=== PATIENT | male | born 1990 | race American Indian/Alaskan Native ===

== ENCOUNTER 2019-01-18 20:23 | Emergency (ER) | payer BC ==
[2019-01-18 20:30] VITALS: BP 118/79
[2019-01-18] MEDS ORDERED: DUONEB *Not for PRN Use IH ONE (20:31)
[2019-01-18] MEDS ORDERED: DECADRON IM ONE (20:31)
--- NOTE | 2019-01-18 20:31 | Emergency Department Report ---
Blank Doc - Documentation Documentation: 28-year-old male that presents with cough with SOB. This initial assessment/diagnostic orders/clinical plan/treatment(s) is/are subject to change based on patient's health status, clinical progression and re- assessment by fellow clinical providers in the ED. Further treatment and workup at subsequent clinical providers discretion. Patient/guardians urged not to elope from the ED as their condition may be serious if not clinically assessed and managed. Initial orders include: 1- Patient sent to [facility] for further evaluation and treatment 2- breathing treatment/steroids 3- CXR
--- NOTE | 2019-01-18 21:44 | XRay Report ---
CHEST 2 VIEWS INDICATION / CLINICAL INFORMATION: cough. COMPARISON: None available. FINDINGS: SUPPORT DEVICES: None. HEART / MEDIASTINUM: No significant abnormality. LUNGS / PLEURA: No significant pulmonary or pleural abnormality. No pneumothorax. ADDITIONAL FINDINGS: No significant additional findings. IMPRESSION: 1. No acute findings. Signer Name: Howie Spence MD Signed: 01/18/2019 9:39 PM Workstation Name: [id number]
--- NOTE | 2019-01-18 22:18 | Emergency Department Report ---
ED Shortness of Breath [facility] - General Chief Complaint: Dyspnea/Respdistress Stated Complaint: SOB Time Seen by Provider: 01/18/19 20:30 Source: patient Mode of arrival: Ambulatory Limitations: No Limitations - History of Present Illness Initial Comments: 28-year-old -[place] male presents to the emergency room for cough and shortness of breath. Patient reports he was seen by PMD earlier today and was told he had pneumonia. Patient came in for chest x-ray per his primary care provider. Patient reports he was placed on antibiotics but does not know the name. MD Complaint: shortness of breath, cough - Related Data Allergies Allergy/AdvReac Type Severity Reaction Status Date / Time No Known Allergies Allergy Verified 01/18/19 20:30 ED Review of Systems ROS: Stated complaint: SOB Other details as noted in HPI ED Past Medical Hx - Past Medical History Previous Medical History?: No - Surgical History Past Surgical History?: No - Social History Smoking Status: Current Every Day Smoker Substance Use Type: Alcohol ED Physical Exam - General Limitations: No Limitations General appearance: alert, in no apparent distress - Head Head exam: Present: atraumatic, normocephalic - Eye Eye exam: Present: normal appearance - ENT ENT exam: Present: mucous membranes moist - Respiratory Respiratory exam: Present: normal lung sounds bilaterally. Absent: respiratory distress - Cardiovascular Cardiovascular Exam: Present: regular rate, normal rhythm. Absent: systolic murmur, diastolic murmur, rubs, gallop - Back Exam Back exam: Present: normal inspection, full ROM - Neurological Exam Neurological exam: Present: alert, oriented X3 - Psychiatric Psychiatric exam: Present: normal affect, normal mood - Skin Skin exam: Present: warm, dry, intact, normal color. Absent: rash ED Course Vital Signs 01/18/19 01/18/19 20:24 21:11 Temperature 98.2 F Pulse Rate 73 Pulse Rate [ 97 H Anterior] Respiratory 18 Rate Respiratory 20 Rate [Anterior] Blood Pressure 118/79 O2 Sat by Pulse 97 Oximetry ED Medical Decision Making - Radiology Data Radiology results: report reviewed Patient: LETICIA DILLARD MR#: [id number] : 1990 Acct:[id number] Age/Sex: 28 / M ADM Date: 01/18/19 Loc: ED Attending Dr: Ordering Physician: DARRUIS GALLARDO NP Date of Service: 01/18/19 Procedure(s): XR chest routine 2V Accession Number(s): [id number] cc: DARRIUS GALLARDO NP Fluoro Time In Minutes: CHEST 2 VIEWS INDICATION / CLINICAL INFORMATION: cough. COMPARISON: None available. FINDINGS: SUPPORT DEVICES: None. HEART / MEDIASTINUM: No significant abnormality. LUNGS / PLEURA: No significant pulmonary or pleural abnormality. No pneumothorax. ADDITIONAL FINDINGS: No significant additional findings. IMPRESSION: 1. No acute findings. Signer Name: Howie Spence MD Signed: 01/18/2019 9:39 PM Workstation Name: [id number] Transcribed By: TAVIA Dictated By: Howie Spence MD Electronically Authenticated By: Howie Spence MD Signed Date/Time: 01/18/192138 DD/ 37 TD/TT: - Medical Decision Making 28-year-old -[place] male presents to the emergency room for cough and shortness of breath. Patient reports he was seen by PMD earlier today and was told he had pneumonia. Patient came in for chest x-ray per his primary care provider. Patient reports he was placed on antibiotics but does not know the name. CXR completed. Normal examination. Patient is to continue with antibiotics as prescribed by his Provider. Critical care attestation.: If time is entered above; I have spent that time in minutes in the direct care of this critically ill patient, excluding procedure time. ED Disposition Clinical Impression: Cough Disposition: DC-01 TO HOME OR SELFCARE Is pt being admited?: No Does the pt Need Aspirin: No Condition: Stable Instructions: Acute Cough (ED) Additional Instructions: Please continue with antibiotics and cough medication tablets per prescribed by your primary care provider. Please increase her fluid intake eventually as tolerated. Follow back up with her primary care provider next 5-7 days if symptoms aren't improved Referrals: Your,PCP [Other] - 3-5 Days Forms: Work/School Release Form(ED)
== END 2019-01-18 22:22 | disposition home or self-care (01) ==
LOC: ED 20:23
DX: J18.9 Pneumonia, unspecified organism (principal); F17.200 Nicotine dependence, unspecified, uncomplicated
CPT/HCPCS: 71046; 94640; 96372; 99284; J1100; 94644

== ENCOUNTER 2019-04-11 23:08 | Emergency (ER) | payer SELFPAY ==
[2019-04-11 23:14] VITALS: BP 132/72
[2019-04-11] MEDS ORDERED: KETOROLAC 60 MG/2 ML INJ IM STA (23:44)
[2019-04-11] MEDS ORDERED: HYDROcodone/ACETAMINOPHEN 10-325MG TAB PO STA (23:50)
[2019-04-11] MEDS ORDERED: METAXALONE 800 MG TAB PO STA (23:52)
--- NOTE | 2019-04-11 23:58 | Emergency Department Report ---
ED Back Pain/Injury HPI - General Chief Complaint: Back Pain/Injury Stated Complaint: BACK PAIN Time Seen by Provider: 04/11/19 23:44 Source: patient Limitations: No Limitations - History of Present Illness MD Complaint: back pain, back injury -: days(s) Similar Symptoms Previously: Yes Radiation: none Severity: moderate Quality: dull, aching Consistency: constant Improves With: none Worsens With: none Associated Symptoms: denies: chest pain, numbness, difficulty walking, cough, incontinence, fever/chills, constipation, headaches, loss of appetite, rash, seizure, shortness of breath - Related Data Previous Rx's Medication Instructions Recorded Last Taken Type Ketorolac [Toradol] 10 mg PO Q6H PRN #15 tablet 04/12/19 Unknown Rx methOCARBAMOL [Robaxin] 750 mg PO Q8H PRN #21 tablet 04/12/19 Unknown Rx Allergies Allergy/AdvReac Type Severity Reaction Status Date / Time No Known Allergies Allergy Verified 01/18/19 20:30 ED Review of Systems ROS: Stated complaint: BACK PAIN Other details as noted in HPI Comment: All other systems reviewed and negative ED Past Medical Hx - Past Medical History Previous Medical History?: No - Surgical History Hx Cholecystectomy: Yes - Social History Smoking Status: Current Every Day Smoker Substance Use Type: Alcohol - Medications Home Medications: Home Medications Medication Instructions Recorded Confirmed Last Taken Type Ketorolac [Toradol] 10 mg PO Q6H PRN #15 tablet 04/12/19 Unknown Rx methOCARBAMOL [Robaxin] 750 mg PO Q8H PRN #21 tablet 04/12/19 Unknown Rx ED Physical Exam - General Limitations: No Limitations General appearance: alert, in no apparent distress - Head Head exam: Present: atraumatic, normocephalic - Eye Eye exam: Present: normal appearance, PERRL, EOMI Pupils: Present: normal accommodation - ENT ENT exam: Present: normal exam, normal orophraynx, mucous membranes moist, TM's normal bilaterally - Neck Neck exam: Present: normal inspection, tenderness. Absent: meningismus, lymphadenopathy, thyromegaly - Respiratory Respiratory exam: Present: normal lung sounds bilaterally. Absent: respiratory distress, wheezes, rales, rhonchi, chest wall tenderness, accessory muscle use, decreased breath sounds - Cardiovascular Cardiovascular Exam: Present: regular rate, normal rhythm. Absent: tachycardia, systolic murmur, diastolic murmur, rubs, gallop - GI/Abdominal GI/Abdominal exam: Present: soft, normal bowel sounds. Absent: tenderness, guarding, hyperactive bowel sounds, hypoactive bowel sounds, organomegaly, mass, bruit, pulsatile mass - Rectal Rectal exam: Present: deferred - Extremities Exam Extremities exam: Present: normal inspection, normal capillary refill - Back Exam Back exam: Present: normal inspection, other. Absent: CVA tenderness (R), CVA tenderness (L), muscle spasm, paraspinal tenderness, vertebral tenderness - Neurological Exam Neurological exam: Present: alert, oriented X3, CN II-XII intact, normal gait. Absent: motor sensory deficit, reflexes normal - Psychiatric Psychiatric exam: Present: normal affect, normal mood. Absent: anxious, flat affect, homicidal ideation - Skin Skin exam: Present: warm, dry, intact, normal color. Absent: rash, cyanosis, diaphoretic, urticaria ED Course Vital Signs 04/11/19 04/11/19 04/12/19 23:11 23:56 00:10 Temperature 98.7 F Pulse Rate 81 Respiratory 18 20 20 Rate Blood Pressure 132/72 O2 Sat by Pulse 94 Oximetry ED Medical Decision Making - Medical Decision Making Mr. Graham presents emergency department complaining of acute onset of back pain that started earlier today when he had awakened. He denies any recent traumatic injury. Physical examination and history showed no neurological urgencies or emergencies. Clinically this patient can be ruled out for serious pathology given there is a completely normal neurological exam, no history of IV drug use, and no history of bowel or bladder incontinence, no perianal numbness/tingling, no constipation or urinary retention. Once the patient?s pain was adequately controlled, the patient was able to ambulate and be discharged in stable condition with anticipatory guidance provided. Given History and Exam I estimate there is LOW risk for ABDOMINAL AORTIC ANEURYSM, CAUDA EQUINA SYNDROME, EPIDURAL MASS LESION, SPINAL STENOSIS, OR HERNIATED DISK CAUSING SEVERE STENOSIS, Spinal Cord Compression Syndrome, Vertebral Malignancy/Mets, acute Spinal Fracture, Vertebral Osteomyelitis, Epidural Abscess, Infected or Obstructing Kidney Stone, thus I consider the discharge disposition reasonable. We have discussed the diagnosis and risks, and we agree with discharging home to follow-up with their primary doctor. We also discussed returning to the Emergency Department immediately if new or worsening symptoms occur. We have discussed the symptoms which are most concerning (e.g., saddle anesthesia, urinary or bowel incontinence or retention, changing or worsening pain) that necessitate immediate return Their presentation appears most likely to be secondary to non-emergent musculoskeletal etiology vs non-emergent disc herniation. Critical care attestation.: If time is entered above; I have spent that time in minutes in the direct care of this critically ill patient, excluding procedure time. ED Disposition Clinical Impression: Lumbago Disposition: TO HOME OR SELFCARE Is pt being admited?: No Does the pt Need Aspirin: No Condition: Stable Instructions: Low Back Strain (ED), Back Pain (ED) Prescriptions: methOCARBAMOL [Robaxin] 750 mg PO Q8H PRN #21 tablet PRN Reason: Spasms Ketorolac [Toradol] 10 mg PO Q6H PRN #15 tablet PRN Reason: Pain Referrals: [facility] [Provider Group] - 2-3 Days
== END 2019-04-12 00:27 | disposition home or self-care (01) ==
LOC: ED 23:08
DX: M54.5 Low back pain (principal); F17.200 Nicotine dependence, unspecified, uncomplicated; F10.10 Alcohol abuse, uncomplicated; Z90.49 Acquired absence of other specified parts of digestive tract; Z79.899 Other long term (current) drug therapy
CPT/HCPCS: 96372; 99282; J1885

== ENCOUNTER 2019-05-07 00:38 | Emergency (ER) | payer BC ==
[2019-05-07 00:54] VITALS: BP 118/72
--- NOTE | 2019-05-07 01:09 | Emergency Department Report ---
HPI - General Chief Complaint: Upper Respiratory Infection Time Seen by Provider: 05/07/19 00:58 - HPI HPI: Room 34 The patient is 28-year-old male presenting with chief complaint of cough and body aches. The patient states he's had a cough that been productive of yellow sputum for approximately 1 week. Patient admits to a subjective fever, dizziness and fatigue. The patient states he's been taking DayQuil and TheraFlu but has not helped. This evening patient began to feel hot and had "aching" in his bones. Patient denies rhinorrhea or sick contacts. The patient states he was taking Keflex for the past 2 days from previous prescription he never completed. ED Past Medical Hx - Past Medical History Previous Medical History?: No Additional medical history: Infectious disease process (CD4 WNL Winter 2018) - Surgical History Past Surgical History?: Yes Hx Cholecystectomy: Yes - Family History Family history: no significant - Social History Smoking Status: Current Every Day Smoker (1/2 pack per day) Substance Use Type: Alcohol (occasional) - Medications Home Medications: Home Medications Medication Instructions Recorded Confirmed Last Taken Type Ketorolac [Toradol] 10 mg PO Q6H PRN #15 tablet 04/12/19 Unknown Rx methOCARBAMOL [Robaxin] 750 mg PO Q8H PRN #21 tablet 04/12/19 Unknown Rx ALBUTEROL Inhaler (OR & NICU) 2 puff IH QID PRN #8.5 gram 05/07/19 Unknown Rx [ProAir HFA Inhaler] Benzonatate [Tessalon Perles] 100 mg PO Q8HR #30 capsule 05/07/19 Unknown Rx HYDROcodone/APAP 5-325 [[place] 1 - 2 each PO Q6HR PRN #14 tablet 05/07/19 Unknown Rx 5/325] Ibuprofen [Motrin 800 MG tab] 800 mg PO Q8HR PRN #20 tablet 05/07/19 Unknown Rx ED Review of Systems ROS: Stated complaint: CHEST PAIN/FATIGUE/FEVER/COUGH/WEAKNESS Other details as noted in HPI Constitutional: fever (subjective) Eyes: denies: eye pain ENT: throat pain Respiratory: cough Endocrine: no symptoms reported Musculoskeletal: myalgia Physical Exam - Physical Exam Vital Signs: Vital Signs 05/07/19 00:54 Temperature 98.6 F Pulse Rate 84 Respiratory 18 Rate Blood Pressure 118/72 O2 Sat by Pulse 96 Oximetry Physical Exam: GENERAL: The patient is well-developed well-nourished male sitting in chair not appearing to be in acute distress. [] HEENT: Normocephalic. Atraumatic. Extraocular motions are intact. Patient has moist mucous membranes. Oropharynx clear NECK: Supple. No meningitic signs are noted. There is no stridor CHEST/LUNGS: Clear to auscultation. There is no respiratory distress noted. HEART/CARDIOVASCULAR: Regular. There is no tachycardia. There is no gallop rub or murmur. ABDOMEN: Patient has normal bowel sounds. SKIN: There is no rash. There is no edema. There is no diaphoresis. NEURO: The patient is awake, alert, and oriented. The patient is cooperative. The patient has normal speech MUSCULOSKELETAL: There is no evidence of acute injury. ED Course Vital Signs 05/07/19 00:54 Temperature 98.6 F Pulse Rate 84 Respiratory 18 Rate Blood Pressure 118/72 O2 Sat by Pulse 96 Oximetry ED Medical Decision Making - Lab Data Spoke with lab who states patient's influenza swab is positive for influenza B - Radiology Data Radiology results: report reviewed (CXR), image reviewed (CXR) interpreted by me: CXR- no focal infiltrate no ptx CXR (read by radiologist)- no acute disease - Differential Diagnosis influenza, pneumonia, bronchitis Critical care attestation.: If time is entered above; I have spent that time in minutes in the direct care of this critically ill patient, excluding procedure time. ED Disposition Clinical Impression: Influenza Disposition: DC-01 TO HOME OR SELFCARE Is pt being admited?: No Does the pt Need Aspirin: No Condition: Stable Instructions: Influenza (ED) Prescriptions: Ibuprofen [Motrin 800 MG tab] 800 mg PO Q8HR PRN #20 tablet PRN Reason: Pain, Moderate (4-6) HYDROcodone/APAP 5-325 [[place] 5/325] 1 - 2 each PO Q6HR PRN #14 tablet PRN Reason: Pain ALBUTEROL Inhaler (OR & NICU) [ProAir HFA Inhaler] 2 puff IH QID PRN #8.5 gram PRN Reason: Shortness Of Breath Benzonatate [Tessalon Perles] 100 mg PO Q8HR #30 capsule Referrals: PRIMARY CARE, [Primary Care Provider] - 3-5 Days Time of Disposition: 03:40
--- NOTE | 2019-05-07 01:29 | XRay Report ---
CHEST 2 VIEWS INDICATION / CLINICAL INFORMATION: cough, body aches. COMPARISON: 2 views of the chest from 01/18/2019. FINDINGS: SUPPORT DEVICES: None. HEART / MEDIASTINUM: No significant abnormality. LUNGS / PLEURA: No significant pulmonary or pleural abnormality. No pneumothorax. ADDITIONAL FINDINGS: No significant additional findings. IMPRESSION: 1. No acute abnormality of the chest. Signer Name: Yaron Galindo MD Signed: 05/07/2019 1:25 AM Workstation Name: [id number]
[2019-05-07] MEDS ORDERED: IPRATROPIUM/ALBUTEROL SULFATE 3 ML AMPUL.NEB IH ONE (01:57)
== END 2019-05-07 03:50 | disposition home or self-care (01) ==
LOC: ED 00:38
DX: J11.1 Influenza due to unidentified influenza virus with other respiratory manifestations (principal); F17.210 Nicotine dependence, cigarettes, uncomplicated; Z90.49 Acquired absence of other specified parts of digestive tract; Z79.899 Other long term (current) drug therapy
CPT/HCPCS: 71046; 87400; 94640; 94644

== ENCOUNTER 2019-05-27 03:35 | Emergency (ER) | payer BC ==
[2019-05-27 03:54] VITALS: BP 141/77
--- NOTE | 2019-05-27 05:20 | Emergency Department Report ---
Abscess Boil HPI - HPI Chief Complaint: Skin/Abscess/Foreign Body Stated Complaint: POSS ABCESS RT UNDERARM Time Seen by Provider: 05/27/19 04:40 Duration: 3 Days Location: Upper Extremity Severity: Mild History: Yes Pain, No Fever, No Purulent Drainage, No Numbness, No Foreign Body, No Previous History, No Insect Bite HPI: This is a 28-year-old male nontoxic, well nourished in appearance, no acute signs of distress presents to the ED with c/o of left axillar abscess x3 days. Patient denies any pus or drainage. Patient denies any fever, chills, nausea, vomiting, chest pain, shortness of breath, headache or stiff neck. Patient denies any allergies or significant past medical history. Home Medications: Previous Rx's Medication Instructions Recorded Last Taken Type Ketorolac [Toradol] 10 mg PO Q6H PRN #15 tablet 04/12/19 Unknown Rx methOCARBAMOL [Robaxin] 750 mg PO Q8H PRN #21 tablet 04/12/19 Unknown Rx ALBUTEROL Inhaler (OR & NICU) 2 puff IH QID PRN #8.5 gram 05/07/19 Unknown Rx [ProAir HFA Inhaler] Benzonatate [Tessalon Perles] 100 mg PO Q8HR #30 capsule 05/07/19 Unknown Rx HYDROcodone/APAP 5-325 [[place] 1 - 2 each PO Q6HR PRN #14 tablet 05/07/19 Unknown Rx 5/325] Ibuprofen [Motrin 800 MG tab] 800 mg PO Q8HR PRN #20 tablet 05/07/19 Unknown Rx Acetaminophen/Codeine [Tylenol 1 tab PO Q6H PRN #12 tab 05/27/19 Unknown Rx /Codeine # 3 tab] Sulfamethoxazole/Trimethoprim 1 each PO BID #14 tablet 05/27/19 Unknown Rx [Bactrim DS TAB] Allergies/Adverse Reactions: Allergies Allergy/AdvReac Type Severity Reaction Status Date / Time No Known Allergies Allergy Verified 01/18/19 20:30 ED Review of Systems ROS: Stated complaint: POSS ABCESS RT UNDERARM Other details as noted in HPI Constitutional: denies: chills, fever Eyes: denies: eye pain, eye discharge, vision change ENT: denies: ear pain, throat pain Respiratory: denies: cough, shortness of breath, wheezing Cardiovascular: denies: chest pain, palpitations Endocrine: no symptoms reported Gastrointestinal: denies: abdominal pain, nausea, diarrhea Genitourinary: denies: urgency, dysuria Musculoskeletal: denies: back pain, joint swelling, arthralgia Skin: denies: rash, lesions Neurological: denies: headache, weakness, paresthesias Psychiatric: denies: anxiety, depression Hematological/Lymphatic: denies: easy bleeding, easy bruising ED Past Medical Hx - Past Medical History Previous Medical History?: No Additional medical history: Infectious disease process (CD4 WNL Winter 2018) - Surgical History Past Surgical History?: Yes Hx Cholecystectomy: Yes - Social History Smoking Status: Current Every Day Smoker Substance Use Type: Alcohol - Medications Home Medications: Home Medications Medication Instructions Recorded Confirmed Last Taken Type Ketorolac [Toradol] 10 mg PO Q6H PRN #15 tablet 04/12/19 Unknown Rx methOCARBAMOL [Robaxin] 750 mg PO Q8H PRN #21 tablet 04/12/19 Unknown Rx ALBUTEROL Inhaler (OR & NICU) 2 puff IH QID PRN #8.5 gram 05/07/19 Unknown Rx [ProAir HFA Inhaler] Benzonatate [Tessalon Perles] 100 mg PO Q8HR #30 capsule 05/07/19 Unknown Rx HYDROcodone/APAP 5-325 [[place] 1 - 2 each PO Q6HR PRN #14 tablet 05/07/19 Unknown Rx 5/325] Ibuprofen [Motrin 800 MG tab] 800 mg PO Q8HR PRN #20 tablet 05/07/19 Unknown Rx Acetaminophen/Codeine [Tylenol 1 tab PO Q6H PRN #12 tab 05/27/19 Unknown Rx /Codeine # 3 tab] Sulfamethoxazole/Trimethoprim 1 each PO BID #14 tablet 05/27/19 Unknown Rx [Bactrim DS TAB] ED Abscess Boil Physical Exam - Exam General: Vital signs noted. No distress. Alert and acting appropriately. Size: 2 cm Exam: Yes Tenderness, Yes Fluctuance, Yes Normal Neurologic Exam, Yes Normal Circulation, No Surrounding Cellulites/Erythema, No Lymphangitis, No Crepitation, No Heart Murmur I & D Note - I & D Note I & D Note: Under sterile field, I used Betadine to cleanse the area. I then used 2% lidocaine plain with 25-gauge 5/8 needle to inject area for anesthetic purposes. Total volume injected 3 mL. I then used an 11 blade to make a 1 cm incision. About 2 mL's of purulent drainage has been noted. I then used a hemostat to break the abscess formation. I then used sterile 0.9% normal saline flush to flush the wound with total volume of 40 mL used. I then put a 1/4 iodoform packing to the incision. A sterile 4 x 4 with tape has been applied as dressing. Bleeding is under control. Patient tolerated the procedure well with no signs of distress noted. ED Course Vital Signs 05/27/19 03:44 Temperature 98.4 F Pulse Rate 93 H Respiratory 18 Rate Blood Pressure 141/77 O2 Sat by Pulse 96 Oximetry - Reevaluation(s) Reevaluation #1: 05/27/19 05:18 Patient is speaking in full sentences with no signs of distress noted. Critical care attestation.: If time is entered above; I have spent that time in minutes in the direct care of this critically ill patient, excluding procedure time. ED Medical Decision Making - Medical Decision Making This is a 28-year-old male that presents with left axillary abscess. Patient is stable and was examined by me. This is incision and drainage and has been performed and patient tolerated well. A sterile dressing has been applied. Patient was educated on proper wound care. Patient is discharged with Bactrim and Tylenol with codeine and was instructed not to operate any machinery while taking Tylenol with codeine due to drowsiness. Patient was instructed to return in 2 days for packing removal. Patient was instructed to refer to Follow-up with a primary care doctor in 3-5 days or if symptoms worsen and continue return to emergency room as soon as possible. At time of discharge, the patient does not seem toxic or ill in appearance. No acute signs of distress noted. Patient agrees to discharge treatment plan of care. No further questions noted by the patient. ED Disposition Clinical Impression: Abscess, Encounter for incision and drainage procedure Disposition: TO HOME OR SELFCARE Is pt being admited?: No Does the pt Need Aspirin: No Condition: Stable Instructions: Incision and Drainage (ED), Abscess (ED) Additional Instructions: Follow-up with a primary care doctor in 3-5 days or if symptoms worsen and continue return to emergency room as soon as possible. Do not operate any machinery while taking Tylenol with codeine as this may cause drowsiness. Return in 2 days for packing removal. Prescriptions: Sulfamethoxazole/Trimethoprim [Bactrim DS TAB] 1 each PO BID #14 tablet Acetaminophen/Codeine [Tylenol /Codeine # 3 tab] 1 tab PO Q6H PRN #12 tab PRN Reason: Pain , Severe (7-10) Referrals: PRIMARY MD APARNA [Primary Care Provider] - 3-5 Days MING GREENFIELD MD [Staff Physician] - 3-5 Days [facility] [Outside] - 3-5 Days Forms: Work/School Release Form(ED)
== END 2019-05-27 05:30 | disposition home or self-care (01) ==
LOC: ED 03:35
DX: L02.412 Cutaneous abscess of left axilla (principal); F17.200 Nicotine dependence, unspecified, uncomplicated; Z79.899 Other long term (current) drug therapy
CPT/HCPCS: 99282

== ENCOUNTER → 2019-05-28 16:55 | Emergency (ER) | payer BC | END | disposition left against medical advice (07) | LOC: ED 16:55 | DX: M79.601 Pain in right arm (principal); Z53.21 Procedure and treatment not carried out due to patient leaving prior to being seen by health care provider ==

== ENCOUNTER 2019-07-29 01:47 | Emergency (ER) | payer BC ==
[2019-07-29 02:04] VITALS: BP 113/79
--- NOTE | 2019-07-29 02:25 | XRay Report ---
CHEST PA AND LATERAL VIEWS INDICATION: cough. COMPARISON: 05/07/2019 FINDINGS: Support devices: None. Heart: Within normal limits. Lungs/Pleura: No acute pulmonary or pleural findings. IMPRESSION: 1. No acute findings. Signer Name: Abiodun Saenz MD Signed: 07/29/2019 2:20 AM Workstation Name: [id number]
[2019-07-29] MEDS ORDERED: IPRATROPIUM/ALBUTEROL SULFATE 3 ML AMPUL.NEB IH ONE ×2 (02:28→03:17)
[2019-07-29] MEDS ORDERED: predniSONE 20 MG TAB PO ONE (02:28)
--- NOTE | 2019-07-29 02:29 | Emergency Department Report ---
Minor Respiratory - HPI Chief Complaint: Upper Respiratory Infection Stated Complaint: COUGH Time Seen by Provider: 07/29/19 02:20 Duration: 2 weeks Severity: moderate Minor Respiratory: Yes Able to Tolerate Fluids, Yes Cough, No Rhinorrhea, No Sore Throat, No Ear Pain, No Sick Contacts, No Hemoptysis, No Chest Pain, No Shortness of Breath, No Fever Other History: This is a 29-year-old -[place] male who presents to the emergency room with cough, wheezing, and congestion for 2 weeks. Denies past medical history of COPD and asthma. Patient states he is a current cigarette smoker. Patient states he he returned from [place] on Thursday night with worsening symptoms. Patient states cough when supine. Currently taking [id number] cold and flu medications. Patient states he also to 3 leftover antibiotics with no change in symptoms. Denies recent travel outside of the country. Denies chest pain, shortness of breath, myalgias, weakness, fever, and chills. ED Review of Systems ROS: Stated complaint: COUGH Other details as noted in HPI Constitutional: denies: chills, fever ENT: congestion. denies: ear pain, throat pain Respiratory: cough, wheezing. denies: shortness of breath Cardiovascular: denies: chest pain, palpitations Gastrointestinal: denies: abdominal pain, nausea, diarrhea Musculoskeletal: denies: back pain, joint swelling, arthralgia Skin: denies: rash, lesions Neurological: denies: headache, weakness, paresthesias Psychiatric: denies: anxiety, depression ED Past Medical Hx - Past Medical History Previous Medical History?: Yes Hx HIV: Yes Additional medical history: Infectious disease process (CD4 WNL Winter 2018) - Surgical History Past Surgical History?: Yes Hx Cholecystectomy: Yes - Social History Smoking Status: Current Every Day Smoker Substance Use Type: None - Medications Home Medications: Home Medications Medication Instructions Recorded Confirmed Last Taken Type Ketorolac [Toradol] 10 mg PO Q6H PRN #15 tablet 04/12/19 Unknown Rx methOCARBAMOL [Robaxin] 750 mg PO Q8H PRN #21 tablet 04/12/19 Unknown Rx Benzonatate [Tessalon Perles] 100 mg PO Q8HR #30 capsule 05/07/19 Unknown Rx HYDROcodone/APAP 5-325 [[place] 1 - 2 each PO Q6HR PRN #14 tablet 05/07/19 Unknown Rx 5/325] Ibuprofen [Motrin 800 MG tab] 800 mg PO Q8HR PRN #20 tablet 05/07/19 Unknown Rx Acetaminophen/Codeine [Tylenol 1 tab PO Q6H PRN #12 tab 05/27/19 Unknown Rx /Codeine # 3 tab] Sulfamethoxazole/Trimethoprim 1 each PO BID #14 tablet 05/27/19 Unknown Rx [Bactrim DS TAB] Albuterol INH(or & Nicu Only) 2 puff IH QID PRN #8.5 gram 07/29/19 Unknown Rx [ProAir HFA Inhaler] Benzonatate [Tessalon Perles] 100 mg PO Q8HR PRN #30 capsule 07/29/19 Unknown Rx methylPREDNISolone [Medrol 4MG 4 mg PO DAILY #1 tab.ds.pk 07/29/19 Unknown Rx DOSEPAK (21 tabs)] Minor Respiratory Exam - Exam General: Vital signs noted. No distress. Alert and acting appropriately. HEENT: Yes Moist Mucous Membranes, Yes Rhinorrhea (Turbinates congested with clear discharge), No Pharyngeal Erythema, No Pharyngeal Exudates, No Conjuctival Injection, No Frontal Tenderness, No Maxillary Tenderness Ear: Neither TM Bulge, Neither TM Erythema, Neither EAC Pain, Neither EAC Discharge Neck: Yes Supple, No Adenopathy Lungs: Yes Wheezes, No Good Air Exchange, No Ronchi, No Stridor, No Cough, No Labored Respirations, No Retractions, No Use of Accessory Muscles, No Other Abnormal Lung Sounds Heart: Yes Regular, No Murmur Abdomen: Yes Normal Bowel Sounds, No Tenderness, No Peritoneal Signs Skin: No Rash, No Edema Neurologic: Alert and oriented, no deficits. Musculoskeletal: Unremarkable. ED Course Vital Signs 07/29/19 02:00 Temperature 97.7 F Pulse Rate 79 Respiratory 20 Rate Blood Pressure 113/79 O2 Sat by Pulse 91 Oximetry ED Medical Decision Making - Radiology Data Radiology results: report reviewed CHEST PA AND LATERAL VIEWS INDICATION: cough. COMPARISON: 05/07/2019 FINDINGS: Support devices: None. Heart: Within normal limits. Lungs/Pleura: No acute pulmonary or pleural findings. IMPRESSION: 1. No acute findings. - Medical Decision Making 23 y.o. male that presents with URI symptoms. Patient examined by me and stable. No distress noted. Patient afebrile. No hypoxia. Wheezing on exam. Chest xray has been obtained and did not find any acute abnormalities or infiltrates. Given DuoNeb treatments x2 and prednisone. Monitored and reevaluated with improvement of lung sounds. History, physical exam, and radiographic findings were discussed with the patient. Patient symptoms are most likely viral bronchitis. Informed antibiotics are unlikely to improve symptoms. Symptoms are less likely pneumothorax, pneumonia, GERD, and PE. Supportive treatment d iscussed with patient. Start albuterol inhaler, short course of steroids, and cough suppressant. Instructed to follow-up with a primary care doctor in 2 to 3 days if symptoms are worsening. The patient expressed understanding and agreement with this plan. Patient discharged home stable. Critical care attestation.: If time is entered above; I have spent that time in minutes in the direct care of this critically ill patient, excluding procedure time. ED Disposition Clinical Impression: Cough Acute bronchitis Qualifiers: Bronchitis organism: unspecified organism Qualified Code(s): J20.9 - Acute bronchitis, unspecified Nicotine dependence Qualifiers: Nicotine product type: cigarettes Substance use status: uncomplicated Qualified Code(s): F17.210 - Nicotine dependence, cigarettes, uncomplicated Disposition: DC-01 TO HOME OR SELFCARE Is pt being admited?: No Condition: Stable Instructions: Acute Bronchitis (ED) Additional Instructions: Take medication as prescribed. Follow-up with your primary care doctor in the next 2 to 3 days if symptoms are worse. Return to the emergency room if you experience shortness of breath, chest pain, palpitations, or worsening wheezing. Prescriptions: methylPREDNISolone [Medrol 4MG DOSEPAK (21 tabs)] 4 mg PO DAILY #1 tab.ds.pk Albuterol INH(or & Nicu Only) [ProAir HFA Inhaler] 2 puff IH QID PRN #8.5 gram PRN Reason: Shortness Of Breath Benzonatate [Tessalon Perles] 100 mg PO Q8HR PRN #30 capsule PRN Reason: Cough Referrals: JAMES JAUREGUI DO [Staff Physician] - 3-5 Days [facility] [Provider Group] - 3-5 Days [facility] [Provider Group] - 3-5 Days
== END 2019-07-29 04:01 | disposition home or self-care (01) ==
LOC: ED 01:47
DX: J20.9 Acute bronchitis, unspecified (principal); F17.210 Nicotine dependence, cigarettes, uncomplicated; Z90.49 Acquired absence of other specified parts of digestive tract; Z79.1 Long term (current) use of non-steroidal anti-inflammatories (NSAID); Z79.899 Other long term (current) drug therapy
CPT/HCPCS: 71046; 94640; 99283; J7512

== ENCOUNTER 2019-10-03 13:42 | Emergency (ER) | payer BC ==
[2019-10-03] MEDS ORDERED: PANTOPRAZOLE 40 MG INJ IV ONE (14:13)
[2019-10-03] MEDS ORDERED: SODIUM CHLORIDE 0.9% 1000 ML 1,000 ML IV ONE (14:13)
[2019-10-03] MEDS ORDERED: MORPHINE 4 MG/1 ML INJ IV ONE (14:13)
[2019-10-03] MEDS ORDERED: ONDANSETRON 4 MG/2 ML INJ IV ONE (14:13)
[2019-10-03 14:17] LABS: Basophils % (Auto) 0.1 % (0.0-1.8); Hematocrit 45.9 % (35.5-45.6); Hemoglobin 15.9 gm/dl (11.8-15.2); Lymphocytes # (Auto) 1.6 K/mm3 (1.2-5.4); Lymphocytes % (Auto) 15.5 % (13.4-35.0); Mean Corpuscular HGB Conc 35 % (32-34); Mean Corpuscular Volume 95 fl (84-94); Monocytes # (Auto) 0.6 K/mm3 (0.0-0.8); Monocytes % (Auto) 5.9 % (0.0-7.3); Platelet Count 324 K/mm3 (140-440); Red Blood Count 4.84 M/mm3 (3.65-5.03); Red Cell Distribution Width 13.2 % (13.2-15.2)
[2019-10-03 14:33] LABS: Alanine Aminotransferase 20 units/L (7-56); Albumin 4.5 g/dL (3.9-5); BUN/Creatinine Ratio 11; Blood Urea Nitrogen 11 mg/dL (9-20); Calcium 9.9 mg/dL (8.4-10.2); Hemolysis Index 8
--- NOTE | 2019-10-03 15:06 | Emergency Department Report ---
ED Abdominal Pain HPI - General Chief Complaint: Abdominal Pain Stated Complaint: VOMIT/ABD PAIN Time Seen by Provider: 10/03/19 14:02 Source: patient Mode of arrival: Ambulatory Limitations: No Limitations - History of Present Illness Initial Comments: Patient is a 29-year-old male who presents emergency room with complaints of upper abdominal pain that began around 3 AM this morning. He has associated nausea and vomiting. He states that his abdomen feels distended. He states he had a normal bowel movement yesterday. He denies any diarrhea, fever, recent travel, hematemesis, hematochezia, melena. Patient states that he was drinking alcohol approximately 3 days ago. He has a past medical history of HIV and is on his antivirals, he states his CD4 count is normal. He denies any allergies to medications. He has a history of a cholecystectomy. Severity scale (0 -10): 10 - Related Data Previous Rx's Medication Instructions Recorded Last Taken Type Ketorolac [Toradol] 10 mg PO Q6H PRN #15 tablet 04/12/19 Unknown Rx methOCARBAMOL [Robaxin] 750 mg PO Q8H PRN #21 tablet 04/12/19 Unknown Rx Benzonatate [Tessalon Perles] 100 mg PO Q8HR #30 capsule 05/07/19 Unknown Rx HYDROcodone/APAP 5-325 [[place] 1 - 2 each PO Q6HR PRN #14 tablet 05/07/19 Unknown Rx 5/325] Ibuprofen [Motrin 800 MG tab] 800 mg PO Q8HR PRN #20 tablet 05/07/19 Unknown Rx Acetaminophen/Codeine [Tylenol 1 tab PO Q6H PRN #12 tab 05/27/19 Unknown Rx /Codeine # 3 tab] Sulfamethoxazole/Trimethoprim 1 each PO BID #14 tablet 05/27/19 Unknown Rx [Bactrim DS TAB] Albuterol INH(or & Nicu Only) 2 puff IH QID PRN #8.5 gram 07/29/19 Unknown Rx [ProAir HFA Inhaler] Benzonatate [Tessalon Perles] 100 mg PO Q8HR PRN #30 capsule 07/29/19 Unknown Rx methylPREDNISolone [Medrol 4MG 4 mg PO DAILY #1 tab.ds.pk 07/29/19 Unknown Rx DOSEPAK (21 tabs)] Famotidine [Pepcid] 40 mg PO QHS #14 tablet 10/03/19 Unknown Rx Ondansetron [Zofran Odt] 4 mg PO Q8HR PRN #12 tab.rapdis 10/03/19 Unknown Rx traMADoL [Ultram 50 MG tab] 50 mg PO Q6HR PRN #7 tablet 10/03/19 Unknown Rx Allergies Allergy/AdvReac Type Severity Reaction Status Date / Time No Known Allergies Allergy Verified 05/29/19 12:32 ED Review of Systems ROS: Stated complaint: VOMIT/ABD PAIN Other details as noted in HPI Comment: All other systems reviewed and negative ED Past Medical Hx - Past Medical History Previous Medical History?: Yes Hx HIV: Yes Additional medical history: Infectious disease process (CD4 WNL Winter 2018) - Surgical History Past Surgical History?: Yes Hx Cholecystectomy: Yes - Social History Smoking Status: Never Smoker Substance Use Type: None - Medications Home Medications: Home Medications Medication Instructions Recorded Confirmed Last Taken Type Ketorolac [Toradol] 10 mg PO Q6H PRN #15 tablet 04/12/19 Unknown Rx methOCARBAMOL [Robaxin] 750 mg PO Q8H PRN #21 tablet 04/12/19 Unknown Rx Benzonatate [Tessalon Perles] 100 mg PO Q8HR #30 capsule 05/07/19 Unknown Rx HYDROcodone/APAP 5-325 [[place] 1 - 2 each PO Q6HR PRN #14 tablet 05/07/19 Unknown Rx 5/325] Ibuprofen [Motrin 800 MG tab] 800 mg PO Q8HR PRN #20 tablet 05/07/19 Unknown Rx Acetaminophen/Codeine [Tylenol 1 tab PO Q6H PRN #12 tab 05/27/19 Unknown Rx /Codeine # 3 tab] Sulfamethoxazole/Trimethoprim 1 each PO BID #14 tablet 05/27/19 Unknown Rx [Bactrim DS TAB] Albuterol INH(or & Nicu Only) 2 puff IH QID PRN #8.5 gram 07/29/19 Unknown Rx [ProAir HFA Inhaler] Benzonatate [Tessalon Perles] 100 mg PO Q8HR PRN #30 capsule 07/29/19 Unknown Rx methylPREDNISolone [Medrol 4MG 4 mg PO DAILY #1 tab.ds.pk 07/29/19 Unknown Rx DOSEPAK (21 tabs)] Famotidine [Pepcid] 40 mg PO QHS #14 tablet 10/03/19 Unknown Rx Ondansetron [Zofran Odt] 4 mg PO Q8HR PRN #12 tab.rapdis 10/03/19 Unknown Rx traMADoL [Ultram 50 MG tab] 50 mg PO Q6HR PRN #7 tablet 10/03/19 Unknown Rx ED Physical Exam - General Limitations: No Limitations General appearance: alert, in no apparent distress - Head Head exam: Present: atraumatic, normocephalic - Eye Eye exam: Present: normal appearance - ENT ENT exam: Present: mucous membranes moist - Respiratory Respiratory exam: Present: normal lung sounds bilaterally. Absent: respiratory distress, wheezes, rales, rhonchi, stridor, chest wall tenderness, accessory muscle use, decreased breath sounds, prolonged expiratory - Cardiovascular Cardiovascular Exam: Present: regular rate, normal rhythm, normal heart sounds. Absent: systolic murmur, diastolic murmur, rubs, gallop - GI/Abdominal GI/Abdominal exam: Present: soft, distended, tenderness (mild upper), normal bowel sounds. Absent: guarding, rebound, rigid - Neurological Exam Neurological exam: Present: alert, oriented X3 - Psychiatric Psychiatric exam: Present: normal affect, normal mood - Skin Skin exam: Present: warm, dry, intact ED Course Vital Signs 10/03/19 10/03/19 13:45 17:14 Temperature 97.7 F Pulse Rate 67 74 Respiratory 18 18 Rate Blood Pressure 143/100 Blood Pressure 112/71 [Right] O2 Sat by Pulse 97 98 Oximetry ED Medical Decision Making - Lab Data Result diagrams: 10/03/19 14:01 10/03/19 14:01 Lab Results 10/03/19 10/03/19 10/03/19 Range/Units 14:01 14:01 14:04 WBC 10.1 (4.5-11.0) K/mm3 RBC 4.84 (3.65-5.03) M/mm3 Hgb 15.9 H (11.8-15.2) gm/dl Hct 45.9 H (35.5-45.6) % MCV 95 H (84-94) fl MCH 33 H (28-32) pg MCHC 35 H (32-34) % RDW 13.2 (13.2-15.2) % Plt Count 324 (140-440) K/mm3 Lymph % (Auto) 15.5 (13.4-35.0) % [place] % (Auto) 5.9 (0.0-7.3) % Eos % (Auto) 0.0 (0.0-4.3) % Baso % (Auto) 0.1 (0.0-1.8) % Lymph # 1.6 (1.2-5.4) K/mm3 [place] # 0.6 (0.0-0.8) K/mm3 Eos # 0.0 (0.0-0.4) K/mm3 Baso # 0.0 (0.0-0.1) K/mm3 Seg Neutrophils % 78.5 H (40.0-70.0) % Seg Neutrophils # 7.9 H (1.8-7.7) K/mm3 Sodium 142 (137-145) mmol/L Potassium 4.4 (3.6-5.0) mmol/L Chloride 102.2 (98-107) mmol/L Carbon Dioxide 27 (22-30) mmol/L Anion Gap 17 mmol/L BUN 11 (9-20) mg/dL Creatinine 1.0 (0.8-1.5) mg/dL Estimated GFR > 60 ml/min BUN/Creatinine Ratio 11 % Glucose 126 H (75-100) mg/dL Calcium 9.9 (8.4-10.2) mg/dL Total Bilirubin 0.90 (0.1-1.2) mg/dL AST 21 (5-40) units/L ALT 20 (7-56) units/L Alkaline Phosphatase 101 (35-129) units/L Total Protein 8.7 H (6.3-8.2) g/dL Albumin 4.5 (3.9-5) g/dL Albumin/Globulin Ratio 1.1 % Lipase 34 (13-60) units/L Urine Color (Yellow) Urine Turbidity (Clear) Urine pH (5.0-7.0) Ur Specific [place] (1.003-1.030) Urine Protein (Negative) mg/dL Urine Glucose (UA) (Negative) mg/dL Urine Ketones (Negative) mg/dL Urine Blood (Negative) Urine Nitrite (Negative) Urine Bilirubin (Negative) Urine Urobilinogen (<2.0) mg/dL Ur Leukocyte Esterase (Negative) Urine WBC (Auto) (0.0-6.0) /HPF Urine RBC (Auto) (0.0-6.0) /HPF Urine Mucus /HPF 10/03/19 Range/Units 16:34 WBC (4.5-11.0) K/mm3 RBC (3.65-5.03) M/mm3 Hgb (11.8-15.2) gm/dl Hct (35.5-45.6) % MCV (84-94) fl MCH (28-32) pg MCHC (32-34) % RDW (13.2-15.2) % Plt Count (140-440) K/mm3 Lymph % (Auto) (13.4-35.0) % [place] % (Auto) (0.0-7.3) % Eos % (Auto) (0.0-4.3) % Baso % (Auto) (0.0-1.8) % Lymph # (1.2-5.4) K/mm3 [place] # (0.0-0.8) K/mm3 Eos # (0.0-0.4) K/mm3 Baso # (0.0-0.1) K/mm3 Seg Neutrophils % (40.0-70.0) % Seg Neutrophils # (1.8-7.7) K/mm3 Sodium (137-145) mmol/L Potassium (3.6-5.0) mmol/L Chloride (98-107) mmol/L Carbon Dioxide (22-30) mmol/L Anion Gap mmol/L BUN (9-20) mg/dL Creatinine (0.8-1.5) mg/dL Estimated GFR ml/min BUN/Creatinine Ratio % Glucose (75-100) mg/dL Calcium (8.4-10.2) mg/dL Total Bilirubin (0.1-1.2) mg/dL AST (5-40) units/L ALT (7-56) units/L Alkaline Phosphatase (35-129) units/L Total Protein (6.3-8.2) g/dL Albumin (3.9-5) g/dL Albumin/Globulin Ratio % Lipase (13-60) units/L Urine Color Yellow (Yellow) Urine Turbidity Clear (Clear) Urine pH 6.0 (5.0-7.0) Ur Specific [place] 1.057 H (1.003-1.030) Urine Protein <15 mg/dl (Negative) mg/dL Urine Glucose (UA) Neg (Negative) mg/dL Urine Ketones Neg (Negative) mg/dL Urine Blood Neg (Negative) Urine Nitrite Neg (Negative) Urine Bilirubin Neg (Negative) Urine Urobilinogen 2.0 (<2.0) mg/dL Ur Leukocyte Esterase Neg (Negative) Urine WBC (Auto) < 1.0 (0.0-6.0) /HPF Urine RBC (Auto) 2.0 (0.0-6.0) /HPF Urine Mucus Few /HPF - Radiology Data Radiology results: report reviewed CT ABDOMEN AND PELVIS WITH CONTRAST INDICATION: Upper abdominal pain, nausea with vomiting, abdominal distention. COMPARISON: No relevant prior imaging study available. TECHNIQUE: Axial, coronal and sagittal CT imaging of the abdomen and pelvis was performed after injection of 100 cc Omnipaque [address] scans at this location are performed using CT dose reduction for ALARA by means of automated exposure control. FINDINGS: LOWER CHEST: No significant abnormality. LIVER: No significant abnormality. BILIARY: Prior cholecystectomy. No biliary ductal dilatation. PANCREAS: No significant abnormality. SPLEEN: No significant abnormality. ADRENALS: No significant abnormality. KIDNEYS AND URETERS: No significant abnormality. GI TRACT: No significant abnormality of the stomach, small bowel or colon. Unremarkable appendix. PERITONEUM: No free fluid. No free air. No fluid collection. LYMPH NODES: No significant adenopathy. VASCULATURE: No significant abnormality. URINARY BLADDER: No significant abnormality. REPRODUCTIVE ORGANS: No significant abnormality. ADDITIONAL FINDINGS: None. SKELETAL SYSTEM: No significant abnormality. IMPRESSION: No acute abnormality of the abdomen or pelvis. Signer Name: Yaron Galindo MD Signed: 10/03/2019 4:22 PM Workstation Name: [id number] Transcribed By: KNEDALL Dictated By: Yaron Galindo MD Electronically Authenticated By: Yaron Galindo MD Signed Date/Time: 10/03/191621 DD/ TD/TT: - Medical Decision Making Patient is a 29-year-old male who presents emergency room with complaints of upper abdominal pain that began around 3 AM this morning. He has associated nausea and vomiting. He states that his abdomen feels distended. He states he had a normal bowel movement yesterday. He denies any diarrhea, fever, recent travel, hematemesis, hematochezia, melena. Patient states that he was drinking alcohol approximately 3 days ago. He has a past medical history of HIV and is on his antivirals, he states his CD4 count is normal. He denies any allergies to medications. He has a history of a cholecystectomy. Initial vitals with mildly elevated blood pressure which improved to normal upon repeat. On exam patient has generalized upper abdominal tenderness to palpation, no guarding, no rebound, no rigidity, normal bowel sounds. Labs are stable. UA is normal. CT abdomen pelvis with IV contrast: No acute abnormality of the abdomen or pelvis. Patient given pain medications, IV fluids, Zofran, Protonix and symptom improved and he was feeling better. Patient given prescription for Pepcid, Zofran, tramadol. Advised patient Please take medication as prescribed. Increase your fluid intake over the next several days. Please start with a liquid diet and then slowly advance your diet as tolerated. Avoid anything sugary or greasy. Follow-up with a GI doctor. Follow-up with your primary care doctor. Return to the emergency room for any new or worsening symptoms. - Differential Diagnosis Pancreatitis, cholelithiasis, cholecystitis, GERD, PUD, gastritis Critical care attestation.: If time is entered above; I have spent that time in minutes in the direct care of this critically ill patient, excluding procedure time. ED Disposition Clinical Impression: Abdominal pain Qualifiers: Abdominal location: upper abdomen, unspecified Qualified Code(s): R10.10 - Upper abdominal pain, unspecified Nausea & vomiting Qualifiers: Vomiting type: unspecified Vomiting Intractability: non-intractable Qualified Code(s): R11.2 - Nausea with vomiting, unspecified Disposition: DC-01 TO HOME OR SELFCARE Is pt being admited?: No Does the pt Need Aspirin: No Condition: Stable Instructions: Acute Nausea and Vomiting (ED), Acute Abdominal Pain (ED) Additional Instructions: Please take medication as prescribed. Increase your fluid intake over the next several days. Please start with a liquid diet and then slowly advance your diet as tolerated. Avoid anything sugary or greasy. Follow-up with a GI doctor. Follow-up with your primary care doctor. Return to the emergency room for any new or worsening symptoms. Prescriptions: Famotidine [Pepcid] 40 mg PO QHS #14 tablet traMADoL [Ultram 50 MG tab] 50 mg PO Q6HR PRN #7 tablet PRN Reason: Pain , Severe (7-10) Ondansetron [Zofran Odt] 4 mg PO Q8HR PRN #12 tab.rapdis PRN Reason: Nausea And Vomiting Referrals: MING GREENFIELD MD [Primary Care Provider] - 3-5 Days [facility] [Provider Group] - 3-5 Days Forms: Work/School Release Form(ED) Time of Disposition: 17:44 Print Language: MALTESE
--- NOTE | 2019-10-03 16:26 | Cat Scan Report ---
CT ABDOMEN AND PELVIS WITH CONTRAST INDICATION: Upper abdominal pain, nausea with vomiting, abdominal distention. COMPARISON: No relevant prior imaging study available. TECHNIQUE: Axial, coronal and sagittal CT imaging of the abdomen and pelvis was performed after inje ction of 100 cc Omnipaque [address] scans at this location are performed using CT dose re duction for ALARA by means of automated exposure control. FINDINGS: LOWER CHEST: No significant abnormality. LIVER: No significant abnormality. BILIARY: Prior cholecystectomy. No biliary ductal dilatation. PANCREAS: No significant abnormality. SPLEEN: No significant abnormality. ADRENALS: No significant abnormality. KIDNEYS AND URETERS: No significant abnormality. GI TRACT: No significant abnormality of the stomach, small bowel or colon. Unremarkable appendix. PERITONEUM: No free fluid. No free air. No fluid collection. LYMPH NODES: No significant adenopathy. VASCULATURE: No significant abnormality. URINARY BLADDER: No significant abnormality. REPRODUCTIVE ORGANS: No significant abnormality. ADDITIONAL FINDINGS: None. SKELETAL SYSTEM: No significant abnormality. IMPRESSION: No acute abnormality of the abdomen or pelvis. Signer Name: Yaron Galindo MD Signed: 10/03/2019 4:22 PM Workstation Name: [id number]
[2019-10-03] MEDS ORDERED: HYDROmorphone 1 MG/1 ML INJ IV ONE (16:43)
[2019-10-03 17:00] LABS: Bilirubin,Urine NEG (Negative); Blood,Urine NEG (Negative); Color,Urine Yellow (Yellow); Mucus,Urine FEW /HPF; Protein,Urine <15 mg/dL mg/dL (Negative); WBC,Urine < 1.0 /HPF (0.0-6.0)
[2019-10-03 17:15] VITALS: BP 112/71
== END 2019-10-03 18:25 | disposition home or self-care (01) ==
LOC: ED 13:42
DX: R10.10 Upper abdominal pain, unspecified (principal); R11.2 Nausea with vomiting, unspecified
CPT/HCPCS: 36415; 74177; 80053; 81001; 83690; 85025; 96361; 96374; 96375; 99284; C9113; J1170; J2270; J2405; J7030; Q9967

== ENCOUNTER 2020-04-17 03:12 | Inpatient (IN) | payer BC ==
[2020-04-17 04:13] LABS: Basophils % (Auto) 0.2 % (0.0-1.8); Eosinophils # (Auto) 0.1 K/mm3 (0.0-0.4); Eosinophils % (Auto) 0.7 % (0.0-4.3); Hematocrit 43.1 % (35.5-45.6); Hemoglobin 15.1 gm/dl (11.8-15.2); Lymphocytes # (Auto) 1.6 K/mm3 (1.2-5.4); Lymphocytes % (Auto) 16.2 % (13.4-35.0); Mean Corpuscular HGB Conc 35 % (32-34); Mean Corpuscular Volume 94 fl (84-94); Monocytes # (Auto) 1.1 K/mm3 (0.0-0.8); Monocytes % (Auto) 11.6 % (0.0-7.3); Platelet Count 311 K/mm3 (140-440); Red Cell Distribution Width 13.4 % (13.2-15.2)
[2020-04-17 04:18] LABS: Bacteria,Urine 1+ /HPF (Negative); Bilirubin,Urine NEG (Negative); Blood,Urine NEG (Negative); Color,Urine Yellow (Yellow); Mucus,Urine FEW /HPF; Protein,Urine <15 mg/dL mg/dL (Negative)
[2020-04-17 04:19] LABS: Alanine Aminotransferase 21 units/L (7-56); Albumin 4.6 g/dL (3.9-5); BUN/Creatinine Ratio 8; Blood Urea Nitrogen 7 mg/dL (9-20); Calcium 9.7 mg/dL (8.4-10.2); Hemolysis Index 8
[2020-04-17] MEDS ORDERED: MORPHINE 4 MG/1 ML INJ IV ONE (04:57)
[2020-04-17] MEDS ORDERED: ONDANSETRON 4 MG/2 ML INJ IV ONE ×2 (04:57→06:34)
[2020-04-17] MEDS ORDERED: SODIUM CHLORIDE 0.9% 1000 ML 1,000 ML IV ONE ×2 (04:57→06:36)
[2020-04-17] MEDS ORDERED: FAMOTIDINE 20 MG/2 ML INJ IV ONE (04:57)
--- NOTE | 2020-04-17 04:59 | Event Note ---
Date: 04/17/20 The patient was evaluated in the emergency department for symptoms described in the history of present illness. He/she was evaluated in the context of the global COVID-19 pandemic, which necessitated consideration that the patient might be at risk for infection with the virus that causes COVID-19. Institutional protocols and algorithms that pertain to the evaluation of patients at risk for COVID-19 are in a state of rapid change based on information released by regulatory bodies including the CDC and federal and state organizations. These policies and algorithms were followed during the patient's care in the emergency department. Please note that these policies, procedures and recommendations changed on a rapid basis. Medical screening examination: 29-year-old gentleman presenting with epigastric pain, right upper quadrant pain, right lower quadrant pain. He reports that he was seen at the beginning of the month at [facility] for similar symptoms, had a CT scan of the abdomen pelvis, which may have suggested a hiatal hernia. Denies fever, has epigastric tenderness, minimal right lower quadrant tenderness to deep palpation. He denies testicular pain. Check basic laboratory studies, EKG, urinalysis, treat symptoms, reassess. Had a CT scan of the abdomen pelvis September 2019 at this facility, which was essentially negative for acute findings. He also reports having had a CAT scan of the beginning of the month, which he believes is indicated for acute findings, with the exception of hiatal hernia. He does not consume marijuana. Denies fever, loss of taste, loss of smell, and exposure to Covid individuals. Vital Signs 04/17/20 03:15 Temperature 98.5 F Pulse Rate 90 Respiratory 16 Rate Blood Pressure 129/84 O2 Sat by Pulse 94 Oximetry Lab Results 04/17/20 04/17/20 04/17/20 Range/Units 03:25 03:25 03:31 WBC 9.7 (4.5-11.0) K/mm3 RBC 4.60 (3.65-5.03) M/mm3 Hgb 15.1 (11.8-15.2) gm/dl Hct 43.1 (35.5-45.6) % MCV 94 (84-94) fl MCH 33 H (28-32) pg MCHC 35 H (32-34) % RDW 13.4 (13.2-15.2) % Plt Count 311 (140-440) K/mm3 Lymph % (Auto) 16.2 (13.4-35.0) % [place] % (Auto) 11.6 H (0.0-7.3) % Eos % (Auto) 0.7 (0.0-4.3) % Baso % (Auto) 0.2 (0.0-1.8) % Lymph # (Auto) 1.6 (1.2-5.4) K/mm3 [place] # (Auto) 1.1 H (0.0-0.8) K/mm3 Eos # (Auto) 0.1 (0.0-0.4) K/mm3 Baso # (Auto) 0.0 (0.0-0.1) K/mm3 Seg Neutrophils % 71.3 H (40.0-70.0) % Seg Neutrophils # 6.9 (1.8-7.7) K/mm3 Sodium 141 (137-145) mmol/L Potassium 4.2 (3.6-5.0) mmol/L Chloride 100.2 (98-107) mmol/L Carbon Dioxide 28 (22-30) mmol/L Anion Gap 17 mmol/L BUN 7 L (9-20) mg/dL Creatinine 0.9 (0.8-1.3) mg/dL Estimated GFR > 60 ml/min BUN/Creatinine Ratio 8 % Glucose 105 H (75-100) mg/dL Calcium 9.7 (8.4-10.2) mg/dL Total Bilirubin 0.80 (0.1-1.2) mg/dL AST 23 (5-40) units/L ALT 21 (7-56) units/L Alkaline Phosphatase 125 (35-129) units/L Total Protein 8.0 (6.3-8.2) g/dL Albumin 4.6 (3.9-5) g/dL Albumin/Globulin Ratio 1.4 % Urine Color Yellow (Yellow) Urine Turbidity Clear (Clear) Urine pH 6.0 (5.0-7.0) Ur Specific [place] 1.020 (1.003-1.030) Urine Protein <15 mg/dl (Negative) mg/dL Urine Glucose (UA) Neg (Negative) mg/dL Urine Ketones Neg (Negative) mg/dL Urine Blood Neg (Negative) Urine Nitrite Neg (Negative) Urine Bilirubin Neg (Negative) Urine Urobilinogen 4.0 (<2.0) mg/dL Ur Leukocyte Esterase Neg (Negative) Urine WBC (Auto) 1.0 (0.0-6.0) /HPF Urine RBC (Auto) 1.0 (0.0-6.0) /HPF Urine Bacteria (Auto) 1+ (Negative) /HPF Urine Mucus Few /HPF
--- NOTE | 2020-04-17 07:03 | Emergency Department Report ---
ED Abdominal Pain HPI - General Chief Complaint: Abdominal Pain Stated Complaint: STOMACH PAIN Time Seen by Provider: 04/17/20 06:16 Source: patient Mode of arrival: Ambulatory Limitations: No Limitations - History of Present Illness Initial Comments: This is a 29-year old male with a history of HIV. He states he is compliant with his medication and therefore does not have to follow-up. He has no current infectious disease clinic. He admits that he has had abdominal pain for "a long time". The record indicates that he was here in September 2019 for abdominal pain and had a negative CT of the abdomen and pelvis. He went to [place] about a week ago and had a CT scan that showed a "hernia". The previous physician indicated to me that it was a "hiatal hernia". However I do not have the report and have not entirely sure of what the hernia was. The patient tells me that he was given oxycodone and told to take Pepcid [id number]. I did a [employer] report on this patient; he does not seem to have a pattern of opioid overuse. The patient's pain is described as upper quadrants of the abdomen and in the right lower quadrant. It is dull and intermittent. He states he vomited once last night and wants upon arrival here. He states the fluid was yellow. He has had no real change in his bowel movement which he describes as loose and twice a day. He has had no signs of GI bleeding. He thinks he has had chills and perhaps fever but did not mention his temperature. The patient does describe his abdomen has been distended. Patient has never had a colonoscopy nor endoscopy nor has he been seen by a tar distillation supervisor. The patient states after his lap Ghislaine, they "left a piece of the gallbladder in". MD Complaint: abdominal pain -: month(s) Location: LUQ, RUQ, RLQ Radiation: none Migration to: no migration Severity: moderate Quality: aching Consistency: intermittent (Without pain complaint during my encounter) Improves With: nothing Worsens With: nothing Context: other (HIV positive) Associated Symptoms: nausea, vomiting - Related Data Previous Rx's Medication Instructions Recorded Last Taken Type Ketorolac [Toradol] 10 mg PO Q6H PRN #15 tablet 04/12/19 Unknown Rx methOCARBAMOL [Robaxin] 750 mg PO Q8H PRN #21 tablet 04/12/19 Unknown Rx Benzonatate [Tessalon Perles] 100 mg PO Q8HR #30 capsule 05/07/19 Unknown Rx HYDROcodone/APAP 5-325 [[place] 1 - 2 each PO Q6HR PRN #14 tablet 05/07/19 Unknown Rx 5/325] Ibuprofen [Motrin 800 MG tab] 800 mg PO Q8HR PRN #20 tablet 05/07/19 Unknown Rx Acetaminophen/Codeine [Tylenol 1 tab PO Q6H PRN #12 tab 05/27/19 Unknown Rx /Codeine # 3 tab] Sulfamethoxazole/Trimethoprim 1 each PO BID #14 tablet 05/27/19 Unknown Rx [Bactrim DS TAB] Albuterol Mdi (or & Nicu Only) 2 puff IH QID PRN #8.5 gram 07/29/19 Unknown Rx [ProAir HFA Inhaler] Benzonatate [Tessalon Perles] 100 mg PO Q8HR PRN #30 capsule 07/29/19 Unknown Rx methylPREDNISolone [Medrol 4MG 4 mg PO DAILY #1 tab.ds.pk 07/29/19 Unknown Rx DOSEPAK (21 tabs)] Famotidine [Pepcid] 40 mg PO QHS #14 tablet 10/03/19 Unknown Rx Ondansetron [Zofran Odt] 4 mg PO Q8HR PRN #12 tab.rapdis 10/03/19 Unknown Rx traMADoL [Ultram 50 MG tab] 50 mg PO Q6HR PRN #7 tablet 10/03/19 Unknown Rx Allergies Allergy/AdvReac Type Severity Reaction Status Date / Time No Known Allergies Allergy Verified 05/29/19 12:32 ED Review of Systems ROS: Stated complaint: STOMACH PAIN Other details as noted in HPI Constitutional: chills, fever (Subjective) Eyes: denies: eye pain, eye discharge, vision change ENT: denies: ear pain, throat pain Respiratory: denies: cough, shortness of breath Cardiovascular: denies: chest pain, palpitations Endocrine: no symptoms reported Gastrointestinal: abdominal pain, nausea, vomiting. denies: diarrhea (Chronic loose stool) Genitourinary: denies: urgency, dysuria Musculoskeletal: denies: back pain, joint swelling, arthralgia Skin: denies: rash, lesions Neurological: denies: headache, weakness, paresthesias Psychiatric: denies: anxiety, depression Hematological/Lymphatic: denies: easy bleeding, easy bruising ED Past Medical Hx - Past Medical History Previous Medical History?: Yes Hx HIV: Yes Additional medical history: Infectious disease process (CD4 WNL Winter 2018) - Surgical History Past Surgical History?: Yes Hx Cholecystectomy: Yes - Social History Smoking Status: Current Every Day Smoker Substance Use Type: None - Medications Home Medications: Home Medications Medication Instructions Recorded Confirmed Last Taken Type Ketorolac [Toradol] 10 mg PO Q6H PRN #15 tablet 04/12/19 Unknown Rx methOCARBAMOL [Robaxin] 750 mg PO Q8H PRN #21 tablet 04/12/19 Unknown Rx Benzonatate [Tessalon Perles] 100 mg PO Q8HR #30 capsule 05/07/19 Unknown Rx HYDROcodone/APAP 5-325 [[place] 1 - 2 each PO Q6HR PRN #14 tablet 05/07/19 Unknown Rx 5/325] Ibuprofen [Motrin 800 MG tab] 800 mg PO Q8HR PRN #20 tablet 05/07/19 Unknown Rx Acetaminophen/Codeine [Tylenol 1 tab PO Q6H PRN #12 tab 05/27/19 Unknown Rx /Codeine # 3 tab] Sulfamethoxazole/Trimethoprim 1 each PO BID #14 tablet 05/27/19 Unknown Rx [Bactrim DS TAB] Albuterol Mdi (or & Nicu Only) 2 puff IH QID PRN #8.5 gram 07/29/19 Unknown Rx [ProAir HFA Inhaler] Benzonatate [Tessalon Perles] 100 mg PO Q8HR PRN #30 capsule 07/29/19 Unknown Rx methylPREDNISolone [Medrol 4MG 4 mg PO DAILY #1 tab.ds.pk 07/29/19 Unknown Rx DOSEPAK (21 tabs)] Famotidine [Pepcid] 40 mg PO QHS #14 tablet 10/03/19 Unknown Rx Ondansetron [Zofran Odt] 4 mg PO Q8HR PRN #12 tab.rapdis 10/03/19 Unknown Rx traMADoL [Ultram 50 MG tab] 50 mg PO Q6HR PRN #7 tablet 10/03/19 Unknown Rx ED Physical Exam - General Limitations: No Limitations General appearance: alert, in no apparent distress - Head Head exam: Present: atraumatic, normocephalic - Eye Eye exam: Present: normal appearance. Absent: scleral icterus - ENT ENT exam: Present: mucous membranes moist - Neck Neck exam: Present: normal inspection - Respiratory Respiratory exam: Present: normal lung sounds bilaterally. Absent: respiratory distress - Cardiovascular Cardiovascular Exam: Present: regular rate, normal rhythm. Absent: systolic murmur, diastolic murmur, rubs, gallop - GI/Abdominal GI/Abdominal exam: Present: soft, distended. Absent: tenderness, guarding, rebound, rigid, normal bowel sounds (I thought the bowel sounds were increased), organomegaly, mass, bruit, pulsatile mass - Rectal Rectal exam: Present: deferred - Extremities Exam Extremities exam: Present: normal inspection - Back Exam Back exam: Present: normal inspection - Neurological Exam Neurological exam: Present: alert, oriented X3, CN II-XII intact. Absent: motor sensory deficit - Psychiatric Psychiatric exam: Present: normal affect, normal mood - Skin Skin exam: Present: warm, dry, intact, normal color. Absent: rash ED Course Vital Signs 04/17/20 04/17/20 04/17/20 03:15 06:28 07:53 Temperature 98.5 F Pulse Rate 90 64 Respiratory 16 18 Rate Blood Pressure 129/84 Blood Pressure 127/85 [Left] O2 Sat by Pulse 94 Oximetry - Reevaluation(s) Reevaluation #1: Patient's labs are reassuring. However he does seem to have increased bowel sounds and abdominal distention. As such I have ordered a CT scan. The patient has been educated that required CTs are to be avoided. However with these positive findings and comorbidity like HIV with previous cholecystectomy, I did recommend we proceed with a double contrast scan. 04/17/20 07:10 04/17/20 12:47 Patient states that he still has pain that he is unable to eat. He will be admitted for further care and evaluation by the hospitalist service. ED Medical Decision Making - Lab Data Result diagrams: 04/17/20 03:25 04/17/20 03:25 Laboratory Results - last 24 hr 04/17/20 04/17/20 04/17/20 03:25 03:25 03:31 WBC 9.7 RBC 4.60 Hgb 15.1 Hct 43.1 MCV 94 MCH 33 H MCHC 35 H RDW 13.4 Plt Count 311 Lymph % (Auto) 16.2 [place] % (Auto) 11.6 H Eos % (Auto) 0.7 Baso % (Auto) 0.2 Lymph # (Auto) 1.6 [place] # (Auto) 1.1 H Eos # (Auto) 0.1 Baso # (Auto) 0.0 Seg Neutrophils % 71.3 H Seg Neutrophils # 6.9 Sodium 141 Potassium 4.2 Chloride 100.2 Carbon Dioxide 28 Anion Gap 17 BUN 7 L Creatinine 0.9 Estimated GFR > 60 BUN/Creatinine Ratio 8 Glucose 105 H Calcium 9.7 Total Bilirubin 0.80 AST 23 ALT 21 Alkaline Phosphatase 125 Total Protein 8.0 Albumin 4.6 Albumin/Globulin Ratio 1.4 Lipase Urine Color Yellow Urine Turbidity Clear Urine pH 6.0 Ur Specific [place] 1.020 Urine Protein <15 mg/dl Urine Glucose (UA) Neg Urine Ketones Neg Urine Blood Neg Urine Nitrite Neg Urine Bilirubin Neg Urine Urobilinogen 4.0 Ur Leukocyte Esterase Neg Urine WBC (Auto) 1.0 Urine RBC (Auto) 1.0 Urine Bacteria (Auto) 1+ Urine Mucus Few 04/17/20 05:21 WBC RBC Hgb Hct MCV MCH MCHC RDW Plt Count Lymph % (Auto) [place] % (Auto) Eos % (Auto) Baso % (Auto) Lymph # (Auto) [place] # (Auto) Eos # (Auto) Baso # (Auto) Seg Neutrophils % Seg Neutrophils # Sodium Potassium Chloride Carbon Dioxide Anion Gap BUN Creatinine Estimated GFR BUN/Creatinine Ratio Glucose Calcium Total Bilirubin AST ALT Alkaline Phosphatase Total Protein Albumin Albumin/Globulin Ratio Lipase 33 Urine Color Urine Turbidity Urine pH Ur Specific [place] Urine Protein Urine Glucose (UA) Urine Ketones Urine Blood Urine Nitrite Urine Bilirubin Urine Urobilinogen Ur Leukocyte Esterase Urine WBC (Auto) Urine RBC (Auto) Urine Bacteria (Auto) Urine Mucus - EKG Data -: EKG Interpreted by Me EKG shows normal: sinus rhythm, axis, intervals, QRS complexes, ST-T waves Rate: normal - EKG Data Interpretation: no acute changes, nonspecific ST-T wave [place] - Radiology Data Radiology results: report reviewed CT shows cystic area in the area of the gallbladder with a surgical clip there. There are 2 stones seen in the neck. Ultrasound essentially revealed the same findings. Critical care attestation.: If time is entered above; I have spent that time in minutes in the direct care of this critically ill patient, excluding procedure time. ED Disposition Clinical Impression: Biliary colic, Intractable pain, Unable to eat Cholelithiasis Qualifiers: Cholelithiasis location: gallbladder Cholecystitis presence: with cholecystitis Cholecystitis acuity: acute and chronic Biliary obstruction: without biliary obstruction Qualified Code(s): K80.12 - Calculus of gallbladder with acute and chronic cholecystitis without obstruction Disposition: OP ADMIT IP TO THIS HOSP Is pt being admited?: Yes Does the pt Need Aspirin: No Condition: Stable Referrals: PRIMARY CARE, [Primary Care Provider] - 3-5 Days Time of Disposition: 12:49
[2020-04-17] MEDS ORDERED: MORPHINE 2 MG/1 ML INJ IV ONE ×2 (07:40→11:29)
[2020-04-17] MEDS ORDERED: MORPHINE 2 MG/1 ML INJ ONE (11:29)
--- NOTE | 2020-04-17 12:24 | Cat Scan Report ---
CT ABDOMEN AND PELVIS WITH CONTRAST INDICATION / CLINICAL INFORMATION: Epigastric and right lower quadrant pain. TECHNIQUE: Axial CT images were obtained through the abdomen and pelvis after IV contrast. All CT sc ans at this location are performed using CT dose reduction for ALARA by means of automated exposure c ontrol. COMPARISON: 10/03/2019. FINDINGS: LOWER CHEST: Unremarkable LIVER: Unremarkable GALLBLADDER/BILIARY TREE: Multiple surgical clips are present in the gallbladder fossa. Tubular fluid density structure within the gallbladder fossa presumably reflects a partially decompressed gallblad kathleen. There is no significant wall thickening. There are 2 calcified gallstones in the region of the g allbladder neck. No common bile duct dilatation. This area appears stable with prior study. PANCREAS: Unremarkable SPLEEN: Unremarkable ADRENALS: Unremarkable KIDNEYS / URETER: Unremarkable URINARY BLADDER: Bladder is partially decompressed, though grossly unremarkable. REPRODUCTIVE ORGANS: Unremarkable STOMACH / SMALL BOWEL: Stomach and small bowel are normal in caliber. No evidence of bowel inflammati on. COLON: Colon is unremarkable. The appendix is normal in caliber. LYMPH NODES: No significant adenopathy. VASCULATURE: No significant abnormality. OTHER: No free air, free fluid, or focal fluid collection is identified. SKELETAL SYSTEM: No acute osseous findings. IMPRESSION: No acute abnormality in the abdomen or pelvis. Other stable chronic and incidental findings, as above . Signer Name: Zaid Monroy MD Signed: 04/17/2020 9:20 AM Workstation Name: [id number]
--- NOTE | 2020-04-17 12:31 | Ultrasound Report ---
LIMITED RUQ ABDOMINAL ULTRASOUND INDICATION / CLINICAL INFORMATION: upper abd pain CT gallstone but "cholecystectomy". COMPARISON: CT from earlier today and from 10/03/2019. FINDINGS: PANCREAS: The pancreas is partially obscured by shadowing from overlying bowel gas, grossly unremarka ble. ABDOMINAL AORTA: No significant abnormality. IVC: No significant abnormality. LIVER: The liver measures 16.6 cm in length. The liver demonstrates increased echogenicity, compatib le with fatty infiltration. No focal hepatic lesion. Normal hepatopedal blood flow in the main portal vein. GALLBLADDER: The patient is reportedly status post cholecystectomy. There is a tubular cystic structu re within the gallbladder fossa, which may represent a patulous cystic duct. No significant wall thic kening. Calcifications at the base of the cystic duct seen on same-day CT are not visualized by ultra sound. BILE DUCTS: The common bile duct is normal as visualized. RIGHT KIDNEY: No significant abnormality visualized. FREE FLUID: None. ADDITIONAL FINDINGS: None. IMPRESSION: 1. Patient is status post cholecystectomy with residual tubular cystic structure, most likely represe nting a patulous cystic duct. Small calcifications at the base of the cystic duct are not well-visual ized by ultrasound, though most likely represent retained ductal stones. No common bile duct dilatati on. 2. Fatty infiltration of the liver. Signer Name: Zaid Monroy MD Signed: 04/17/2020 12:26 PM Workstation Name: [id number]
--- NOTE | 2020-04-17 16:37 | History and Physical Report ---
History of Present Illness Date of examination: 04/17/20 Date of admission: 04/17/20 12:50 Chief complaint: RUQ pain 1 day History of present illness: 29-year-old male with history of HIV, cholecystectomy in 2013 who presented to the emergency room with right upper quadrant abdominal pain. The patient states he has been having this pain for the last 2 weeks and originally presented to [place] [facility]. He underwent work-up and was told that he still had a portion of his gallbladder with stones. He was told that he may need a specialist to address this. Patient states the pain is in the right upper quadrant, intermittent and sharp. Nonradiating. It is not associated with any specific foods. He is having nausea and vomiting. No fevers or chills. He states he has been having intermittent pain once a year since his gallbladder was removed. Cholecystectomy was performed at [facility]. He is unsure of the details but feels that his current pain is similar to before his gallbladder was removed. - Past Medical History Previous Medical History?: Yes Hx HIV: Yes Additional medical history: Infectious disease process (CD4 WNL Winter 2018) - Surgical History Past Surgical History?: Yes Hx Cholecystectomy: Yes - Social History Smoking Status: Current Every Day Smoker Substance Use Type: None - Medications Home Medications: Home Medications Medication Instructions Recorded Confirmed Last Taken Type Ketorolac [Toradol] 10 mg PO Q6H PRN #15 tablet 04/12/19 Unknown Rx methOCARBAMOL [Robaxin] 750 mg PO Q8H PRN #21 tablet 04/12/19 Unknown Rx Benzonatate [Tessalon Perles] 100 mg PO Q8HR #30 capsule 05/07/19 Unknown Rx HYDROcodone/APAP 5-325 [[facility] 1 - 2 each PO Q6HR PRN #14 tablet 05/07/19 Unknown Rx 5/325] Ibuprofen [Motrin 800 MG tab] 800 mg PO Q8HR PRN #20 tablet 05/07/19 Unknown Rx Acetaminophen/Codeine [Tylenol 1 tab PO Q6H PRN #12 tab 05/27/19 Unknown Rx /Codeine # 3 tab] Sulfamethoxazole/Trimethoprim 1 each PO BID #14 tablet 05/27/19 Unknown Rx [Bactrim DS TAB] Albuterol Mdi (or & Nicu Only) 2 puff IH QID PRN #8.5 gram 07/29/19 Unknown Rx [ProAir HFA Inhaler] Benzonatate [Tessalon Perles] 100 mg PO Q8HR PRN #30 capsule 07/29/19 Unknown Rx methylPREDNISolone [Medrol 4MG 4 mg PO DAILY #1 tab.ds.pk 07/29/19 Unknown Rx DOSEPAK (21 tabs)] Famotidine [Pepcid] 40 mg PO QHS #14 tablet 10/03/19 Unknown Rx Ondansetron [Zofran Odt] 4 mg PO Q8HR PRN #12 tab.rapdis 10/03/19 Unknown Rx traMADoL [Ultram 50 MG tab] 50 mg PO Q6HR PRN #7 tablet 10/03/19 Unknown Rx Review of Systems ROS: Stated complaint: STOMACH PAIN Other details as noted in HPI Constitutional: chills, fever (Subjective) Eyes: denies: eye pain, eye discharge, vision change ENT: denies: ear pain, throat pain Respiratory: denies: cough, shortness of breath Cardiovascular: denies: chest pain, palpitations Endocrine: no symptoms reported Gastrointestinal: abdominal pain, nausea, vomiting. denies: diarrhea (Chronic loose stool) Genitourinary: denies: urgency, dysuria Musculoskeletal: denies: back pain, joint swelling, arthralgia Skin: denies: rash, lesions Neurological: denies: headache, weakness, paresthesias Psychiatric: denies: anxiety, depression Hematological/Lymphatic: denies: easy bleeding, easy bruising Medications and Allergies Allergies Allergy/AdvReac Type Severity Reaction Status Date / Time No Known Allergies Allergy Verified 05/29/19 12:32 Home Medications Medication Instructions Recorded Confirmed Last Taken Type Ketorolac [Toradol] 10 mg PO Q6H PRN #15 tablet 04/12/19 Unknown Rx methOCARBAMOL [Robaxin] 750 mg PO Q8H PRN #21 tablet 04/12/19 Unknown Rx Benzonatate [Tessalon Perles] 100 mg PO Q8HR #30 capsule 05/07/19 Unknown Rx HYDROcodone/APAP 5-325 [[facility] 1 - 2 each PO Q6HR PRN #14 tablet 05/07/19 Unknown Rx 5/325] Ibuprofen [Motrin 800 MG tab] 800 mg PO Q8HR PRN #20 tablet 05/07/19 Unknown Rx Acetaminophen/Codeine [Tylenol 1 tab PO Q6H PRN #12 tab 05/27/19 Unknown Rx /Codeine # 3 tab] Sulfamethoxazole/Trimethoprim 1 each PO BID #14 tablet 05/27/19 Unknown Rx [Bactrim DS TAB] Albuterol Mdi (or & Nicu Only) 2 puff IH QID PRN #8.5 gram 07/29/19 Unknown Rx [ProAir HFA Inhaler] Benzonatate [Tessalon Perles] 100 mg PO Q8HR PRN #30 capsule 07/29/19 Unknown Rx methylPREDNISolone [Medrol 4MG 4 mg PO DAILY #1 tab.ds.pk 07/29/19 Unknown Rx DOSEPAK (21 tabs)] Famotidine [Pepcid] 40 mg PO QHS #14 tablet 10/03/19 Unknown Rx Ondansetron [Zofran Odt] 4 mg PO Q8HR PRN #12 tab.rapdis 10/03/19 Unknown Rx traMADoL [Ultram 50 MG tab] 50 mg PO Q6HR PRN #7 tablet 10/03/19 Unknown Rx Exam - Constitutional Vitals: Temp Pulse Resp BP Pulse Ox 98.5 F 64 18 127/85 94 04/17/20 03:15 04/17/20 07:53 04/17/20 06:28 04/17/20 07:53 04/17/20 03:15 General appearance: Present: no acute distress, well-nourished - EENT Eyes: Present: PERRL ENT: hearing intact, clear oral mucosa - Neck Neck: Present: supple, normal ROM - Respiratory Respiratory effort: normal Respiratory: bilateral: CTA - Cardiovascular Heart rate: 78 Rhythm: regular Heart Sounds: Present: S1 & S2. Absent: rub, click - Extremities Extremities: pulses symmetrical, No edema Peripheral Pulses: within normal limits - Abdominal General gastrointestinal: Present: soft, tender, non-distended, normal bowel sounds Localized gastrointestinal: tender: RUQ, guarding: RUQ Male genitourinary: Present: normal - Integumentary Integumentary: Present: clear, warm, dry - Musculoskeletal Musculoskeletal: gait normal, strength equal bilaterally - Psychiatric Psychiatric: appropriate mood/affect, intact judgment & insight - Neurologic Neurologic: CNII-XII intact, moves all extremities - Allied Health Allied health notes reviewed: nursing, case management Results - Labs CBC & Chem 7: 04/18/20 05:51 04/18/20 05:51 Labs: Laboratory Last Values WBC 9.7 K/mm3 (4.5-11.0) 04/17/20 03:25 RBC 4.60 M/mm3 (3.65-5.03) 04/17/20 03:25 Hgb 15.1 gm/dl (11.8-15.2) 04/17/20 03:25 Hct 43.1 % (35.5-45.6) 04/17/20 03:25 MCV 94 fl (84-94) 04/17/20 03:25 MCH 33 pg (28-32) H 04/17/20 03:25 MCHC 35 % (32-34) H 04/17/20 03:25 RDW 13.4 % (13.2-15.2) 04/17/20 03:25 Plt Count 311 K/mm3 (140-440) 04/17/20 03:25 Lymph % (Auto) 16.2 % (13.4-35.0) 04/17/20 03:25 Ralls % (Auto) 11.6 % (0.0-7.3) H 04/17/20 03:25 Eos % (Auto) 0.7 % (0.0-4.3) 04/17/20 03:25 Baso % (Auto) 0.2 % (0.0-1.8) 04/17/20 03:25 Lymph # (Auto) 1.6 K/mm3 (1.2-5.4) 04/17/20 03:25 Ralls # (Auto) 1.1 K/mm3 (0.0-0.8) H 04/17/20 03:25 Eos # (Auto) 0.1 K/mm3 (0.0-0.4) 04/17/20 03:25 Baso # (Auto) 0.0 K/mm3 (0.0-0.1) 04/17/20 03:25 Seg Neutrophils % 71.3 % (40.0-70.0) H 04/17/20 03:25 Seg Neutrophils # 6.9 K/mm3 (1.8-7.7) 04/17/20 03:25 Sodium 141 mmol/L (137-145) 04/17/20 03:25 Potassium 4.2 mmol/L (3.6-5.0) 04/17/20 03:25 Chloride 100.2 mmol/L (98-107) 04/17/20 03:25 Carbon Dioxide 28 mmol/L (22-30) 04/17/20 03:25 Anion Gap 17 mmol/L 04/17/20 03:25 BUN 7 mg/dL (9-20) L 04/17/20 03:25 Creatinine 0.9 mg/dL (0.8-1.3) 04/17/20 03:25 Estimated GFR > 60 ml/min 04/17/20 03:25 BUN/Creatinine Ratio 8 % 04/17/20 03:25 Glucose 105 mg/dL (75-100) H 04/17/20 03:25 Calcium 9.7 mg/dL (8.4-10.2) 04/17/20 03:25 Total Bilirubin 0.80 mg/dL (0.1-1.2) 04/17/20 03:25 AST 23 units/L (5-40) 04/17/20 03:25 ALT 21 units/L (7-56) 04/17/20 03:25 Alkaline Phosphatase 125 units/L (35-129) 04/17/20 03:25 Total Protein 8.0 g/dL (6.3-8.2) 04/17/20 03:25 Albumin 4.6 g/dL (3.9-5) 04/17/20 03:25 Albumin/Globulin Ratio 1.4 % 04/17/20 03:25 Lipase 33 units/L (13-60) 04/17/20 05:21 Urine Color Yellow (Yellow) 04/17/20 03:31 Urine Turbidity Clear (Clear) 04/17/20 03:31 Urine pH 6.0 (5.0-7.0) 04/17/20 03:31 Ur Specific [place] 1.020 (1.003-1.030) 04/17/20 03:31 Urine Protein <15 mg/dl mg/dL (Negative) 04/17/20 03:31 Urine Glucose (UA) Neg mg/dL (Negative) 04/17/20 03:31 Urine Ketones Neg mg/dL (Negative) 04/17/20 03:31 Urine Blood Neg (Negative) 04/17/20 03:31 Urine Nitrite Neg (Negative) 04/17/20 03:31 Urine Bilirubin Neg (Negative) 04/17/20 03:31 Urine Urobilinogen 4.0 mg/dL (<2.0) 04/17/20 03:31 Ur Leukocyte Esterase Neg (Negative) 04/17/20 03:31 Urine WBC (Auto) 1.0 /HPF (0.0-6.0) 04/17/20 03:31 Urine RBC (Auto) 1.0 /HPF (0.0-6.0) 04/17/20 03:31 Urine Bacteria (Auto) 1+ /HPF (Negative) 04/17/20 03:31 Urine Mucus Few /HPF 04/17/20 03:31 Short CBC 04/18/20 Range/Units 05:51 WBC 6.2 (4.5-11.0) K/mm3 Hgb 12.4 (11.8-15.2) gm/dl Hct 37.1 D (35.5-45.6) % Plt Count 245 (140-440) K/mm3 BMP 04/18/20 05:51 Sodium 139 Potassium 4.2 Chloride 102.7 Carbon Dioxide 29 BUN 6 L Creatinine 0.7 L Glucose 83 Calcium 8.8 Liver Function 04/18/20 Range/Units 05:51 Total Bilirubin 0.80 (0.1-1.2) mg/dL AST 16 (5-40) units/L ALT 14 (7-56) units/L Alkaline Phosphatase 91 (35-129) units/L Albumin 3.6 L (3.9-5) g/dL - Imaging and Cardiology CT scan - abdomen: report reviewed (Patulous cystic duct with gall stones) Imaging and Cardiology: Abd CT/pelvis GALLBLADDER/BILIARY TREE: Multiple surgical clips are present in the gallbladder fossa. Tubular fluid density structure within the gallbladder fossa presumably reflects a partially decompressed gallbladder. There is no significant wall thickening. There are 2 calcified gallstones in the region of the gallbladder neck. No common bile duct dilatation. This area appears stable with prior study. PANCREAS: Unremarkable SPLEEN: Unremarkable ADRENALS: Unremarkable KIDNEYS / URETER: Unremarkable URINARY BLADDER: Bladder is partially decompressed, though grossly unremarkable. REPRODUCTIVE ORGANS: Unremarkable STOMACH / SMALL BOWEL: Stomach and small bowel are normal in caliber. No evidence of bowel inflammation . COLON: Colon is unremarkable. The appendix is normal in caliber. LYMPH NODES: No significant adenopathy. VASCULATURE: No significant abnormality. OTHER: No free air, free fluid, or focal fluid collection is identified. SKELETAL SYSTEM: No acute osseous findings. IMPRESSION: No acute abnormality in the abdomen or pelvis. Other stable chronic and incidental findings, as above. Right upper quadrant ultrasound IMPRESSION: 1. Patient is status post cholecystectomy with residual tubular cystic structure, most likely representing a patulous cystic duct. Small c alcifications at the base of the cystic duct are not well-visualized by ultrasound, though most likely represent retained ductal stones. No common bile duct dilatation. 2. Fatty infiltration of the liver. Coates/IV: IV Catheter Type [Right INT / Saline Lock Antecubital] Assessment and Plan Advance Directives: Yes (FC) VTE prophylaxis?: Chemical Plan of care discussed with patient/family: Yes - Patient Problems (1) Biliary colic Current Visit: Yes Status: Acute Plan to address problem: Patulous cystic duct with gall stones pain control GI and surgery consult ERCP versus surgery (2) Cholelithiasis Current Visit: Yes Status: Acute Qualifiers: Cholelithiasis location: bile duct Cholecystitis acuity: acute and chronic Biliary obstruction: without biliary obstruction Qualified Code(s): K80.12 - Calculus of gallbladder with acute and chronic cholecystitis without obstruction Plan to address problem: Gall stones from patullous cystic duct causing biliary cokic?? pain control (3) HIV (human immunodeficiency virus infection) Current Visit: Yes Status: Chronic Qualifiers: HIV symptom status: asymptomatic Qualified Code(s): Z21 - Asymptomatic human immunodeficiency virus [HIV] infection status Plan to address problem: On aniretrovirals (4) DVT prophylaxis Current Visit: Yes Status: Acute Plan to address problem: Hepatin and GI prophylaxis
[2020-04-17] MEDS ORDERED: ACETAMINOPHEN 325 MG TAB PO PRN (17:00)
[2020-04-17] MEDS ORDERED: oxyCODONE /ACETAMINOPHEN 5-325MG TAB PO PRN (17:00)
[2020-04-17] MEDS ORDERED: METOCLOPRAMIDE 10 MG/2 ML INJ IV PRN (17:00)
[2020-04-17] MEDS ORDERED: HYDROmorphone 1 MG/1 ML INJ ONE (17:17)
[2020-04-17] MEDS: HYDROmorphone 1 MG/1 ML INJ IV PRN ×2 (17:21→20:57)
--- NOTE | 2020-04-17 18:41 | Consultation ---
History of Present Illness Consult date: 04/17/20 Reason for consult: abdominal pain Chief complaint: Abdominal pain - History of present illness History of present illness: 29-year-old male with history of HIV, cholecystectomy in 2013 who presented to [facility] emergency room with right upper quadrant abdominal pain. The patient states he has been having this pain for the last 2 weeks and originally presented to [place]. He underwent work-up and was told that he still had a portion of his gallbladder with stones. He was told that he may need a specialist to address this. Patient states the pain is in the right upper quadrant, intermittent and sharp. Nonradiating. It is not associated with any specific foods. He is having nausea and vomiting. No fevers or chills. He states he has been having intermittent pain once a year since his gallbladder was removed. Cholecystectomy was performed at [facility]. He is unsure of the details but feels that his current pain is similar to before his gallbladder was removed. His nausea is now resolved and his pain is controlled with pain medication. He is asking for food. Past History Past Medical History: other (HIV) Past Surgical History: cholecystectomy Social history: no significant social history Family history: no significant family history Medications and Allergies Allergies Allergy/AdvReac Type Severity Reaction Status Date / Time No Known Allergies Allergy Verified 05/29/19 12:32 Home Medications Medication Instructions Recorded Confirmed Last Taken Type Ketorolac [Toradol] 10 mg PO Q6H PRN #15 tablet 04/12/19 Unknown Rx methOCARBAMOL [Robaxin] 750 mg PO Q8H PRN #21 tablet 04/12/19 Unknown Rx Benzonatate [Tessalon Perles] 100 mg PO Q8HR #30 capsule 05/07/19 Unknown Rx HYDROcodone/APAP 5-325 [[facility] 1 - 2 each PO Q6HR PRN #14 tablet 05/07/19 Unknow n Rx 5/325] Ibuprofen [Motrin 800 MG tab] 800 mg PO Q8HR PRN #20 tablet 05/07/19 Unknown Rx Acetaminophen/Codeine [Tylenol 1 tab PO Q6H PRN #12 tab 05/27/19 Unknown Rx /Codeine # 3 tab] Sulfamethoxazole/Trimethoprim 1 each PO BID #14 tablet 05/27/19 Unknown Rx [Bactrim DS TAB] Albuterol Mdi (or & Nicu Only) 2 puff IH QID PRN #8.5 gram 07/29/19 Unknown Rx [ProAir HFA Inhaler] Benzonatate [Tessalon Perles] 100 mg PO Q8HR PRN #30 capsule 07/29/19 Unknown Rx methylPREDNISolone [Medrol 4MG 4 mg PO DAILY #1 tab.ds.pk 07/29/19 Unknown Rx DOSEPAK (21 tabs)] Famotidine [Pepcid] 40 mg PO QHS #14 tablet 10/03/19 Unknown Rx Ondansetron [Zofran Odt] 4 mg PO Q8HR PRN #12 tab.rapdis 10/03/19 Unknown Rx traMADoL [Ultram 50 MG tab] 50 mg PO Q6HR PRN #7 tablet 10/03/19 Unknown Rx Active Meds: Active Medications Acetaminophen (Tylenol) 650 mg PO Q4H PRN PRN Reason: Pain MILD(1-3)/Fever >100.5/STEPHEN Famotidine (Pepcid) 20 mg IV BID TONY Hydromorphone HCl (Dilaudid) 0.5 mg IV Q3H PRN PRN Reason: Pain , Severe (7-10) Last Admin: 04/17/20 17:21 Dose: 0.5 mg Documented by: Sodium Chloride (Nacl 0.9% 1000 Ml) 1,000 mls @ 100 mls/hr IV DIRECT TONY Metoclopramide HCl (Reglan) 10 mg IV Q6H PRN PRN Reason: Nausea And Vomiting Ondansetron HCl (Zofran) 4 mg IV Q8H PRN PRN Reason: Nausea And Vomiting Oxycodone/Acetaminophen (Percocet 5/325) 1 tab PO Q6H PRN PRN Reason: Pain, Moderate (4-6) Sodium Chloride (Sodium Chloride Flush Syringe 10 Ml) 10 ml IV BID TONY Sodium Chloride (Sodium Chloride Flush Syringe 10 Ml) 10 ml IV PRN PRN PRN Reason: LINE FLUSH Review of Systems All systems: negative (10 point ROS performed and negative except for that listed in HPI) Exam Vital Signs Temp Pulse Resp BP Pulse Ox 98.5 F 90 16 129/84 94 04/17/20 03:15 04/17/20 03:15 04/17/20 03:15 04/17/20 03:15 04/17/20 03:15 Narrative exam: Gen.: Awake, alert, oriented 3. No apparent distress ENT: Trachea midline. No lymphadenopathy. No scleral icterus or conjunctival pallor CV: S1, S2 present Respiratory: No audible wheezes Abdomen: Soft, nondistended, right upper quadrant tenderness to palpation. Well-healed laparoscopic surgical scars. No rebound, rigidity, guarding Extremities: No clubbing, cyanosis, edema Results - Labs 04/17/20 03:25 04/17/20 03:25 Abnormal lab results 04/17/20 04/17/20 Range/Units 03:25 03:25 MCH 33 H (28-32) pg MCHC 35 H (32-34) % Swisher % (Auto) 11.6 H (0.0-7.3) % Swisher # (Auto) 1.1 H (0.0-0.8) K/mm3 Seg Neutrophils % 71.3 H (40.0-70.0) % BUN 7 L (9-20) mg/dL Glucose 105 H (75-100) mg/dL Diabetes panel 04/17/20 Range/Units 03:25 Sodium 141 (137-145) mmol/L Potassium 4.2 (3.6-5.0) mmol/L Chloride 100.2 (98-107) mmol/L Carbon Dioxide 28 (22-30) mmol/L BUN 7 L (9-20) mg/dL Creatinine 0.9 (0.8-1.3) mg/dL Glucose 105 H (75-100) mg/dL Calcium 9.7 (8.4-10.2) mg/dL AST 23 (5-40) units/L ALT 21 (7-56) units/L Alkaline Phosphatase 125 (35-129) units/L Total Protein 8.0 (6.3-8.2) g/dL Albumin 4.6 (3.9-5) g/dL Calcium panel 04/17/20 Range/Units 03:25 Calcium 9.7 (8.4-10.2) mg/dL Albumin 4.6 (3.9-5) g/dL Pituitary panel 04/17/20 Range/Units 03:25 Sodium 141 (137-145) mmol/L Potassium 4.2 (3.6-5.0) mmol/L Chloride 100.2 (98-107) mmol/L Carbon Dioxide 28 (22-30) mmol/L BUN 7 L (9-20) mg/dL Creatinine 0.9 (0.8-1.3) mg/dL Glucose 105 H (75-100) mg/dL Calcium 9.7 (8.4-10.2) mg/dL Adrenal panel 04/17/20 Range/Units 03:25 Sodium 141 (137-145) mmol/L Potassium 4.2 (3.6-5.0) mmol/L Chloride 100.2 (98-107) mmol/L Carbon Dioxide 28 (22-30) mmol/L BUN 7 L (9-20) mg/dL Creatinine 0.9 (0.8-1.3) mg/dL Glucose 105 H (75-100) mg/dL Calcium 9.7 (8.4-10.2) mg/dL Total Bilirubin 0.80 (0.1-1.2) mg/dL AST 23 (5-40) units/L ALT 21 (7-56) units/L Alkaline Phosphatase 125 (35-129) units/L Total Protein 8.0 (6.3-8.2) g/dL Albumin 4.6 (3.9-5) g/dL - Imaging CT scan - abdomen: report reviewed, image reviewed CT scan - pelvis: report reviewed, image reviewed US - abdomen: report reviewed, image reviewed Assessment and Plan 29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 admit to hospitalist service for persistent symptoms 2. IVF 3. clear liquid diet, NPO p MN 4. Gi consult - d/w Dr. Arce who will see patient tomorrow 5. prn pain and nausea control Thank you for this consultation. Please call with any questions or concerns. Evaluation and treatment of this patient was during the time of the national and state emergency arising from COVID19 coronavirus pandemic. Treatment and procedures performed meet the current and available best practice and guidelines for patient during the COVID pandemic.
[2020-04-17] MEDS: SODIUM CHLORIDE 0.9% 1000 ML 1,000 ML IV SCH (20:10)
[2020-04-17] MEDS: ONDANSETRON 4 MG/2 ML INJ IV PRN (20:58)
[2020-04-17] MEDS: FAMOTIDINE 20 MG/2 ML INJ IV SCH (21:01)
[2020-04-18] MEDS: HYDROmorphone 1 MG/1 ML INJ IV PRN ×6 (02:35→22:17)
[2020-04-18] MEDS: guaiFENesin 100 MG/5 ML ORAL LIQD PO PRN ×2 (04:40→14:40)
[2020-04-18] MEDS: SODIUM CHLORIDE 0.9% 1000 ML 1,000 ML IV SCH ×2 (04:45→15:08)
[2020-04-18 06:05] LABS: Basophils % (Auto) 0.4 % (0.0-1.8); Eosinophils # (Auto) 0.1 K/mm3 (0.0-0.4); Eosinophils % (Auto) 0.8 % (0.0-4.3); Hematocrit 37.1 % (35.5-45.6); Hemoglobin 12.4 gm/dl (11.8-15.2); Lymphocytes # (Auto) 1.3 K/mm3 (1.2-5.4); Lymphocytes % (Auto) 21.3 % (13.4-35.0); Mean Corpuscular HGB Conc 33 % (32-34); Mean Corpuscular Volume 96 fl (84-94); Monocytes # (Auto) 0.8 K/mm3 (0.0-0.8); Monocytes % (Auto) 12.5 % (0.0-7.3); Platelet Count 245 K/mm3 (140-440); Red Blood Count 3.88 M/mm3 (3.65-5.03); Red Cell Distribution Width 13.4 % (13.2-15.2)
[2020-04-18 06:25] LABS: Alanine Aminotransferase 14 units/L (7-56); Albumin 3.6 g/dL (3.9-5); Blood Urea Nitrogen 6 mg/dL (9-20); Calcium 8.8 mg/dL (8.4-10.2); Hemolysis Index 4
[2020-04-18 06:30] LABS: BUN/Creatinine Ratio 9
[2020-04-18] MEDS ORDERED: BENZONATATE 100 MG CAP PO PRN (07:14)
[2020-04-18] MEDS ORDERED: ALBUTEROL 8.5 GM MDI INHALATION IH PRN (07:14)
[2020-04-18] MEDS ORDERED: ALBUTEROL 2.5 MG/3 ML NEBU IH PRN ×2 (07:25→08:00)
[2020-04-18] MEDS: FAMOTIDINE 20 MG/2 ML INJ IV SCH ×2 (09:42→22:22)
[2020-04-18] MEDS: HEPARIN 5,000 UNIT/1 ML VIAL SUB-Q SCH ×2 (09:42→22:26)
[2020-04-18] MEDS ORDERED: FLU VACC QUAD 2020-2021 (6 months +)/PF 60 0.5 ML SYRINGE IM ONE (12:00)
--- NOTE | 2020-04-18 13:13 | Gastroenterology Consultation ---
History of Present Illness - Reason for Consult Consult date: 04/18/20 abdominal pain Requesting physician: TANA WEST - History of Present Illness This is a 29 yo male with pmh of HIV, previous cholecystectomy in 2013 admitted for RUQ pain. Patient has had intermittent episodes of RUQ pain. Last seen in 03/2020 at [facility] ED for similar symptoms and was evaluated with surgery and had CT showing possible remnant cystic duct with gallstone in the cystic duct. Patient was discharge with recommendations to follow up with hepatobiliary surgery at a tertiary center. Patient came to the ED overnight for worsening RUQ pain and nausea/vomiting. No fever/chills. Patient had CT here showing similar findings of remnant cystic duct with gallstone. Normal LFTs. Medication list reviewed. Past History Past Medical History: other (HIV) Past Surgical History: cholecystectomy Social history: no significant social history Family history: no significant family history Medications and Allergies Allergies Allergy/AdvReac Type Severity Reaction Status Date / Time No Known Allergies Allergy Verified 05/29/19 12:32 Home Medications Medication Instructions Recorded Confirmed Last Taken Type Ketorolac [Toradol] 10 mg PO Q6H PRN #15 tablet 04/12/19 Unknown Rx methOCARBAMOL [Robaxin] 750 mg PO Q8H PRN #21 tablet 04/12/19 Unknown Rx Benzonatate [Tessalon Perles] 100 mg PO Q8HR #30 capsule 05/07/19 Unknown Rx HYDROcodone/APAP 5-325 [[place] 1 - 2 each PO Q6HR PRN #14 tablet 05/07/19 Unknown Rx 5/325] Ibuprofen [Motrin 800 MG tab] 800 mg PO Q8HR PRN #20 tablet 05/07/19 Unknown Rx Acetaminophen/Codeine [Tylenol 1 tab PO Q6H PRN #12 tab 05/27/19 Unknown Rx /Codeine # 3 tab] Sulfamethoxazole/Trimethoprim 1 each PO BID #14 tablet 05/27/19 Unknown Rx [Bactrim DS TAB] Albuterol Mdi (or & Nicu Only) 2 puff IH QID PRN #8.5 gram 07/29/19 Unknown Rx [ProAir HFA Inhaler] Benzonatate [Tessalon Perles] 100 mg PO Q8HR PRN #30 capsule 07/29/19 Unknown Rx methylPREDNISolone [Medrol 4MG 4 mg PO DAILY #1 tab.ds.pk 07/29/19 Unknown Rx DOSEPAK (21 tabs)] Famotidine [Pepcid] 40 mg PO QHS #14 tablet 10/03/19 Unknown Rx Ondansetron [Zofran Odt] 4 mg PO Q8HR PRN #12 tab.rapdis 10/03/19 Unknown Rx traMADoL [Ultram 50 MG tab] 50 mg PO Q6HR PRN #7 tablet 10/03/19 Unknown Rx Active Meds: Active Medications Acetaminophen (Tylenol) 650 mg PO Q4H PRN PRN Reason: Pain MILD(1-3)/Fever >100.5/STEPHEN Albuterol (Proventil) 2.5 mg IH QIDRT PRN PRN Reason: Shortness Of Breath Benzonatate (Tessalon Perles) 100 mg PO Q8HR PRN PRN Reason: Cough Famotidine (Pepcid) 20 mg IV BID [facility] Last Admin: 04/18/20 09:42 Dose: 20 mg Documented by: Guaifenesin (Robitussin) 200 mg PO Q4H PRN PRN Reason: Cough Last Admin: 04/18/20 04:40 Dose: 200 mg Documented by: Heparin Sodium (Porcine) (Heparin) 5,000 unit SUB-Q Q12HR [facility] Last Admin: 04/18/20 09:42 Dose: 5,000 unit Documented by: Hydromorphone HCl (Dilaudid) 0.5 mg IV Q3H PRN PRN Reason: Pain , Severe (7-10) Last Admin: 04/18/20 09:42 Dose: 0.5 mg Documented by: Sodium Chloride (Nacl 0.9% 1000 Ml) 1,000 mls @ 100 mls/hr IV DIRECT [facility] Last Admin: 04/18/20 04:45 Dose: 100 mls/hr Documented by: Metoclopramide HCl (Reglan) 10 mg IV Q6H PRN PRN Reason: Nausea And Vomiting Ondansetron HCl (Zofran) 4 mg IV Q8H PRN PRN Reason: Nausea And Vomiting Last Admin: 04/17/20 20:58 Dose: 4 mg Documented by: Oxycodone/Acetaminophen (Percocet 5/325) 1 tab PO Q6H PRN PRN Reason: Pain, Moderate (4-6) Sodium Chloride (Sodium Chloride Flush Syringe 10 Ml) 10 ml IV BID TONY Last Admin: 04/18/20 09:52 Dose: 10 ml Documented by: Sodium Chloride (Sodium Chloride Flush Syringe 10 Ml) 10 ml IV PRN PRN PRN Reason: LINE FLUSH Review of Systems - Review of Systems Constitutional: no weight loss, no weight gain Cardiovascular: no chest pain, no edema Gastrointestinal: abdominal pain, nausea, vomiting, no diarrhea, no constipation Neurological: no head injury Psychiatric: no anxiety Endocrine: no cold intolerance Hematologic/Lymphatic: no easy bruising Allergic/Immunologic: no wheezing Exam - Constitutional Vital Signs: Temp Pulse Resp BP Pulse Ox 98.5 F 67 20 107/57 93 04/18/20 04:12 04/18/20 12:51 04/18/20 12:51 04/18/20 04:12 04/18/20 04:12 General appearance: no acute distress - EENT Eyes: EOM intact ENT: hearing intact - Respiratory Respiratory effort: normal - Cardiovascular Rhythm: regular Heart Sounds: Present: S1 & S2 - Gastrointestinal General gastrointestinal: Present: non-distended - Integumentary Integumentary: Absent: jaundice - Neurologic Neurological: alert and oriented x3 - Labs CBC & Chem 7: 04/18/20 05:51 04/18/20 05:51 Lab Results: Laboratory Results - last 24 hr 04/18/20 04/18/20 04/18/20 05:51 05:51 05:51 WBC 6.2 RBC 3.88 Hgb 12.4 Hct 37.1 D MCV 96 H MCH 32 MCHC 33 RDW 13.4 Plt Count 245 Lymph % (Auto) 21.3 [place] % (Auto) 12.5 H Eos % (Auto) 0.8 Baso % (Auto) 0.4 Lymph # (Auto) 1.3 [place] # (Auto) 0.8 Eos # (Auto) 0.1 Baso # (Auto) 0.0 Seg Neutrophils % 65.0 Seg Neutrophils # 4.0 Sodium 139 Potassium 4.2 Chloride 102.7 Carbon Dioxide 29 Anion Gap 12 BUN 6 L Creatinine 0.7 L Estimated GFR > 60 BUN/Creatinine Ratio 9 Glucose 83 Hemoglobin A1c 4.9 Calcium 8.8 Total Bilirubin 0.80 AST 16 ALT 14 Alkaline Phosphatase 91 Total Protein 6.2 L D Albumin 3.6 L Albumin/Globulin Ratio 1.4 - Imaging CT Scan: report reviewed Assessment and Plan - Patient Problems (1) Biliary colic Current Visit: Yes Status: Acute Plan to address problem: - h/o cholecystectomy in 2013 at outside hospital. - Chronic intermittent RUQ pain. - CT findings of possible remnant cystic duct and retained gallstone. - reviewed records from [facility] with recent ED visit in 03/2020 and admission in 06/2018 with MRCP done during that time. - unclear if his pain is due to remnant cystic duct and gallstone causing in termittent biliary colic vs others. - GI was consulted to evaluate for need for ERCP for the cystic duct stone. It is difficult to access and remove cystic duct with ERCP but better done with spyglass for better visualization. Recommend that patient to be evaluated at a tertiary center with hepatobiliary surgery consultation which can be done as outpatient. Recommend antibiotics. discussed with patient and Dr. West with surgery.
--- NOTE | 2020-04-18 14:09 | Progress Note ---
Assessment and Plan Assessment and plan: 29-year-old male with history of HIV, cholecystectomy in 2013 who presented to the emergency room with right upper quadrant abdominal pain. The patient states he has been having this pain for the last 2 weeks and originally presented to [facility]. He underwent work-up and was told that he still had a portion of his gallbladder with stones. He was told that he may need a specialist to address this. Patient states the pain is in the right upper quadrant, intermittent and sharp. Nonradiating. It is not associated with any specific foods. He is having nausea and vomiting. No fevers or chills. He states he has been having intermittent pain once a year since his gallbladder was removed. Cholecystectomy was performed at [facility]. He is unsure of the details but feels that his current pain is similar to before his gallbladder was removed. Problem (1) Biliary colic Current Visit: Yes Status: Acute Plan to address problem: GI on board Maintain NPO for now. (2) Cholelithiasis Current Visit: Yes Status: Acute Qualifiers: Cholelithiasis location: bile duct Cholecystitis acuity: acute and chronic Biliary obstruction: without biliary obstruction Qualified Code(s): K80.12 - Calculus of gallbladder with acute and chronic cholecystitis without obstruction Plan to address problem: Gall stones from patullous cystic duct causing biliary cokic?? pain control (3) HIV (human immunodeficiency virus infection) Current Visit: Yes Status: Chronic Qualifiers: HIV symptom status: asymptomatic Qualified Code(s): Z21 - Asymptomatic human immunodeficiency virus [HIV] infection status Plan to address problem: On antivirals (4) DVT prophylaxis Current Visit: Yes Status: Acute Plan to address problem: Heparin and GI prophylaxis History Interval history: Patient seen and examined at bedside. Has abdominal discomforts more on right side. Had vomiting yesterday but has not had any vomiting today GI has been consulted Hospitalist Physical - Physical exam Narrative exam: VITAL SIGNS: Reviewed. GENERAL: Awake and alert on response to questions HEAD: No signs of head trauma. EYES: Pupils are equal. Extraocular motions intact. EARS: Hearing grossly intact. MOUTH: Oropharynx is normal. NECK: No adenopathy, no JVD. CHEST: Chest with diminished breath sounds bilaterally. No wheezes, rales, or rhonchi. CARDIAC: Regular rate and rhythm. S1 and S2, without murmurs, gallops, or rubs. VASCULAR: No Edema. Peripheral pulses normal and equal in all extremities. ABDOMEN: Soft, slight tenderness in the right upper quadrant area, bowel sounds positive MUSCULOSKELETAL: Good range of motion of all major joints. Extremities without clubbing, cyanosis or edema. NEUROLOGIC EXAM: Alert and oriented x3. No focal neurologic deficits PSYCHIATRIC: Stable mood SKIN: No obvious lesions - Constitutional Vitals: Temp Pulse Resp BP Pulse Ox 98.5 F 67 20 107/57 93 04/18/20 04:12 04/18/20 12:51 04/18/20 12:51 04/18/20 04:12 04/18/20 04:12 Results - Labs CBC & Chem 7: 04/18/20 05:51 04/18/20 05:51 Labs: Laboratory Last Values WBC 6.2 K/mm3 (4.5-11.0) 04/18/20 05:51 RBC 3.88 M/mm3 (3.65-5.03) 04/18/20 05:51 Hgb 12.4 gm/dl (11.8-15.2) 04/18/20 05:51 Hct 37.1 % (35.5-45.6) D 04/18/20 05:51 MCV 96 fl (84-94) H 04/18/20 05:51 MCH 32 pg (28-32) 04/18/20 05:51 MCHC 33 % (32-34) 04/18/20 05:51 RDW 13.4 % (13.2-15.2) 04/18/20 05:51 Plt Count 245 K/mm3 (140-440) 04/18/20 05:51 Lymph % (Auto) 21.3 % (13.4-35.0) 04/18/20 05:51 [place] % (Auto) 12.5 % (0.0-7.3) H 04/18/20 05:51 Eos % (Auto) 0.8 % (0.0-4.3) 04/18/20 05:51 Baso % (Auto) 0.4 % (0.0-1.8) 04/18/20 05:51 Lymph # (Auto) 1.3 K/mm3 (1.2-5.4) 04/18/20 05:51 [place] # (Auto) 0.8 K/mm3 (0.0-0.8) 04/18/20 05:51 Eos # (Auto) 0.1 K/mm3 (0.0-0.4) 04/18/20 05:51 Baso # (Auto) 0.0 K/mm3 (0.0-0.1) 04/18/20 05:51 Seg Neutrophils % 65.0 % (40.0-70.0) 04/18/20 05:51 Seg Neutrophils # 4.0 K/mm3 (1.8-7.7) 04/18/20 05:51 Sodium 139 mmol/L (137-145) 04/18/20 05:51 Potassium 4.2 mmol/L (3.6-5.0) 04/18/20 05:51 Chloride 102.7 mmol/L (98-107) 04/18/20 05:51 Carbon Dioxide 29 mmol/L (22-30) 04/18/20 05:51 Anion Gap 12 mmol/L 04/18/20 05:51 BUN 6 mg/dL (9-20) L 04/18/20 05:51 Creatinine 0.7 mg/dL (0.8-1.3) L 04/18/20 05:51 Estimated GFR > 60 ml/min 04/18/20 05:51 BUN/Creatinine Ratio 9 % 04/18/20 05:51 Glucose 83 mg/dL (75-100) 04/18/20 05:51 Hemoglobin A1c 4.9 % (4-6) 04/18/20 05:51 Calcium 8.8 mg/dL (8.4-10.2) 04/18/20 05:51 Total Bilirubin 0.80 mg/dL (0.1-1.2) 04/18/20 05:51 AST 16 units/L (5-40) 04/18/20 05:51 ALT 14 units/L (7-56) 04/18/20 05:51 Alkaline Phosphatase 91 units/L (35-129) 04/18/20 05:51 Total Protein 6.2 g/dL (6.3-8.2) L D 04/18/20 05:51 Albumin 3.6 g/dL (3.9-5) L 04/18/20 05:51 Albumin/Globulin Ratio 1.4 % 04/18/20 05:51 Lipase 33 units/L (13-60) 04/17/20 05:21 Urine Color Yellow (Yellow) 04/17/20 03:31 Urine Turbidity Clear (Clear) 04/17/20 03:31 Urine pH 6.0 (5.0-7.0) 04/17/20 03:31 Ur Specific [place] 1.020 (1.003-1.030) 04/17/20 03:31 Urine Protein <15 mg/dl mg/dL (Negative) 04/17/20 03:31 Urine Glucose (UA) Neg mg/dL (Negative) 04/17/20 03:31 Urine Ketones Neg mg/dL (Negative) 04/17/20 03:31 Urine Blood Neg (Negative) 04/17/20 03:31 Urine Nitrite Neg (Negative) 04/17/20 03:31 Urine Bilirubin Neg (Negative) 04/17/20 03:31 Urine Urobilinogen 4.0 mg/dL (<2.0) 04/17/20 03:31 Ur Leukocyte Esterase Neg (Negative) 04/17/20 03:31 Urine WBC (Auto) 1.0 /HPF (0.0-6.0) 04/17/20 03:31 Urine RBC (Auto) 1.0 /HPF (0.0-6.0) 04/17/20 03:31 Urine Bacteria (Auto) 1+ /HPF (Negative) 04/17/20 03:31 Urine Mucus Few /HPF 04/17/20 03:31 [place]/IV: Voiding Method Toilet IV Catheter Type [Right INT / Saline Lock Antecubital] Active Medications - Current Medications Current Medications: Generic Name Dose Route Start Last Admin Trade Name Freq PRN Reason Stop Dose Admin Acetaminophen 650 mg 04/17/20 17:00 Tylenol PO Q4H PRN Pain MILD(1-3)/Fever >100.5/STEPHEN Albuterol 2.5 mg 04/18/20 08:00 Proventil IH QIDRT PRN Shortness Of Breath Benzonatate 100 mg 04/18/20 07:14 Tessalon Perles PO Q8HR PRN Cough Famotidine 20 mg 04/17/20 22:00 04/18/20 09:42 Pepcid IV 20 mg BID TONY Administration Guaifenesin 200 mg 04/18/20 03:51 04/18/20 04:40 Robitussin PO 200 mg Q4H PRN Administration Cough Heparin Sodium (Porcine) 5,000 unit 04/18/20 10:00 04/18/20 09:42 Heparin SUB-Q 5,000 unit Q12HR TONY Administration Hydromorphone HCl 0.5 mg 04/17/20 17:00 04/18/20 13:21 Dilaudid IV 0.5 mg Q3H PRN Administration Pain , Severe (7-10) Sodium Chloride 1,000 mls @ 100 mls/hr 04/17/20 17:00 04/18/20 04:45 Nacl 0.9% 1000 Ml IV 100 mls/hr DIRECT TONY Administration Metoclopramide HCl 10 mg 04/17/20 17:00 Reglan IV Q6H PRN Nausea And Vomiting Ondansetron HCl 4 mg 04/17/20 17:00 04/17/20 20:58 Zofran IV 4 mg Q8H PRN Administration Nausea And Vomiting Oxycodone/Acetaminophen 1 tab 04/17/20 17:00 Percocet 5/325 PO Q6H PRN Pain, Moderate (4-6) Sodium Chloride 10 ml 04/17/20 22:00 04/18/20 09:52 Sodium Chloride Flush Syringe 10 Ml IV 10 ml BID TONY Administration Sodium Chloride 10 ml 04/17/20 17:00 Sodium Chloride Flush Syringe 10 Ml IV PRN PRN LINE FLUSH
--- NOTE | 2020-04-18 17:32 | Progress Note ---
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 Advance diet as tolerated 2. IVF 3. prn PO pain control 4. recommend empiric abx x 10 days - will start zosyn as inpatient and may be transitioned to oral abx upon dc 5. Discussed patient with Dr. Arce. Patient has had w/u at [place] for similar pain in where he underwent various imaging including MRCP. Same findings by imaging as this admission - cystic duct stump with stones. Surgical consult at that time advised HBP follow up if surgery was needed. Patient may be discharged to home from surgery as his symptoms are improving. I explained to him the nature of the images findings and explained that a hepatobiliary surgery consultation would be next appropriate step to determine if surgical intervention is needed on residual cystic duct. Recommend outpatient follow up at [place]. Thank you for this consultation. Please call with any questions or concerns. Evaluation and treatment of this patient was during the time of the national and state emergency arising from COVID19 coronavirus pandemic. Treatment and procedures performed meet the current and available best practice and guidelines for patient during the COVID pandemic. Subjective Date of service: 04/18/20 Narrative: Patient seen and examined. States he feels better today. Pain is more manageable. No nausea or vomiting. He feels hungry. No fevers or chills. Objective Vital Signs - 12hr 04/18/20 04/18/20 04/18/20 06:37 07:07 09:42 Temperature Pulse Rate Pulse Rate [ Right Radial] Respiratory 18 17 20 Rate Blood Pressure O2 Sat by Pulse Oximetry 04/18/20 04/18/20 12:35 12:51 Temperature 97.9 F Pulse Rate 63 Pulse Rate [ 67 Right Radial] Respiratory 22 20 Rate Blood Pressure 112/63 O2 Sat by Pulse 94 Oximetry - General physical appearance Narrative Exam: Gen.: Awake, alert, oriented 3. No apparent distress ENT: Trachea midline. No lymphadenopathy. No scleral icterus or conjunctival pallor CV: S1, S2 present Respiratory: No audible wheezes Abdomen: Soft, nondistended, mild right upper quadrant abdominal pain. No rebound, rigidity, guarding Extremities: No clubbing, cyanosis, edema - Labs 04/18/20 05:51 04/18/20 05:51 Diabetes panel 04/18/20 04/18/20 Range/Units 05:51 05:51 Sodium 139 (137-145) mmol/L Potassium 4.2 (3.6-5.0) mmol/L Chloride 102.7 (98-107) mmol/L Carbon Dioxide 29 (22-30) mmol/L BUN 6 L (9-20) mg/dL Creatinine 0.7 L (0.8-1.3) mg/dL Glucose 83 (75-100) mg/dL Hemoglobin A1c 4.9 (4-6) % Calcium 8.8 (8.4-10.2) mg/dL AST 16 (5-40) units/L ALT 14 (7-56) units/L Alkaline Phosphatase 91 (35-129) units/L Total Protein 6.2 L D (6.3-8.2) g/dL Albumin 3.6 L (3.9-5) g/dL Calcium panel 04/18/20 Range/Units 05:51 Calcium 8.8 (8.4-10.2) mg/dL Albumin 3.6 L (3.9-5) g/dL Pituitary panel 04/18/20 Range/Units 05:51 Sodium 139 (137-145) mmol/L Potassium 4.2 (3.6-5.0) mmol/L Chloride 102.7 (98-107) mmol/L Carbon Dioxide 29 (22-30) mmol/L BUN 6 L (9-20) mg/dL Creatinine 0.7 L (0.8-1.3) mg/dL Glucose 83 (75-100) mg/dL Calcium 8.8 (8.4-10.2) mg/dL Adrenal panel 04/18/20 Range/Units 05:51 Sodium 139 (137-145) mmol/L Potassium 4.2 (3.6-5.0) mmol/L Chloride 102.7 (98-107) mmol/L Carbon Dioxide 29 (22-30) mmol/L BUN 6 L (9-20) mg/dL Creatinine 0.7 L (0.8-1.3) mg/dL Glucose 83 (75-100) mg/dL Calcium 8.8 (8.4-10.2) mg/dL Total Bilirubin 0.80 (0.1-1.2) mg/dL AST 16 (5-40) units/L ALT 14 (7-56) units/L Alkaline Phosphatase 91 (35-129) units/L Total Protein 6.2 L D (6.3-8.2) g/dL Albumin 3.6 L (3.9-5) g/dL
[2020-04-18] MEDS: PIPERACIL/TAZOBACTA 4.5/NS 100 4.5 GM/100 ML VIAL IV SCH ×2 (18:11→22:24)
[2020-04-18] MEDS: ONDANSETRON 4 MG/2 ML INJ IV PRN (22:20)
[2020-04-19] MEDS: HYDROmorphone 1 MG/1 ML INJ IV PRN ×3 (01:33→08:55)
[2020-04-19] MEDS: SODIUM CHLORIDE 0.9% 1000 ML 1,000 ML IV SCH (01:34)
[2020-04-19] MEDS: PIPERACIL/TAZOBACTA 4.5/NS 100 4.5 GM/100 ML VIAL IV SCH (05:50)
[2020-04-19 07:01] VITALS: BP 154/90
--- NOTE | 2020-04-19 09:57 | Discharge Summary ---
<TANA WEST - Last Filed: 04/19/20 10:34> Providers - Providers Date of Admission: 04/18/20 13:32 Attending physician: PIERRE BARNES 04/17/20 12:52 Consult to Physician [CONS] Urgent Comment: Consulting Provider: TANA WEST Physician Instructions: Reason For Exam: Biliary colic 04/17/20 18:49 Consult to Physician [CONS] Routine Comment: Consulting Provider: ION ESPINOZA Physician Instructions: Reason For Exam: stones in cystic duct remnant, post chol 2013 Primary care physician: CR[employer]GR[employer] ANALYST Hospitalization Condition: Stable Disposition: DC-01 TO HOME OR SELFCARE Exam - Constitutional Vitals: Temp Pulse Resp BP Pulse Ox 98.2 F 77 18 154/90 98 04/19/20 05:16 04/19/20 05:16 04/19/20 05:16 04/19/20 05:16 04/19/20 05:16 Plan Additional Instructions: Call [facility] at [phone] to make appointment with specialized surgeon (Hepatobiliary) Follow up with: PRIMARY CARE, [Primary Care Provider] - 3-5 Days Prescriptions: Amoxicillin/Potassium Clav [Augmentin 875-125 Tablet] 1 each PO BID #16 tablet oxyCODONE /ACETAMINOPHEN [Percocet 5/325 mg] 1 tab PO Q6H PRN #6 tablet PRN Reason: Pain, Moderate (4-6) <PIERRE BARNES - Last Filed: 04/20/20 14:45> Providers - Providers Date of Admission: 04/18/20 13:32 Date of discharge: 04/19/20 Attending physician: PIERRE BARNES 04/17/20 12:52 Consult to Physician [CONS] Urgent Comment: Consulting Provider: TANA WEST Physician Instructions: Reason For Exam: Biliary colic 04/17/20 18:49 Consult to Physician [CONS] Routine Comment: Consulting Provider: ION ESPINOZA Physician Instructions: Reason For Exam: stones in cystic duct remnant, post chol 2013 Primary care physician: JOAN BRAUN MD Hospitalization Hospital course: 29-year-old male with history of HIV, cholecystectomy in 2013 presented to the emergency room with right upper quadrant abdominal pain. The patient states he has been having this pain for the last 2 weeks and originally presented to [facility]. He underwent work-up and was told that he still had a portion of his gallbladder with stones. He was told that he may need a specialist to address this. Patient states the pain is in the right upper quadrant, intermittent and sharp. Nonradiating. It is not associated with any specific foods. He is having nausea and vomiting. No fevers or chills. He states he has been having intermittent pain once a year since his gallbladder was removed. Cholecystectomy was performed at [facility]. He is unsure of the details but feels that his current pain is similar to before his gallbladder was removed. Here, patient had CT abdomen that showed patulous cystic duct with 2 calcified gallstones located at the base of the cystic duct concerning for retained ductal stones. Surgery and GI were consulted. Patient was made n.p.o. As per surgery, patient will need to have further evaluation at [facility] by hepatobiliary surgeon for evaluation. This can be done as outpatient. Patient was started on a diet which he tolerated. He has been switched to oral antibiotics which he will complete in 10 days as per surgeon recommendations. Patient remained afebrile admission. He will be discharged on antibiotics and follow-up with hepatobiliary surgeon in [facility]. - Discharge Diagnoses (1) Biliary colic Status: Acute (2) Abdominal pain Status: Acute Comment: Secondary to biliary colic Core Measure Documentation - Palliative Care Palliative Care/ Comfort Measures: Not Applicable - Core Measures Any of the following diagnoses?: none Exam - Physical Exam Narrative exam: VITAL SIGNS: Reviewed. GENERAL: Awake and alert on response to questions HEAD: No signs of head trauma. EYES: Pupils are equal. Extraocular motions intact. EARS: Hearing grossly intact. MOUTH: Oropharynx is normal. NECK: No adenopathy, no JVD. CHEST: Chest with diminished breath sounds bilaterally. No wheezes, rales, or rhonchi. CARDIAC: Regular rate and rhythm. S1 and S2, without murmurs, gallops, or rubs. VASCULAR: No Edema. Peripheral pulses normal and equal in all extremities. ABDOMEN: Soft, slight tenderness in the right upper quadrant area, bowel sounds positive MUSCULOSKELETAL: Good range of motion of all major joints. Extremities without clubbing, cyanosis or edema. NEUROLOGIC EXAM: Alert and oriented x3. No focal neurologic deficits PSYCHIATRIC: Stable mood SKIN: No obvious lesions - Constitutional Vitals: Temp Pulse Resp BP Pulse Ox 98.2 F 77 18 154/90 98 04/19/20 05:16 04/19/20 05:16 04/19/20 05:16 04/19/20 05:16 04/19/20 05:16 Plan Activity: no restrictions Diet: low fat Additional Instructions: Continue Augmentin for 8 days. Follow-up with hepatobiliary surgeon in [facility] for further evaluation. Continue to take your home medications as prescribed.
[2020-04-19] MEDS: FAMOTIDINE 20 MG/2 ML INJ IV SCH (11:54)
[2020-04-19] MEDS: HEPARIN 5,000 UNIT/1 ML VIAL SUB-Q SCH (11:57)
== END 2020-04-19 14:37 | disposition home or self-care (01) | DRG 446 ==
LOC: ED 03:12 → 3A 12:50 → OBSVTOIN 04-18 13:32
PROVIDERS: ADMIT Internal Medicine; ATTEND Internal Medicine
DX: K80.12 Calculus of gallbladder with acute and chronic cholecystitis without obstruction (principal); Z21 Asymptomatic human immunodeficiency virus [HIV] infection status; Z20.828 Contact with and (suspected) exposure to other viral communicable diseases; F17.200 Nicotine dependence, unspecified, uncomplicated
CPT/HCPCS: 36415; 74177; 76705; 80053; 81001; 83036; 83690; 85025; 90686; 93005; 96361; 96374; 96375; 99406; G0378; J1170; J1644; J2270; J2405; J2543; J7030; Q9967; U0003

== ENCOUNTER 2020-04-23 19:22 | Inpatient (IN) | payer BC ==
--- NOTE | 2020-04-23 19:30 | Event Note ---
ED Screening Note Date of service: 04/23/20 Time: 19:30 ED Screening Note: 29-year-old male presents emerged department with epigastric pain. He had been seen recently and has a known common bile duct stone but is unable to see his GI doctor to have this fixed until next week. Reports the pain is increasing and he ran out of pain pills. This initial assessment/diagnostic orders/clinical plan/treatment(s) is/are subject to change based on patients health status, clinical progression and re- assessment by fellow clinical providers in the ED. Further treatment and workup at subsequent clinical providers discretion. Patient/guardian urged not to elope from the ED as their condition may be serious if not clinically assessed and managed. Initial orders include: CBC, CMP, lipase, urinalysis
[2020-04-23 20:09] LABS: Basophils % (Auto) 0.1 % (0.0-1.8); Eosinophils % (Auto) 0.5 % (0.0-4.3); Hemoglobin 15.3 gm/dl (11.8-15.2); Lymphocytes # (Auto) 0.9 K/mm3 (1.2-5.4); Lymphocytes % (Auto) 12.1 % (13.4-35.0); Mean Corpuscular HGB Conc 34 % (32-34); Mean Corpuscular Volume 94 fl (84-94); Monocytes # (Auto) 0.6 K/mm3 (0.0-0.8); Monocytes % (Auto) 8.4 % (0.0-7.3); Platelet Count 373 K/mm3 (140-440); Red Blood Count 4.78 M/mm3 (3.65-5.03); Red Cell Distribution Width 13.3 % (13.2-15.2)
[2020-04-23 20:32] LABS: Alanine Aminotransferase 241 units/L (7-56); Albumin 4.2 g/dL (3.9-5); Blood Urea Nitrogen 9 mg/dL (9-20); Calcium 9.8 mg/dL (8.4-10.2); Hemolysis Index 0
[2020-04-23 20:35] LABS: BUN/Creatinine Ratio 13
[2020-04-23] MEDS ORDERED: PANTOPRAZOLE 40 MG INJ IV ONE (21:23)
[2020-04-23] MEDS ORDERED: MORPHINE 4 MG/1 ML INJ IV ONE (21:23)
[2020-04-23] MEDS ORDERED: SODIUM CHLORIDE 0.9% 1000 ML 1,000 ML IV ONE (21:23)
[2020-04-23] MEDS ORDERED: ONDANSETRON 4 MG/2 ML INJ IV ONE (21:23)
--- NOTE | 2020-04-23 21:43 | Emergency Department Report ---
ED Abdominal Pain HPI - General Chief Complaint: Abdominal Pain Stated Complaint: ABD PAIN/GALLSTONES Time Seen by Provider: 04/23/20 21:13 Source: patient Mode of arrival: Ambulatory Limitations: No Limitations - History of Present Illness Initial Comments: Patient is a 29-year-old male who presents emergency room with complaints of epigastric abdominal pain that began at 8 AM this morning. He states that it is a sharp stabbing pain and states that it feels "like a bomb went off in his abdomen." He has associated nausea and vomiting. He states he had approximately 4 episodes of vomiting. Patient was evaluated in the emergency department on 04/18/[address] abdomen pelvis at that time which showed Patient is status post cholecystectomy. The tubular fluid density structure in the gallbladder fossa most likely represents a patulous cystic duct. 2 calcified gallstones are located at the base of the cystic duct, concerning for retained ductal stones. No common bile duct dilatation. His labs were normal at that time and he was admitted to the hospital and seen by GI inpatient who advised patient to follow-up with a hepatobiliary surgeon as an outpatient. He states that he has an appointment with a specialist at [facility] on 04/25/2020. He states that he was discharged with 6 pain tablets but states that the pain today increased and he was unable to get any relief. He states that he was having diarrhea over the last 2 days but that resolved today. He denies any fever, hematochezia, hematemesis, melena, urinary symptoms. He has a past surgical history of cholecystectomy. Past medical history of HIV and repo rts that he is compliant with his antivirals and states that he has been undetectable. - Related Data Previous Rx's Medication Instructions Recorded Last Taken Type Ketorolac [Toradol] 10 mg PO Q6H PRN #15 tablet 04/12/19 Unknown Rx methOCARBAMOL [Robaxin] 750 mg PO Q8H PRN #21 tablet 04/12/19 Unknown Rx Benzonatate [Tessalon Perles] 100 mg PO Q8HR #30 capsule 05/07/19 Unknown Rx HYDROcodone/APAP 5-325 [[place] 1 - 2 each PO Q6HR PRN #14 tablet 05/07/19 Unknown Rx 5/325] Ibuprofen [Motrin 800 MG tab] 800 mg PO Q8HR PRN #20 tablet 05/07/19 Unknown Rx Acetaminophen/Codeine [Tylenol 1 tab PO Q6H PRN #12 tab 05/27/19 Unknown Rx /Codeine # 3 tab] Sulfamethoxazole/Trimethoprim 1 each PO BID #14 tablet 05/27/19 Unknown Rx [Bactrim DS TAB] Albuterol Mdi (or & Nicu Only) 2 puff IH QID PRN #8.5 gram 07/29/19 Unknown Rx [ProAir HFA Inhaler] Benzonatate [Tessalon Perles] 100 mg PO Q8HR PRN #30 capsule 07/29/19 Unknown Rx methylPREDNISolone [Medrol 4MG 4 mg PO DAILY #1 tab.ds.pk 07/29/19 Unknown Rx DOSEPAK (21 tabs)] Famotidine [Pepcid] 40 mg PO QHS #14 tablet 10/03/19 Unknown Rx Ondansetron [Zofran Odt] 4 mg PO Q8HR PRN #12 tab.rapdis 10/03/19 Unknown Rx traMADoL [Ultram 50 MG tab] 50 mg PO Q6HR PRN #7 tablet 10/03/19 Unknown Rx Amoxicillin/Potassium Clav 1 each PO BID #16 tablet 04/19/20 Unknown Rx [Augmentin 875-125 Tablet] oxyCODONE /ACETAMINOPHEN [Percocet 1 tab PO Q6H PRN #6 tablet 04/19/20 Unknown Rx 5/325 mg] Allergies Allergy/AdvReac Type Severity Reaction Status Date / Time No Known Allergies Allergy Verified 05/29/19 12:32 ED Review of Systems ROS: Stated complaint: ABD PAIN/GALLSTONES Other details as noted in HPI Comment: All other systems reviewed and negative ED Past Medical Hx - Past Medical History Hx Tuberculosis: No Hx HIV: Yes Additional medical history: Infectious disease process (CD4 WNL Winter 2018) - Surgical History Hx Cholecystectomy: Yes - Social History Smoking Status: Current Every Day Smoker Substance Use Type: Alcohol - Medications Home Medications: Home Medications Medication Instructions Recorded Confirmed Last Taken Type Ketorolac [Toradol] 10 mg PO Q6H PRN #15 tablet 04/12/19 Unknown Rx methOCARBAMOL [Robaxin] 750 mg PO Q8H PRN #21 tablet 04/12/19 Unknown Rx Benzonatate [Tessalon Perles] 100 mg PO Q8HR #30 capsule 05/07/19 Unknown Rx HYDROcodone/APAP 5-325 [[place] 1 - 2 each PO Q6HR PRN #14 tablet 05/07/19 Unknown Rx 5/325] Ibuprofen [Motrin 800 MG tab] 800 mg PO Q8HR PRN #20 tablet 05/07/19 Unknown Rx Acetaminophen/Codeine [Tylenol 1 tab PO Q6H PRN #12 tab 05/27/19 Unknown Rx /Codeine # 3 tab] Sulfamethoxazole/Trimethoprim 1 each PO BID #14 tablet 05/27/19 Unknown Rx [Bactrim DS TAB] Albuterol Mdi (or & Nicu Only) 2 puff IH QID PRN #8.5 gram 07/29/19 Unknown Rx [ProAir HFA Inhaler] Benzonatate [Tessalon Perles] 100 mg PO Q8HR PRN #30 capsule 07/29/19 Unknown Rx methylPREDNISolone [Medrol 4MG 4 mg PO DAILY #1 tab.ds.pk 07/29/19 Unknown Rx DOSEPAK (21 tabs)] Famotidine [Pepcid] 40 mg PO QHS #14 tablet 10/03/19 Unknown Rx Ondansetron [Zofran Odt] 4 mg PO Q8HR PRN #12 tab.rapdis 10/03/19 Unknown Rx traMADoL [Ultram 50 MG tab] 50 mg PO Q6HR PRN #7 tablet 10/03/19 Unknown Rx Amoxicillin/Potassium Clav 1 each PO BID #16 tablet 04/19/20 Unknown Rx [Augmentin 875-125 Tablet] oxyCODONE /ACETAMINOPHEN [Percocet 1 tab PO Q6H PRN #6 tablet 04/19/20 Unknown Rx 5/325 mg] ED Physical Exam - General Limitations: No Limitations General appearance: alert, in no apparent distress - Head Head exam: Present: atraumatic, normocephalic - Eye Eye exam: Present: normal appearance - ENT ENT exam: Present: mucous membranes moist - Respiratory Respiratory exam: Present: normal lung sounds bilaterally. Absent: respiratory distress, wheezes, rales, rhonchi, stridor, chest wall tenderness, accessory muscle use, decreased breath sounds, prolonged expiratory - Cardiovascular Cardiovascular Exam: Present: regular rate, normal rhythm, normal heart sounds. Absent: systolic murmur, diastolic murmur, rubs, gallop - GI/Abdominal GI/Abdominal exam: Present: distended (mildly), tenderness (epigastric, RUQ), normal bowel sounds. Absent: guarding, rebound, rigid - Neurological Exam Neurological exam: Present: alert, oriented X3 - Psychiatric Psychiatric exam: Present: normal affect, normal mood - Skin Skin exam: Present: warm, dry, intact ED Course Vital Signs 04/23/20 19:30 Temperature 98.1 F Pulse Rate 92 H Respiratory 20 Rate Blood Pressure 134/84 O2 Sat by Pulse 94 Oximetry - Consultations Consultation #1: 04/23/20 22:[address] Arce, GI who advised to admit patient to hospitalist service make patient n.p.o. and to start patient on Zosyn, will consult on patient 04/23/20 22:[address] Cortes, hospitalist who will accept and resume care of patient, will admit patient to hospital service, advised to admit to [facility] ED Medical Decision Making - Lab Data Result diagrams: 04/23/20 19:41 04/23/20 19:41 Lab Results 04/23/20 04/23/20 Range/Units 19:41 19:41 WBC 7.4 (4.5-11.0) K/mm3 RBC 4.78 (3.65-5.03) M/mm3 Hgb 15.3 H (11.8-15.2) gm/dl Hct 45.0 (35.5-45.6) % MCV 94 (84-94) fl MCH 32 (28-32) pg MCHC 34 (32-34) % RDW 13.3 (13.2-15.2) % Plt Count 373 (140-440) K/mm3 Lymph % (Auto) 12.1 L (13.4-35.0) % Cotton % (Auto) 8.4 H (0.0-7.3) % Eos % (Auto) 0.5 (0.0-4.3) % Baso % (Auto) 0.1 (0.0-1.8) % Lymph # (Auto) 0.9 L (1.2-5.4) K/mm3 Cotton # (Auto) 0.6 (0.0-0.8) K/mm3 Eos # (Auto) 0.0 (0.0-0.4) K/mm3 Baso # (Auto) 0.0 (0.0-0.1) K/mm3 Seg Neutrophils % 78.9 H (40.0-70.0) % Seg Neutrophils # 5.9 (1.8-7.7) K/mm3 Sodium 140 (137-145) mmol/L Potassium 3.4 L (3.6-5.0) mmol/L Chloride 101.8 (98-107) mmol/L Carbon Dioxide 25 (22-30) mmol/L Anion Gap 17 mmol/L BUN 9 (9-20) mg/dL Creatinine 0.7 L (0.8-1.3) mg/dL Estimated GFR > 60 ml/min BUN/Creatinine Ratio 13 % Glucose 127 H (75-100) mg/dL Calcium 9.8 (8.4-10.2) mg/dL Total Bilirubin 3.10 H (0.1-1.2) mg/dL AST 566 H (5-40) units/L ALT 241 H (7-56) units/L Alkaline Phosphatase 238 H (35-129) units/L Total Protein 8.3 H (6.3-8.2) g/dL Albumin 4.2 (3.9-5) g/dL Albumin/Globulin Ratio 1.0 % Lipase 49 (13-60) units/L - Radiology Data Radiology results: report reviewed Ordering Physician: HIRAM ALTAMIRANO Date of Service: 04/23/20 Procedure(s): CT abdomen pelvis w con Accession Number(s): [id number] cc: HIRAM ALTAMIRANO CT ABDOMEN AND PELVIS WITH CONTRAST INDICATION / CLINICAL INFORMATION: Patient complains of epigastric abd pain with N/V, elevated LFTs. TECHNIQUE: Axial CT images were obtained through the abdomen and pelvis following the administration of intravenous contrast. All CT scans at this location are performed using CT dose reduction for ALARA by means of automated exposure control. COMPARISON: CT abdomen/pelvis dated 04/17/2020. FINDINGS: LOWER CHEST: No significant abnormality. LIVER: 2 cystic structures have developed near the gallbladder fossa. The largest of these measures 2.5 x 2.0 cm. GALLBLADDER/BILE DUCTS: Surgically absent. There is a residual tubular structure which is unchanged from the previous examination. There is a 5 mm calcified stone within the distal common bile duct near the ampulla. PANCREAS: No significant abnormality. SPLEEN: No significant abnormality. ADRENALS: No significant abnormality. KIDNEYS / URETERS: No significant abnormality. URINARY BLADDER: No significant abnormality. REPRODUCTIVE ORGANS: No significant abnormality. STOMACH / SMALL BOWEL: No significant abnormality. COLON: No significant abnormality. APPENDIX: No significant abnormality. PERITONEUM: No free fluid. No free air. No fluid collection. LYMPH NODES: No significant adenopathy. AORTA / ARTERIES: No significant abnormality. IVC / VEINS: No significant abnormality. SKELETAL SYSTEM: No significant abnormality. ADDITIONAL FINDINGS: None. IMPRESSION: 1. Choledocholithiasis. There is a 5 mm stone within the distal common bile duct with dilation of the common bile duct. 2. Cholecystectomy changes with development of 2 small cystic structures within the liver near the gallbladder fossa. These could represent small bilomas in the right clinical setting. A nuclear medicine hepatobiliary scan may provide further information, if felt clinically warranted. Signer Name: Adin Esteves MD Signed: 04/23/2020 10:08 PM Workstation Name: [id number] Transcribed By: SS Dictated By: ADIN ESTEVES Electronically Authenticated By: ADIN ESTEVES Signed Date/Time: 04/23/202207 DD/ 02 TD/TT: - Medical Decision Making Patient is a 29-year-old male who presents emergency room with complaints of epigastric abdominal pain that began at 8 AM this morning. He states that it is a sharp stabbing pain and states that it feels "like a bomb went off in his abdomen." He has associated nausea and vomiting. He states he had approximately 4 episodes of vomiting. Patient was evaluated in the emergency department on 04/18/[address] abdomen pelvis at that time which showed Patient is status post cholecystectomy. The tubular fluid density structure in the gallbladder fossa most likely represents a patulous cystic duct. 2 calcified gallstones are located at the base of the cystic duct, concerning for retained ductal stones. No common bile duct dilatation. His labs were normal at that time and he was admitted to the hospital and seen by GI inpatient who advised patient to follow-up with a hepatobiliary surgeon as an outpatient. He states that he has an appointment with a specialist at [facility] on 04/25/2020. He states that he was discharged with 6 pain tablets but states that the pain today increased and he was unable to get any relief. He states that he was having diarrhea over the last 2 days but that resolved today. He denies any fever, hematochezia, hematemesis, melena, urinary symptoms. He has a past surgical history of cholecystectomy. Past medical history of HIV and reports that he is compliant with his antivirals and states that he has been undetectable. VSS. on exam: epigastric, and RUQ abd ttp, no guarding, no rebound, no rigidity, no peritoneal signs, normal bowel sounds. labs with elevated LFts. CT abd pelvis with IV contrast: 1. Choledocholithiasis. There is a 5 mm stone within the distal common bile duct with dilation of the common bile duct. 2. Cholecystectomy changes with development of 2 small cystic structures within the liver near the gallbladder fossa. These could represent small bilomas in the right clinical setting. A nuclear medicine hepatobiliary scan may provide further information, if felt clinically warranted. Spoke to Dr. Arce, GI who advised to admit patient to hospitalist service make patient n.p.o. and to start patient on Zosyn, will consult on patient. Spoke to Dr. Cortes, hospitalist who will accept and resume care of patient, will admit patient to hospital service, advised to admit to [facility]. pt admitted to hospitalist service. - Differential Diagnosis Choledocholithiasis, cholangitis, pancreatitis, GERD, PUD, gastritis Critical care attestation.: If time is entered above; I have spent that time in minutes in the direct care of this critically ill patient, excluding procedure time. ED Disposition Clinical Impression: Choledocholithiasis, Elevated LFTs Abdominal pain Qualifiers: Abdominal location: epigastric Qualified Code(s): R10.13 - Epigastric pain Nausea & vomiting Qualifiers: Vomiting type: unspecified Vomiting Intractability: non-intractable Qualified Code(s): R11.2 - Nausea with vomiting, unspecified Disposition: 09 OP ADMIT IP TO THIS HOSP Is pt being admited?: Yes Does the pt Need Aspirin: No Condition: Fair Referrals: PRIMARY CARE, [Primary Care Provider] - 3-5 Days Time of Disposition: 22:30 Print Language: SURINAMESE
[2020-04-23] MEDS ORDERED: HYDROmorphone 1 MG/1 ML INJ IV ONE (22:07)
--- NOTE | 2020-04-23 22:13 | Cat Scan Report ---
CT ABDOMEN AND PELVIS WITH CONTRAST INDICATION / CLINICAL INFORMATION: Patient complains of epigastric abd pain with N/V, elevated LFTs. TECHNIQUE: Axial CT images were obtained through the abdomen and pelvis following the administration of intraven ous contrast. All CT scans at this location are performed using CT dose reduction for ALARA by means of automated exposure control. COMPARISON: CT abdomen/pelvis dated 04/17/2020. FINDINGS: LOWER CHEST: No significant abnormality. LIVER: 2 cystic structures have developed near the gallbladder fossa. The largest of these measures 2 .5 x 2.0 cm. GALLBLADDER/BILE DUCTS: Surgically absent. There is a residual tubular structure which is unchanged f rom the previous examination. There is a 5 mm calcified stone within the distal common bile duct near the ampulla. PANCREAS: No significant abnormality. SPLEEN: No significant abnormality. ADRENALS: No significant abnormality. KIDNEYS / URETERS: No significant abnormality. URINARY BLADDER: No significant abnormality. REPRODUCTIVE ORGANS: No significant abnormality. STOMACH / SMALL BOWEL: No significant abnormality. COLON: No significant abnormality. APPENDIX: No significant abnormality. PERITONEUM: No free fluid. No free air. No fluid collection. LYMPH NODES: No significant adenopathy. AORTA / ARTERIES: No significant abnormality. IVC / VEINS: No significant abnormality. SKELETAL SYSTEM: No significant abnormality. ADDITIONAL FINDINGS: None. IMPRESSION: 1. Choledocholithiasis. There is a 5 mm stone within the distal common bile duct with dilation of the common bile duct. 2. Cholecystectomy changes with development of 2 small cystic structures within the liver near the ga llbladder fossa. These could represent small bilomas in the right clinical setting. A nuclear medicin e hepatobiliary scan may provide further information, if felt clinically warranted. Signer Name: Leonides Esteves MD Signed: 04/23/2020 10:08 PM Workstation Name: [id number]
[2020-04-23] MEDS ORDERED: PIPERACIL/TAZOBACTA 4.5/NS 100 4.5 GM/100 ML VIAL IV ONE (22:28)
[2020-04-23] MEDS ORDERED: ACETAMINOPHEN 325 MG TAB PO PRN (23:24)
[2020-04-23] MEDS ORDERED: SODIUM CHLORIDE 0.9% 1000 ML 1,000 ML IV SCH (23:30)
--- NOTE | 2020-04-23 23:31 | History and Physical Report ---
History of Present Illness Date of examination: 04/23/20 Date of admission: 04/23/2020 Chief complaint: Abdominal Pain Nausea and Vomiting. History of present illness: 29-year-old -[place] male with significant history of HIV with undetectable viral load presenting to the emergency room today complaining of abdominal pain which started this morning. Abdominal pain is more in the epigastric region and is said to be stabbing in nature. He has had associated nausea and vomiting. But denies any fever or chills, no chest pain or shortness of breath, no headache or dizziness, no hematuria or dysuria. Patient was recently evaluated in the emergency room on 04/18/[address] of the abdomen and pelvis which showed the following: tubular fluid density structure in the gallbladder fossa most likely represents a patulous cystic duct. 2 calcified gallstones are located at the base of the cystic duct, concerning for retained ductal stones. No common bile duct dilatation. Patient is status post cholecystectomy. His labs were normal at that time and he was admitted to the hospital and seen by GI inpatient who advised patient to follow-up with a hepatobiliary surgeon as an outpatient. Patient has an upcoming appointment at [facility] on . He was discharged home on pain medication however he has not been able to have any relief after taking the medications. Repeat CT of the abdomen and pelvis today reveals :1. Choledocholithiasis. There is a 5 mm stone within the distal common bile duct with dilation of the common bile duct. 2. Cholecystectomy changes with development of 2 small cystic structures within the liver near the gallbladder fossa. These could represent small bilomas in the right clinical setting. A nuclear medicine hepatobiliary scan may provide further information, if felt clinically warranted. Interactive Designer Dr. rAce has been consulted and notified of the above findings. Recommendation is to make patient n.p.o., commence patient on empiric IV antibiotics and patient will be promptly evaluated. 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 Past History Past Medical History: other (HIV +ve CD 4 count within normal limits in 2019,) Past Surgical History: cholecystectomy Social history: smoking (Current daily smoker), alcohol abuse Family history: no significant family history Medications and Allergies Allergies Allergy/AdvReac Type Severity Reaction Status Date / Time No Known Allergies Allergy Verified 05/29/19 12:32 Home Medications Medication Instructions Recorded Confirmed Last Taken Type Ketorolac [Toradol] 10 mg PO Q6H PRN #15 tablet 04/12/19 Unknown Rx methOCARBAMOL [Robaxin] 750 mg PO Q8H PRN #21 tablet 04/12/19 Unknown Rx Benzonatate [Tessalon Perles] 100 mg PO Q8HR #30 capsule 05/07/19 Unknown Rx HYDROcodone/APAP 5-325 [[place] 1 - 2 each PO Q6HR PRN #14 tablet 05/07/19 Unknown Rx 5/325] Ibuprofen [Motrin 800 MG tab] 800 mg PO Q8HR PRN #20 tablet 05/07/19 Unknown Rx Acetaminophen/Codeine [Tylenol 1 tab PO Q6H PRN #12 tab 05/27/19 Unknown Rx /Codeine # 3 tab] Sulfamethoxazole/Trimethoprim 1 each PO BID #14 tablet 05/27/19 Unknown Rx [Bactrim DS TAB] Albuterol Mdi (or & Nicu Only) 2 puff IH QID PRN #8.5 gram 07/29/19 Unknown Rx [ProAir HFA Inhaler] Benzonatate [Tessalon Perles] 100 mg PO Q8HR PRN #30 capsule 07/29/19 Unknown Rx methylPREDNISolone [Medrol 4MG 4 mg PO DAILY #1 tab.ds.pk 07/29/19 Unknown Rx DOSEPAK (21 tabs)] Famotidine [Pepcid] 40 mg PO QHS #14 tablet 10/03/19 Unknown Rx Ondansetron [Zofran Odt] 4 mg PO Q8HR PRN #12 tab.rapdis 10/03/19 Unknown Rx traMADoL [Ultram 50 MG tab] 50 mg PO Q6HR PRN #7 tablet 10/03/19 Unknown Rx Amoxicillin/Potassium Clav 1 each PO BID #16 tablet 04/19/20 Unknown Rx [Augmentin 875-125 Tablet] oxyCODONE /ACETAMINOPHEN [Percocet 1 tab PO Q6H PRN #6 tablet 04/19/20 Unknown Rx 5/325 mg] Review of Systems Constitutional: no fever, no chills Ears, nose, mouth and throat: no nasal congestion, no sore throat Cardiovascular: no chest pain, no palpitations Respiratory: no cough, no shortness of breath Gastrointestinal: abdominal pain, nausea, vomiting, diarrhea, no melena Genitourinary Male: no dysuria, no hematuria, no flank pain, no nocturia Musculoskeletal: no neck pain, no low back pain Integumentary: no rash, no pruritis Neurological: no headaches, no confusion Psychiatric: no anxiety, no depression Exam - Constitutional Vitals: Temp Pulse Resp BP Pulse Ox 98.1 F 92 H 20 134/84 94 04/23/20 19:30 04/23/20 19:30 04/23/20 19:30 04/23/20 19:30 04/23/20 19:30 General appearance: Present: no acute distress, well-nourished - EENT Eyes: Present: PERRL, EOM intact. Absent: scleral icterus ENT: hearing intact, clear oral mucosa, dentition normal - Neck Neck: Present: supple, normal ROM - Respiratory Respiratory effort: normal Respiratory: bilateral: CTA - Cardiovascular Rhythm: regular Heart Sounds: Present: S1 & S2. Absent: gallop, systolic murmur, diastolic murmur, rub - Extremities Extremities: no ischemia, pulses intact, pulses symmetrical, No edema, Full ROM Peripheral Pulses: within normal limits - Abdominal General gastrointestinal: Present: soft, tender (Mild tenderness in epigastric region), distended (Mildly distended), normal bowel sounds. Absent: mass - Integumentary Integumentary: Present: clear, warm, dry. Absent: rash - Musculoskeletal Musculoskeletal: strength equal bilaterally - Psychiatric Psychiatric: appropriate mood/affect, intact judgment & insight, memory intact, cooperative - Neurologic Neurologic: CNII-XII intact, no focal deficits, moves all extremities Results - Labs CBC & Chem 7: 04/24/20 05:39 04/23/20 19:41 Labs: Abnormal lab results 04/23/20 04/23/20 Range/Units 19:41 19:41 Hgb 15.3 H (11.8-15.2) gm/dl Lymph % (Auto) 12.1 L (13.4-35.0) % Wallace % (Auto) 8.4 H (0.0-7.3) % Lymph # (Auto) 0.9 L (1.2-5.4) K/mm3 Seg Neutrophils % 78.9 H (40.0-70.0) % Potassium 3.4 L (3.6-5.0) mmol/L Creatinine 0.7 L (0.8-1.3) mg/dL Glucose 127 H (75-100) mg/dL Total Bilirubin 3.10 H (0.1-1.2) mg/dL AST 566 H (5-40) units/L ALT 241 H (7-56) units/L Alkaline Phosphatase 238 H (35-129) units/L Total Protein 8.3 H (6.3-8.2) g/dL Assessment and Plan - Patient Problems (1) Abdominal pain Current Visit: Yes Status: Acute Qualifiers: Abdominal location: epigastric Qualified Code(s): R10.13 - Epigastric pain Plan to address problem: Possibly secondary to the gallstones. Patient placed on IV analgesic medication. (2) Elevated LFTs Current Visit: Yes Status: Acute Plan to address problem: We will monitor liver enzymes. We await further recommendations from gastroenterology. (3) Cholelithiasis Current Visit: No Status: Acute Qualifiers: Cholelithiasis location: bile duct Cholecystitis acuity: acute and chronic Biliary obstruction: without biliary obstruction Plan to address problem: We await further evaluation by gastroenterology. We will continue IV fluid, IV analgesic medication and empiric IV antibiotics. (4) HIV (human immunodeficiency virus infection) Current Visit: No Status: Chronic Qualifiers: HIV symptom status: asymptomatic Qualified Code(s): Z21 - Asymptomatic human immunodeficiency virus [HIV] infection status Plan to address problem: Patient has undetectable viral load. He indicates he follows up with an outpatient infectious disease specialist. CD4 count in 2019 was said to be within normal limits. We will continue routine home medications once reconciled. (5) DVT prophylaxis Current Visit: No Status: Acute Plan to address problem: Patient placed on sequential compression device. (6) Full code status Current Visit: Yes Status: Acute
[2020-04-24] MEDS ORDERED: MORPHINE 2 MG/1 ML INJ ONE (01:04)
[2020-04-24] MEDS: MORPHINE 2 MG/1 ML INJ IV PRN ×2 (01:07→04:20)
[2020-04-24 06:17] LABS: Basophils % (Auto) 0.2 % (0.0-1.8); Eosinophils % (Auto) 0.5 % (0.0-4.3); Hematocrit 39.7 % (35.5-45.6); Lymphocytes # (Auto) 0.7 K/mm3 (1.2-5.4); Lymphocytes % (Auto) 13.4 % (13.4-35.0); Mean Corpuscular HGB Conc 33 % (32-34); Mean Corpuscular Volume 95 fl (84-94); Monocytes # (Auto) 0.4 K/mm3 (0.0-0.8); Monocytes % (Auto) 7.3 % (0.0-7.3); Platelet Count 278 K/mm3 (140-440); Red Blood Count 4.17 M/mm3 (3.65-5.03); Red Cell Distribution Width 13.4 % (13.2-15.2)
[2020-04-24 06:28] LABS: INR 1.11 (0.87-1.13)
[2020-04-24] MEDS ORDERED: HYDROmorphone 1 MG/1 ML INJ IV ONE ×2 (06:30→09:29)
[2020-04-24 06:32] LABS: Blood Urea Nitrogen 5 mg/dL (9-20); Calcium 8.6 mg/dL (8.4-10.2); Hemolysis Index 3
[2020-04-24] MEDS: PIPERACIL/TAZOBACTA 4.5/NS 100 4.5 GM/100 ML VIAL IV SCH ×3 (06:37→21:30)
[2020-04-24 06:46] LABS: BUN/Creatinine Ratio 7
[2020-04-24] MEDS: ONDANSETRON 4 MG/2 ML INJ IV PRN (11:58)
[2020-04-24] MEDS: HYDROmorphone 1 MG/1 ML INJ IV PRN (11:59)
--- NOTE | 2020-04-24 17:23 | Gastroenterology Consultation ---
History of Present Illness - Reason for Consult Consult date: 04/24/20 abd pain and choledocholithiasis Requesting physician: TERESA STEELE - History of Present Illness Patient is a 29-year-old male who presents emergency room with complaints of epigastric abdominal pain Duration 1 day. Severe, sharp, epigastric, radiates diffusely to the rest of the abdomen, associated with nausea and vomiting, slightly better with pain medications, worse with palpation or eating. Worsening. Was seen last week for milder symptoms found to have gallstone of the base of the cystic duct however was referred for outpatient spyglass. Patient however comes in now because his symptoms are much worse He has a past surgical history of cholecystectomy. Past medical history of H IV and reports that he is compliant with his antivirals and states that he has been undetectable. Obtained/updated/reviewed patient's current medications Past History Past Medical History: HIV/AIDS, other (HIV +ve CD 4 count within normal limits in 2019,) Past Surgical History: cholecystectomy Social history: smoking (Current daily smoker), alcohol abuse Family history: no significant family history Medications and Allergies Allergies Allergy/AdvReac Type Severity Reaction Status Date / Time No Known Allergies Allergy Verified 05/29/19 12:32 Home Medications Medication Instructions Recorded Confirmed Last Taken Type Ketorolac [Toradol] 10 mg PO Q6H PRN #15 tablet 04/12/19 Unknown Rx methOCARBAMOL [Robaxin] 750 mg PO Q8H PRN #21 tablet 04/12/19 Unknown Rx Benzonatate [Tessalon Perles] 100 mg PO Q8HR #30 capsule 05/07/19 Unknown Rx HYDROcodone/APAP 5-325 [[place] 1 - 2 each PO Q6HR PRN #14 tablet 05/07/19 Unknown Rx 5/325] Ibuprofen [Motrin 800 MG tab] 800 mg PO Q8HR PRN #20 tablet 05/07/19 Unknown Rx Acetaminophen/Codeine [Tylenol 1 tab PO Q6H PRN #12 tab 05/27/19 Unknown Rx /Codeine # 3 tab] Sulfamethoxazole/Trimethoprim 1 each PO BID #14 tablet 05/27/19 Unknown Rx [Bactrim DS TAB] Albuterol Mdi (or & Nicu Only) 2 puff IH QID PRN #8.5 gram 07/29/19 Unknown Rx [ProAir HFA Inhaler] Benzonatate [Tessalon Perles] 100 mg PO Q8HR PRN #30 capsule 07/29/19 Unknown Rx methylPREDNISolone [Medrol 4MG 4 mg PO DAILY #1 tab.ds.pk 07/29/19 Unknown Rx DOSEPAK (21 tabs)] Famotidine [Pepcid] 40 mg PO QHS #14 tablet 10/03/19 Unknown Rx Ondansetron [Zofran Odt] 4 mg PO Q8HR PRN #12 tab.rapdis 10/03/19 Unknown Rx traMADoL [Ultram 50 MG tab] 50 mg PO Q6HR PRN #7 tablet 10/03/19 Unknown Rx Amoxicillin/Potassium Clav 1 each PO BID #16 tablet 04/19/20 Unknown Rx [Augmentin 875-125 Tablet] oxyCODONE /ACETAMINOPHEN [Percocet 1 tab PO Q6H PRN #6 tablet 04/19/20 Unknown Rx 5/325 mg] Active Meds: Active Medications Acetaminophen (Tylenol) 650 mg PO Q4H PRN PRN Reason: Pain MILD(1-3)/Fever >100.5/STEPHEN Hydromorphone HCl (Dilaudid) 0.5 mg IV Q3H PRN PRN Reason: Pain , Severe (7-10) Last Admin: 04/24/20 11:59 Dose: 0.5 mg Documented by: Sodium Chloride (Nacl 0.9% 1000 Ml) 1,000 mls @ 125 mls/hr IV DIRECT TONY Last Admin: 04/24/20 02:21 Dose: 125 mls/hr Documented by: Piperacillin Sod/Tazobactam Sod (Zosyn/Ns 4.5gm/100ml) 4.5 gm in 100 mls @ 200 mls/hr IV Q8HR TONY; Protocol Last Admin: 04/24/20 14:20 Dose: 200 mls/hr Documented by: Morphine Sulfate (Morphine) 2 mg IV Q4H PRN PRN Reason: Pain, Moderate (4-6) Last Admin: 04/24/20 04:20 Dose: 2 mg Documented by: Ondansetron HCl (Zofran) 4 mg IV Q8H PRN PRN Reason: Nausea And Vomiting Last Admin: 04/24/20 11:58 Dose: 4 mg Documented by: Sodium Chloride (Sodium Chloride Flush Syringe 10 Ml) 10 ml IV BID TONY Last Admin: 04/24/20 12:01 Dose: 10 ml Documented by: Sodium Chloride (Sodium Chloride Flush Syringe 10 Ml) 10 ml IV PRN PRN PRN Reason: LINE FLUSH Review of Systems - Review of Systems All systems: negative (10 Systems reviewed and negative except as mentioned above in the history of present illness) Exam - Constitutional Vital Signs: Temp Pulse Resp BP Pulse Ox 98.5 F 79 20 121/79 95 04/24/20 16:05 04/24/20 16:05 04/24/20 16:05 04/24/20 16:05 04/24/20 16:05 General appearance: mild distress - EENT Eyes: EOM intact - Neck Neck: supple - Respiratory Respiratory effort: normal - Cardiovascular Rhythm: regular - Gastrointestinal General gastrointestinal: Present: soft, tender - Integumentary Integumentary: Present: dry - Neurologic Neurological: alert and oriented x3 - Psychiatric Psychiatric: appropriate mood/affect - Labs CBC & Chem 7: 04/24/20 05:39 04/24/20 05:39 Lab Results: Laboratory Results - last 24 hr 04/23/20 04/23/20 04/24/20 19:41 19:41 05:39 WBC 7.4 5.3 RBC 4.78 4.17 Hgb 15.3 H 13.0 Hct 45.0 39.7 MCV 94 95 H MCH 32 31 MCHC 34 33 RDW 13.3 13.4 Plt Count 373 278 Lymph % (Auto) 12.1 L 13.4 [place] % (Auto) 8.4 H 7.3 Eos % (Auto) 0.5 0.5 Baso % (Auto) 0.1 0.2 Lymph # (Auto) 0.9 L 0.7 L [place] # (Auto) 0.6 0.4 Eos # (Auto) 0.0 0.0 Baso # (Auto) 0.0 0.0 Seg Neutrophils % 78.9 H 78.6 H Seg Neutrophils # 5.9 4.1 PT INR Sodium 140 Potassium 3.4 L Chloride 101.8 Carbon Dioxide 25 Anion Gap 17 BUN 9 Creatinine 0.7 L Estimated GFR > 60 BUN/Creatinine Ratio 13 Glucose 127 H Calcium 9.8 Total Bilirubin 3.10 H AST 566 H ALT 241 H Alkaline Phosphatase 238 H Total Protein 8.3 H Albumin 4.2 Albumin/Globulin Ratio 1.0 Lipase 49 04/24/20 04/24/20 05:39 05:39 WBC RBC Hgb Hct MCV MCH MCHC RDW Plt Count Lymph % (Auto) [place] % (Auto) Eos % (Auto) Baso % (Auto) Lymph # (Auto) [place] # (Auto) Eos # (Auto) Baso # (Auto) Seg Neutrophils % Seg Neutrophils # PT 14.2 INR 1.11 Sodium 140 Potassium 3.3 L Chloride 102.9 Carbon Dioxide 25 Anion Gap 15 BUN 5 L Creatinine 0.7 L Estimated GFR > 60 BUN/Creatinine Ratio 7 Glucose 120 H Calcium 8.6 Total Bilirubin AST ALT Alkaline Phosphatase Total Protein Albumin Albumin/Globulin Ratio Lipase Assessment and Plan Patient with choledocholithiasis on imaging confirmed by labs. Therefore, patient will require ERCP for definitive management of the stones. Case was discussed with advanced endoscopy, patient is scheduled for ERCP tomorrow morning. Patient may have ice chips and clears today but will require n.p.o. past midnight for the procedure tomorrow - Patient Problems (1) Abdominal pain Current Visit: Yes Status: Acute Qualifiers: Abdominal location: epigastric Qualified Code(s): R10.13 - Epigastric pain (2) Choledocholithiasis Current Visit: Yes Status: Acute (3) Elevated LFTs Current Visit: Yes Status: Acute (4) Nausea & vomiting Current Visit: Yes Status: Acute Qualifiers: Vomiting type: unspecified Vomiting Intractability: non-intractable Qualified Code(s): R11.2 - Nausea with vomiting, unspecified
[2020-04-25] MEDS: HYDROmorphone 1 MG/1 ML INJ IV PRN ×4 (01:48→22:14)
[2020-04-25] MEDS: ONDANSETRON 4 MG/2 ML INJ IV PRN (01:50)
[2020-04-25] MEDS: PIPERACIL/TAZOBACTA 4.5/NS 100 4.5 GM/100 ML VIAL IV SCH ×3 (05:31→21:15)
[2020-04-25] MEDS ORDERED: SODIUM CHLORIDE 0.9% 1000 ML 1,000 ML IV SCH (07:30)
[2020-04-25] MEDS ORDERED: SODIUM CHLORIDE 0.9% 1000 ML 1,000 ML ONE (09:04)
[2020-04-25] MEDS ORDERED: SODIUM CHLORIDE 0.9% 100 ML ONE (09:04)
--- NOTE | 2020-04-25 09:04 | Anesthesia Consultation ---
Anesthesia Consult and Med Hx Date of service: 04/25/20 - Airway Anesthetic Teeth Evaluation: Good ROM Head & Neck: Adequate Mental/Hyoid Distance: Adequate Mallampati Class: Class III Intubation Access Assessment: Possibly Difficult - Pulmonary Exam CTA: Yes - Cardiac Exam Cardiac Exam: RRR - Pre-Operative Health Status ASA Pre-Surgery Classification: ASA3 Proposed Anesthetic Plan: MAC - Pulmonary Hx Smoking: Yes Hx Respiratory Symptoms: No - Cardiovascular System Hx Hypertension: No - Central Nervous System CVA: No - Gastrointestinal Hx Gastroesophageal Reflux Disease: No - Endocrine Hx Renal Disease: No Hx Liver Disease: No Hx Insulin Dependent Diabetes: No Hx Non-Insulin Dependent Diabetes: No Hx Thyroid Disease: No - Other Systems Hx Obesity: Yes (BMI 34) - Additional Comments Anesthesia Medical History Comments: PMH HIV compliant with ARVs, viral load undetectable per patient. No hx anesthetic complications.
--- NOTE | 2020-04-25 09:05 | Anesthesia Day of Surgery ---
Anesthesia Day of Surgery - Day of Surgery Patient Examined: Yes Patient H&P Reviewed: Yes Patient is NPO: Yes
[2020-04-25] MEDS ORDERED: MIDAZOLAM 2 MG/2 ML INJ ONE (09:20)
[2020-04-25] MEDS ORDERED: HYDROmorphone 1 MG/1 ML INJ ONE (09:20)
[2020-04-25] MEDS ORDERED: propofoL 200 MG/20 ML VIAL IV ONE (09:20)
[2020-04-25] MEDS ORDERED: LIDOCAINE MPF (2%) 20 MG/1 ML VIAL 5 ML ONE (09:21)
--- NOTE | 2020-04-25 10:45 | Post Operative Note ---
Pre-op diagnosis: CBD stone Post-op diagnosis: other (Likely papillary stenosis, no CBD or cystic duct stone noted, small gallbladder type structure noted) Findings: 1. Normal major papilla, difficult cannulation. 2. CBD normal at ~ 5 mm, no filling defects noted. 6 mm sphincterotomy done and CBD swept x 2 with no stone return noted. 3. Cystic duct patent, with small sac at proximal end consistent with retained gallbladder or fragment. Procedure: ERCP with sphincterotomy Anesthesia: MAC Surgeon: KAT COSBY Estimated blood loss: none Pathology: none Condition: stable Disposition: floor (1. Monitor for complications, and monitor LFTs for resolution. 2. May need to reassess gallbladder fragment/residual for further management if pt has problems in the future.)
--- NOTE | 2020-04-25 11:16 | Operative Report ---
ERCP REPORT PROCEDURE: ERCP with sphincterotomy. PREOPERATIVE DIAGNOSIS: Stone in bile duct. 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 SEDATION: MAC by Anesthesia. HISTORY: The patient is a 29-year-old man who is HIV positive, but in good control. He states he is status post cholecystectomy. He presented with abdominal pain and he had presented last week with the same thing. On 04/18, his liver enzymes were normal. On 04/23, he came in with AST of 566, ALT 241, alkaline phosphatase 238 and a total bilirubin of 3.1. CT showed stone in common bile duct distally. DESCRIPTION OF PROCEDURE: Indications, risks, and benefits were explained and consent was obtained. The patient was placed on abdomen on fluoro table and sedated. Video duodenoscope was passed through the mouth and oropharynx into the descending duodenum and then gradually withdrawn with close inspection of mucosa until the major papilla was identified. Selective cannulation of the common bile duct was then achieved using the fusion sphincterotome and guidewire with some difficulty in identifying the orifice. FINDINGS: 1. Normal appearing major papilla, though difficult cannulation in terms of finding the orifice. 2. Normal biliary tree with 5 mm common bile duct. Sphincterotomy performed and duct swept x 2 with 12 mm balloon with no return of any stone noted. Occlusion cholangiogram was normal with no stones identified. 3. Cystic duct was patent with no stones identified. There appeared to be a sac at the end of the cystic duct consistent with retained partial gallbladder. No clearcut stones were identified. The patient tolerated the procedure well without immediate complications. IMPRESSION: 1. Difficult cannulation of the major papilla, suggestive of papillary stenosis. 2. Otherwise, normal biliary tree with no stones identified. 3. Possible retained partial gallbladder. RECOMMENDATIONS: 1. Monitor liver enzymes for resolution and monitor the patient for complications. 2. If has recurrent symptoms, obtain MRCP and consider further surgery to remove remaining gallbladder. JOB# [id number] HRC/NTS
--- NOTE | 2020-04-25 11:59 | Post Anesthesia Evaluation ---
- Post Anesthesia Evaluation Patient Participated: Yes Airway Patent: Yes Stable Respiratory Function: Yes Nausea/Vomiting: No Temp > 96.8F: Yes Pain Manageable: Yes Adequeate Hydration: Yes Anesthesia Complications: No
--- NOTE | 2020-04-25 12:42 | Fluoroscopy Report ---
CLINICAL INDICATION: choledocholithiasis TECHNICAL DATA: C-arm imaging was performed 15 images obtained. Fluoroscopy time 1 minute 20 seconds. FINDINGS: Excellent imaging of the biliary duct system noted. No evidence choledocholithiasis. Balloon sweepin g of the common bile duct was performed IMPRESSION: Unremarkable ERCP Signer Name: Rico Kohli MD Signed: 04/25/2020 12:37 PM Workstation Name: [id number]
--- NOTE | 2020-04-25 15:19 | Progress Note ---
Assessment and Plan (1) cystic duct with gallstones Patient was recently admitted and discharged Patient has recurrent right upper quadrant pain possibly secondary to gallstones passing through the bile duct (2) Elevated LFTs Current Visit: Yes Status: Acute Plan to address problem: Possibly secondary to bile duct stones causing obstruction and increased liver enzymes LFTs still high We will keep the patient overnight and if LFTs are coming down we will discharge the patient (3) Choledocholithiasis Current Visit: No Status: Acute Qualifiers: Cholelithiasis location: bile duct Cholecystitis acuity: acute and chronic Biliary obstruction: without biliary obstruction Plan to address problem: ERCP negative for bile duct stones 1. Normal major papilla, difficult cannulation. 2. CBD normal at ~ 5 mm, no filling defects noted. 6 mm sphincterotomy done and CBD swept x 2 with no stone return noted. 3. Cystic duct patent, with small sac at proximal end consistent with retained gallbladder or fragment. Procedure: ERCP with sphincterotomy (4) HIV (human immunodeficiency virus infection) Current Visit: No Status: Chronic Qualifiers: HIV symptom status: asymptomatic Qualified Code(s): Z21 - Asymptomatic human immunodeficiency virus [HIV] infection status Plan to address problem: Patient has undetectable viral load. He indicates he follows up with an outpatient infectious disease specialist. CD4 count in 2019 was said to be within normal limits. We will continue routine home medications once reconciled. (5) DVT prophylaxis Current Visit: No Status: Acute Plan to address problem: Patient placed on sequential compression device. (6) Full code status Current Visit: Yes Status: Acute Subjective Date of service: 04/25/20 Principal diagnosis: Choledocholithiasis Interval history: 29-year-old -[place] male with significant history of HIV with undetectable viral load presenting to the emergency room today complaining of abdominal pain which started this morning. Abdominal pain is more in the epigastric region and is said to be stabbing in nature. He has had associated nausea and vomiting. But denies any fever or chills, no chest pain or shortness of breath, no headache or dizziness, no hematuria or dysuria. Patient was recently evaluated in the emergency room on 04/18/[address] of the abdomen and pelvis which showed the following: tubular fluid density structure in the gallbladder fossa most likely represents a patulous cystic duct. 2 calcified gallstones are located at the base of the cystic duct, concerning for retained ductal stones. No common bile duct dilatation. Patient is status post cholecystectomy. His labs were normal at that time and he was admitted to the hospital and seen by GI inpatient who advised patient to follow-up with a hepatobiliary surgeon as an outpatient. Patient has an upcoming appointment at [facility] on 04/25/2020. He was discharged home on pain medication however he has not been able to have any relief after taking the medications. Repeat CT of the abdomen and pelvis today reveals :1. Choledocholithiasis. There is a 5 mm stone within the distal common bile duct with dilation of the common bile duct. 2. Cholecystectomy changes with development of 2 small cystic structures within the liver near the gallbladder fossa. These could represent small bilomas in the right clinical setting. A nuclear medicine hepatobiliary scan may provide further information, if felt clinically warranted. Liturgical Music Director Dr. Arce has been consulted and notified of the above findings. Recommendation is to make patient n.p.o., commence patient on empiric IV antibiotics and patient will be promptly evaluated. 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 Day #2 April 24, 2020 Patient continues to have right upper quadrant pain Possibly secondary to choledocholithiasis Day #3 2019 Patient had ERCP No common bile duct stones Probably passed LFTs 9 Objective - Constitutional Vitals: Vital Signs - 12hr 04/25/20 04/25/20 04/25/20 04:09 07:13 07:29 Temperature 98.4 F 98.3 F Pulse Rate 75 74 Respiratory 18 15 Rate Blood Pressure 98/47 103/50 O2 Sat by Pulse 91 87 97 Oximetry 04/25/20 04/25/20 04/25/20 09:25 10:43 10:45 Temperature 98.2 F 98.2 F Pulse Rate 63 68 68 Respiratory 15 16 15 Rate Blood Pressure 112/68 120/74 111/73 O2 Sat by Pulse 96 96 96 Oximetry 04/25/20 04/25/20 04/25/20 10:50 10:55 11:10 Temperature Pulse Rate 65 63 72 Respiratory 14 15 14 Rate Blood Pressure 111/65 112/68 114/62 O2 Sat by Pulse 96 96 96 Oximetry 04/25/20 04/25/20 04/25/20 11:25 11:28 11:30 Temperature 98.2 F 98.3 F 97.9 F Pulse Rate 70 55 L 57 L Respiratory 16 20 16 Rate Blood Pressure 118/65 125/83 125/83 O2 Sat by Pulse 96 95 95 Oximetry General appearance: Present: no acute distress, well-nourished - EENT Eyes: PERRL, EOM intact ENT: hearing intact, clear oral mucosa Ears: bilateral: normal - Neck Neck: supple, normal ROM - Respiratory Respiratory effort: normal Respiratory: bilateral: CTA - Breasts Breasts: normal - Cardiovascular Heart rate: 787 Rhythm: regular Heart Sounds: Present: S1 & S2. Absent: gallop, rub Extremities: pulses intact, No edema, normal color, Full ROM - Gastrointestinal General gastrointestinal: Present: soft, non-tender, non-distended, normal bowel sounds - Genitourinary Male genitourinary: normal - Integumentary Integumentary: clear, warm, dry - Musculoskeletal Musculoskeletal: 1, strength equal bilaterally - Neurologic Neurologic: moves all extremities - Psychiatric Psychiatric: memory intact, appropriate mood/affect, intact judgment & insight - Labs CBC & Chem 7: 04/26/20 05:57 04/26/20 05:57
[2020-04-26] MEDS: HYDROmorphone 1 MG/1 ML INJ IV PRN (01:37)
[2020-04-26] MEDS: PIPERACIL/TAZOBACTA 4.5/NS 100 4.5 GM/100 ML VIAL IV SCH (06:12)
[2020-04-26 06:25] LABS: Basophils % (Auto) 0.4 % (0.0-1.8); Eosinophils # (Auto) 0.1 K/mm3 (0.0-0.4); Eosinophils % (Auto) 1.3 % (0.0-4.3); Hematocrit 36.8 % (35.5-45.6); Hemoglobin 12.4 gm/dl (11.8-15.2); Lymphocytes % (Auto) 25.9 % (13.4-35.0); Mean Corpuscular HGB Conc 34 % (32-34); Mean Corpuscular Volume 95 fl (84-94); Monocytes # (Auto) 0.5 K/mm3 (0.0-0.8); Monocytes % (Auto) 11.7 % (0.0-7.3); Platelet Count 259 K/mm3 (140-440); Red Blood Count 3.89 M/mm3 (3.65-5.03); Red Cell Distribution Width 13.3 % (13.2-15.2)
[2020-04-26 06:43] LABS: Alanine Aminotransferase 372 units/L (7-56); Albumin 3.5 g/dL (3.9-5); Blood Urea Nitrogen 6 mg/dL (9-20); Calcium 8.9 mg/dL (8.4-10.2); Hemolysis Index 4
[2020-04-26 06:46] LABS: BUN/Creatinine Ratio 10
[2020-04-26 07:17] VITALS: BP 114/67
--- NOTE | 2020-04-26 09:05 | Discharge Summary ---
Providers - Providers Date of Admission: 04/24/20 14:59 Date of discharge: 04/26/20 Attending physician: TERESA STEELE 04/23/20 22:29 Consult to Physician [CONS] Stat Comment: Consulting Provider: ION ESPINOZA Physician Instructions: Reason For Exam: Choledocholithiasis, elevated LFTs Primary care physician: MATERIALS PLANNER Hospitalization Condition: Fair Hospital course: 29-year-old -[place]inames[place] male with significant history of HIV with undetectable viral load presenting to the emergency room today complaining of abdominal pain which started this morning. Abdominal pain is more in the epigastric region and is said to be stabbing in nature. He has had associated nausea and vomiting. But denies any fever or chills, no chest pain or shortness of breath, no headache or dizziness, no hematuria or dysuria. Patient was recently evaluated in the emergency room on 04/18/[address] of the abdomen and pelvis which showed the following: tubular fluid density structure in the gallbladder fossa most likely represents a patulous cystic duct. 2 calcified gallstones are located at the base of the cystic duct, concerning for retained ductal stones. No common bile duct dilatation. Patient is status post cholecystectomy. His labs were normal at that time and he was admitted to the hospital and seen by GI inpatient who advised patient to follow-up with a hepatobiliary surgeon as an outpatient. Patient has an upcoming appointment at [facility] on 04/25/2020. He was discharged home on pain medication however he has not been able to have any relief after taking the medications. Repeat CT of the abdomen and pelvis today reveals :1. Choledocholithiasis. There is a 5 mm stone within the distal common bile duct with dilation of the common bile duct. 2. Cholecystectomy changes with development of 2 small cystic structures within the liver near the gallbladder fossa. These could represent small bilomas in the right clinical setting. A nuclear medicine hepatobiliary scan may provide further information, if felt clinically warranted. Medication Tech Dr. Espinoza has been consulted and notified of the above findings. Recommendation is to make patient n.p.o., commence patient on empiric IV antibiotics and patient will be promptly evaluated. 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 Day #2 April 24, 2020 Patient continues to have right upper quadrant pain Possibly secondary to choledocholithiasis Day #3 04/25 2020 Patient had ERCP No common bile duct stones Probably passed LFTs elevated day #4 04/26/20 LFTs coming down Patient able to eat Assessment and Plan (1) cystic duct with gallstones Patient was recently admitted and discharged Patient has recurrent right upper quadrant pain possibly secondary to gallstones passing through the bile duct Patient is asymptomatic now (2) Elevated LFTs Current Visit: Yes Status: Acute Plan to address problem: Possibly secondary to bile duct stones causing obstruction and increased liver enzymes LFTs coming down (3) Choledocholithiasis Current Visit: No Status: Acute Qualifiers: Cholelithiasis location: bile duct Cholecystitis acuity: acute and chronic Biliary obstruction: without biliary obstruction Plan to address problem: ERCP negative for bile duct stones 1. Normal major papilla, difficult cannulation. 2. CBD normal at ~ 5 mm, no filling defects noted. 6 mm sphincterotomy done and CBD swept x 2 with no stone return noted. 3. Cystic duct patent, with small sac at proximal end consistent with retained gallbladder or fragment. Procedure: ERCP with sphincterotomy (4) HIV (human immunodeficiency virus infection) Current Visit: No Status: Chronic Qualifiers: HIV symptom status: asymptomatic Qualified Code(s): Z21 - Asymptomatic human immunodeficiency virus [HIV] infection status Plan to address problem: Patient has undetectable viral load. He indicates he follows up with an outpatient infectious disease specialist. CD4 count in 2019 was said to be within normal limits. We will continue routine home medications once reconciled. (5) DVT prophylaxis Current Visit: No Status: Acute Plan to address problem: Patient placed on sequential compression device. (6) Full code status Current Visit: Yes Status: Acute Subjective Date of service: 04/25/20 Principal diagnosis: Choledocholithiasis Interval history: Disposition: DC-01 TO HOME OR SELFCARE Time spent for discharge: 35 minutes - Discharge Diagnoses (1) Choledocholithiasis Status: Acute (2) Elevated LFTs Status: Acute (3) Biliary colic Status: Acute (4) Cholelithiasis Status: Acute Qualifiers: Cholelithiasis location: bile duct Cholecystitis acuity: acute and chronic Biliary obstruction: without biliary obstruction (5) DVT prophylaxis Status: Acute Core Measure Documentation - Palliative Care Palliative Care/ Comfort Measures: Not Applicable - Core Measures Any of the following diagnoses?: none Exam - Constitutional Vitals: Temp Pulse Resp BP Pulse Ox 97.0 F L 70 16 114/67 93 04/26/20 07:08 04/26/20 07:08 04/26/20 07:08 04/26/20 07:08 04/26/20 07:08 General appearance: Present: no acute distress, well-nourished - EENT Eyes: Present: PERRL ENT: hearing intact, clear oral mucosa - Neck Neck: Present: supple, normal ROM - Respiratory Respiratory effort: normal Respiratory: bilateral: CTA - Cardiovascular Heart rate: 78 Rhythm: regular Heart Sounds: Present: S1 & S2. Absent: rub, click - Extremities Extremities: pulses symmetrical, No edema Peripheral Pulses: within normal limits - Abdominal General gastrointestinal: Present: soft, non-tender, non-distended, normal bowel sounds Male genitourinary: Present: normal - Integumentary Integumentary: Present: clear, warm, dry - Musculoskeletal Musculoskeletal: gait normal, strength equal bilaterally - Psychiatric Psychiatric: appropriate mood/affect, intact judgment & insight - Neurologic Neurologic: CNII-XII intact, moves all extremities Plan Activity: no restrictions Diet: regular, clear liquids Follow up with: PRIMARY CARE, [Primary Care Provider] - 3-5 Days KAT COSBY MD [Staff Physician] - 7 Days Prescriptions: Famotidine [Pepcid] 40 mg PO QHS #30 tablet methOCARBAMOL [Robaxin TAB] 750 mg PO Q8H PRN #21 tablet PRN Reason: Spasms traMADoL [Ultram 50 MG tab] 50 mg PO Q6HR PRN #12 tablet PRN Reason: Pain , Severe (7-10)
--- NOTE | 2020-04-26 10:24 | Gastroenterology Progress Note ---
Assessment and Plan 1. Abnormal liver enzymes with cbd stone on imaging - s/p ERCP, no biliary obstruction/retained stone seen. abd symptoms now resolved. liver enzymes stable (total bilirubin decreasing, ALT higher today). pt to be discharged today, f/u for labs in 1-2 weeks. Subjective Date of service: 04/26/20 Principal diagnosis: CBD stone, elevated liver enzymes Interval history: pt ate pizza last night and breakfast this morning w/o issues, denies abd pain, n/v, fevers/chills Objective - Constitutional Vitals: Temp Pulse Resp BP Pulse Ox 97.0 F L 70 16 114/67 93 04/26/20 07:08 04/26/20 07:08 04/26/20 07:08 04/26/20 07:08 04/26/20 07:08 General appearance: no acute distress - Respiratory Respiratory effort: normal Respiratory: bilateral: CTA - Cardiovascular Rhythm: regular Heart Sounds: Present: S1 & S2 - Gastrointestinal General gastrointestinal: Present: soft, non-tender, non-distended - Neurologic Neurological: alert and oriented x3 - Labs CBC & Chem 7: 04/26/20 05:57 04/26/20 05:57 Labs: Laboratory Results - last 24 hr 04/26/20 04/26/20 05:57 05:57 WBC 3.9 L RBC 3.89 Hgb 12.4 Hct 36.8 MCV 95 H MCH 32 MCHC 34 RDW 13.3 Plt Count 259 Lymph % (Auto) 25.9 [place] % (Auto) 11.7 H Eos % (Auto) 1.3 Baso % (Auto) 0.4 Lymph # (Auto) 1.0 L [place] # (Auto) 0.5 Eos # (Auto) 0.1 Baso # (Auto) 0.0 Seg Neutrophils % 60.7 Seg Neutrophils # 2.4 Sodium 142 Potassium 3.5 L Chloride 105.4 Carbon Dioxide 27 Anion Gap 13 BUN 6 L Creatinine 0.6 L Estimated GFR > 60 BUN/Creatinine Ratio 10 Glucose 103 H Calcium 8.9 Total Bilirubin 1.60 H AST 293 H ALT 372 H Alkaline Phosphatase 275 H Total Protein 6.7 Albumin 3.5 L Albumin/Globulin Ratio 1.1
--- NOTE | 2020-04-26 13:30 | Progress Note ---
Assessment and Plan (1) cystic duct with gallstones Patient was recently admitted and discharged Patient has recurrent right upper quadrant pain possibly secondary to gallstones passing through the bile duct (2) Elevated LFTs Current Visit: Yes Status: Acute Plan to address problem: Possibly secondary to bile duct stones causing obstruction and increased liver enzymes (3) Choledocholithiasis Current Visit: No Status: Acute Qualifiers: Cholelithiasis location: bile duct Cholecystitis acuity: acute and chronic Biliary obstruction: without biliary obstruction Plan to address problem: For possible ERCP tomorrow (4) HIV (human immunodeficiency virus infection) Current Visit: No Status: Chronic Qualifiers: HIV symptom status: asymptomatic Qualified Code(s): Z21 - Asymptomatic human immunodeficiency virus [HIV] infection status Plan to address problem: Patient has undetectable viral load. He indicates he follows up with an outpatient infectious disease specialist. CD4 count in 2019 was said to be within normal limits. We will continue routine home medications once reconciled. (5) DVT prophylaxis Current Visit: No Status: Acute Plan to address problem: Patient placed on sequential compression device. (6) Full code status Current Visit: Yes Status: Acute Subjective Date of service: 04/24/20 Principal diagnosis: CBD stone, elevated liver enzymes Interval history: 29-year-old -[place] male with significant history of HIV with undetectable viral load presenting to the emergency room today complaining of abdominal pain which started this morning. Abdominal pain is more in the epigastric region and is said to be stabbing in nature. He has had associated nausea and vomiting. But denies any fever or chills, no chest pain or shortness of breath, no headache or dizziness, no hematuria or dysuria. Patient was recently evaluated in the emergency room on 04/18/[address] of the abdomen and pelvis which showed the following: tubular fluid density structure in the gallbladder fossa most likely represents a patulous cystic duct. 2 calcified gallstones are located at the base of the cystic duct, concerning for retained ductal stones. No common bile duct dilatation. Patient is status post cholecystectomy. His labs were normal at that time and he was admitted to the hospital and seen by GI inpatient who advised patient to follow-up with a hepatobiliary surgeon as an outpatient. Patient has an upcoming appointment at [facility] on 04/25/2020. He was discharged home on pain medication however he has not been able to have any relief after taking the medications. Repeat CT of the abdomen and pelvis today reveals :1. Choledocholithiasis. There is a 5 mm stone within the distal common bile duct with dilation of the common bile duct. 2. Cholecystectomy changes with development of 2 small cystic structures within the liver near the gallbladder fossa. These could represent small bilomas in the right clinical setting. A nuclear medicine hepatobiliary scan may provide further information, if felt clinically warranted. [employer] Dr. Arce has been consulted and notified of the above findings. Recommendation is to make patient n.p.o., commence patient on empiric IV antibiotics and patient will be promptly evaluated. 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 Day #2 April 24, 2020 Patient continues to have right upper quadrant pain Possibly secondary to choledocholithiasis Objective - Constitutional Vitals: Vital Signs - 12hr 04/26/20 04/26/20 04/26/20 01:37 05:39 07:08 Temperature 98.0 F 97.0 F L Pulse Rate 71 70 Respiratory 20 18 16 Rate Blood Pressure 93/51 114/67 O2 Sat by Pulse 90 93 Oximetry General appearance: Present: no acute distress, well-nourished - EENT Eyes: PERRL, EOM intact ENT: hearing intact, clear oral mucosa Ears: bilateral: normal - Neck Neck: supple, normal ROM - Respiratory Respiratory effort: normal Respiratory: bilateral: CTA - Breasts Breasts: normal - Cardiovascular Heart rate: 78 Rhythm: regular Heart Sounds: Present: S1 & S2. Absent: gallop, rub Extremities: pulses intact, No edema, normal color, Full ROM - Gastrointestinal General gastrointestinal: Present: soft, non-tender, non-distended, normal bowel sounds Localized gastrointestinal: tender: RUQ - Genitourinary Male genitourinary: normal - Integumentary Integumentary: clear, warm, dry - Musculoskeletal Musculoskeletal: 1, strength equal bilaterally - Neurologic Neurologic: moves all extremities - Psychiatric Psychiatric: memory intact, appropriate mood/affect, intact judgment & insight - Labs CBC & Chem 7: 04/26/20 05:57 04/26/20 05:57 Labs: Abnormal lab results 04/26/20 04/26/20 Range/Units 05:57 05:57 WBC 3.9 L (4.5-11.0) K/mm3 MCV 95 H (84-94) fl [place] % (Auto) 11.7 H (0.0-7.3) % Lymph # (Auto) 1.0 L (1.2-5.4) K/mm3 Potassium 3.5 L (3.6-5.0) mmol/L BUN 6 L (9-20) mg/dL Creatinine 0.6 L (0.8-1.3) mg/dL Glucose 103 H (75-100) mg/dL Total Bilirubin 1.60 H (0.1-1.2) mg/dL AST 293 H (5-40) units/L ALT 372 H (7-56) units/L Alkaline Phosphatase 275 H (35-129) units/L Albumin 3.5 L (3.9-5) g/dL
== END 2020-04-26 14:05 | disposition home or self-care (01) | DRG 445 ==
LOC: ED 19:22 → 3A 22:47 → 3B-SURG 23:35 → OBSVTOIN 04-24 14:59
PROVIDERS: ADMIT Internal Medicine Geriatric Medicine; ATTEND Internal Medicine
PROC: 0F798ZZ Dilation of Common Bile Duct, Via Natural or Artificial Opening Endoscopic (ICD-10-PCS; principal; 2020-04-25)
PROC: BF141ZZ Fluoroscopy of Gallbladder, Bile Ducts and Pancreatic Ducts using Low Osmolar Contrast (ICD-10-PCS; 2020-04-25)
DX: K80.70 Calculus of gallbladder and bile duct without cholecystitis without obstruction (principal); B20 Human immunodeficiency virus [HIV] disease; R74.01 Elevation of levels of liver transaminase levels; Z90.49 Acquired absence of other specified parts of digestive tract; F17.200 Nicotine dependence, unspecified, uncomplicated; E66.9 Obesity, unspecified; Z68.34 Body mass index [BMI] 34.0-34.9, adult
CPT/HCPCS: 36415; 74177; 74328; 80048; 80053; 83690; 85025; 85610; G0378; C1726; C9113; J1170; J2250; J2270; J2405; J2543; J2704; J7030; Q9967

== ENCOUNTER 2020-12-20 15:31 | Emergency (ER) | payer BC, SELFPAY ==
[2020-12-20] MEDS ORDERED: BENZONATATE 100 MG CAP PO ONE (16:49)
[2020-12-20] MEDS ORDERED: ACETAMINOPHEN 500 MG TAB PO ONE (16:51)
--- NOTE | 2020-12-20 16:54 | Emergency Department Report ---
- General Chief Complaint: Pain General Stated Complaint: COUGHING/FATIGUE/BODY ACHES Time Seen by Provider: 12/20/20 16:40 Source: patient Mode of arrival: Ambulatory Limitations: No Limitations - History of Present Illness Initial Comments: This is a 30-year-old male nontoxic, well nourished in appearance, no acute signs of distress presents to the ED with c/o of productive cough, subjective fever, chills, body aches, rhinorrhea, nasal congestion x several days. Patient describes productive cough as yellow mucus production. Patient agrees to sick contact with cousin which has the flu. Patient denies any recent travels, long car, recent hospital stays. Patient denies any calf pain or calf tenderness. Patient denies any chest pain, short of breath, fever, chills, nausea, vomiting, hemoptysis, numbness, tingling, headache or stiff neck. MD Complaint: fever, cough, rhinorrhea, nasal congestion -: days(s) Severity: mild Severity scale (0 -10): 3 Quality: aching Consistency: constant Improves With: nothing Worsens With: nothing Associated Symptoms: fever, chills, rhinorrhea, nasal congestion, cough. denies: myalgias, diaphoresis, headache, sore throat, stiff neck, chest pain, shortness of breath, abdominal pain, nausea, vomiting, diarrhea, dysuria, rash, confusion, right sweats, weight loss, epistaxis, hoarseness, ear pain Treatments Prior to Arrival: none - Related Data Previous Rx's Medication Instructions Recorded Last Taken Type Ketorolac [Toradol] 10 mg PO Q6H PRN #15 tablet 04/12/19 Unknown Rx Benzonatate [Tessalon Perles] 100 mg PO Q8HR #30 capsule 05/07/19 Unknown Rx HYDROcodone/APAP 5-325 [[place] 1 - 2 each PO Q6HR PRN #14 tablet 05/07/19 Unknown Rx 5/325] Acetaminophen/Codeine [Tylenol 1 tab PO Q6H PRN #12 tab 05/27/19 Unknown Rx /Codeine # 3 tab] Albuterol Mdi (or & Nicu Only) 2 puff IH QID PRN #8.5 gram 07/29/19 Unknown Rx [ProAir HFA Inhaler] Benzonatate [Tessalon Perles] 100 mg PO Q8HR PRN #30 capsule 07/29/19 Unknown Rx Amoxicillin/Potassium Clav 1 each PO BID #16 tablet 04/19/20 Unknown Rx [Augmentin 875-125 Tablet] Famotidine [Pepcid] 40 mg PO QHS #30 tablet 04/26/20 Unknown Rx methOCARBAMOL [Robaxin TAB] 750 mg PO Q8H PRN #21 tablet 04/26/20 Unknown Rx traMADoL [Ultram 50 MG tab] 50 mg PO Q6HR PRN #12 tablet 04/26/20 Unknown Rx Benzonatate [Tessalon Perles] 100 mg PO Q8HR PRN #12 capsule 12/20/20 Unknown Rx Allergies Allergy/AdvReac Type Severity Reaction Status Date / Time No Known Allergies Allergy Verified 12/20/20 16:01 ED Review of Systems ROS: Stated complaint: COUGHING/FATIGUE/BODY ACHES Other details as noted in HPI Comment: All other systems reviewed and negative Constitutional: chills, fever Eyes: denies: eye pain, eye discharge, vision change ENT: congestion. denies: ear pain, throat pain Respiratory: cough. denies: shortness of breath, wheezing Cardiovascular: denies: chest pain, palpitations Endocrine: no symptoms reported Gastrointestinal: denies: abdominal pain, nausea, diarrhea Genitourinary: denies: urgency, dysuria Musculoskeletal: denies: back pain, joint swelling, arthralgia Skin: denies: rash, lesions Neurological: denies: headache, weakness, paresthesias Psychiatric: denies: anxiety, depression Hematological/Lymphatic: denies: easy bleeding, easy bruising ED Past Medical Hx - Past Medical History Hx Hypertension: No Hx Congestive Heart Failure: No Hx Diabetes: No Hx Liver Disease: No Hx Renal Disease: No Hx Asthma: No Hx COPD: No Hx Tuberculosis: No Hx HIV: Yes Additional medical history: Infectious disease process (CD4 WNL Winter 2018) - Surgical History Hx Cholecystectomy: Yes - Social History Smoking Status: Current Every Day Smoker - Medications Home Medications: Home Medications Medication Instructions Recorded Confirmed Last Taken Type Ketorolac [Toradol] 10 mg PO Q6H PRN #15 tablet 04/12/19 Unknown Rx Benzonatate [Tessalon Perles] 100 mg PO Q8HR #30 capsule 05/07/19 Unknown Rx HYDROcodone/APAP 5-325 [[place] 1 - 2 each PO Q6HR PRN #14 tablet 05/07/19 Unknown Rx 5/325] Acetaminophen/Codeine [Tylenol 1 tab PO Q6H PRN #12 tab 05/27/19 Unknown Rx /Codeine # 3 tab] Albuterol Mdi (or & Nicu Only) 2 puff IH QID PRN #8.5 gram 07/29/19 Unknown Rx [ProAir HFA Inhaler] Benzonatate [Tessalon Perles] 100 mg PO Q8HR PRN #30 capsule 07/29/19 Unknown Rx Amoxicillin/Potassium Clav 1 each PO BID #16 tablet 04/19/20 Unknown Rx [Augmentin 875-125 Tablet] Famotidine [Pepcid] 40 mg PO QHS #30 tablet 04/26/20 Unknown Rx methOCARBAMOL [Robaxin TAB] 750 mg PO Q8H PRN #21 tablet 04/26/20 Unknown Rx traMADoL [Ultram 50 MG tab] 50 mg PO Q6HR PRN #12 tablet 04/26/20 Unknown Rx Benzonatate [Tessalon Perles] 100 mg PO Q8HR PRN #12 capsule 12/20/20 Unknown Rx ED Physical Exam - General Limitations: No Limitations General appearance: alert, in no apparent distress - Head Head exam: Present: atraumatic, normocephalic - Eye Eye exam: Present: normal appearance - ENT ENT exam: Present: normal exam, normal orophraynx - Neck Neck exam: Present: normal inspection, full ROM. Absent: lymphadenopathy - Respiratory Respiratory exam: Present: normal lung sounds bilaterally. Absent: respiratory distress, wheezes, rales, rhonchi, stridor, chest wall tenderness, accessory muscle use, decreased breath sounds, prolonged expiratory - Cardiovascular Cardiovascular Exam: Present: regular rate, normal rhythm, normal heart sounds. Absent: bradycardia, tachycardia, irregular rhythm, systolic murmur, diastolic murmur, rubs, gallop - GI/Abdominal GI/Abdominal exam: Present: soft, normal bowel sounds. Absent: distended, tenderness, guarding, rebound, rigid, diminished bowel sounds - Extremities Exam Extremities exam: Present: full ROM - Back Exam Back exam: Present: full ROM - Neurological Exam Neurological exam: Present: alert, oriented X3, normal gait - Psychiatric Psychiatric exam: Present: normal affect, normal mood - Skin Skin exam: Present: warm, dry, intact, normal color. Absent: rash ED Course Vital Signs 12/20/20 16:02 Temperature 99.0 F Pulse Rate 85 Respiratory 18 Rate Blood Pressure 126/75 O2 Sat by Pulse 96 Oximetry - Reevaluation(s) Reevaluation #1: 12/20/20 16:54 Patient is speaking in full sentences with no signs of distress noted. ED Medical Decision Making - Radiology Data [facility] [address] [place] [address] XRay Report Signed Patient: LETICIA DILLARD MR#: [id number] : 1990 Acct:[id number] Age/Sex: 30 / M ADM Date: 12/20/20 Loc: ED Attending Dr: Ordering Physician: DARRIUS GALLARDO NP Date of Service: 12/20/20 Procedure(s): XR chest routine 2V Accession Number(s): [id number] cc: DARRIUS GALLARDO NP Fluoro Time In Minutes: CHEST 2 VIEWS INDICATION / CLINICAL INFORMATION: cough, body aches. FINDINGS: SUPPORT DEVICES: None. HEART / MEDIASTINUM: No significant abnormality. LUNGS / PLEURA: No significant pu lmonary or pleural abnormality. No pneumothorax. ADDITIONAL FINDINGS: No significant additional findings. IMPRESSION: 1. No acute findings. Signer Name: Javi Eastman MD Signed: 12/20/2020 5:06 PM Workstation Name: [id number] Transcribed By: Dictated By: Javi Eastman MD Electronically Authenticated By: Javi Eastman MD Signed Date/Time: 12/20/201705 DD/ 05 TD/TT: - Medical Decision Making This is a 30-year-old male that presents with suspected covid. Patient is stable and was examined by me. Chest x-ray has been obtained and dictated by radiologist with normal exam. Patient is notified of x-ray results with no questions noted. Patient does meet clinical concerns of COVID-19 and patient was instructed and educated on signs and symptoms and to self quarantine and seek medical attention as soon as possible if symptoms worse. Patient was instructed to increase hydration, rest and take Tylenol for fever episodes. Patient rec eived Tylenol and tesslone perrls in the ED. Vitals stable. Patient is nonfebrile and normal heart rate. Patient was instructed Follow-up with a primary care doctor in 3-5 days or if symptoms worsen and continue return to emergency room as soon as possible. At time time of discharge, the patient does not seem toxic or ill in appearance. No acute signs of distress noted. Patient agrees to discharge treatment plan of care. No further questions noted by the patient.nt. Critical care attestation.: If time is entered above; I have spent that time in minutes in the direct care of this critically ill patient, excluding procedure time. ED Disposition Clinical Impression: Suspected COVID-19 virus infection Disposition: DC- TO HOME OR SELFCARE Is pt being admited?: No Does the pt Need Aspirin: No Condition: Stable Instructions: COVID-19 Additional Instructions: Follow-up with a primary care doctor in 3-5 days or if symptoms worsen and continue return to emergency room as soon as possible. Prescriptions: Benzonatate [Tessalon Perles] 100 mg PO Q8HR PRN #12 capsule PRN Reason: cough Referrals: PRIMARY MD APARNA [Referring] - 3-5 Days MING GREENFIELD MD [Staff Physician] - 3-5 Days Time of Disposition: 17:42
--- NOTE | 2020-12-20 17:11 | XRay Report ---
CHEST 2 VIEWS INDICATION / CLINICAL INFORMATION: cough, body aches. FINDINGS: SUPPORT DEVICES: None. HEART / MEDIASTINUM: No significant abnormality. LUNGS / PLEURA: No significant pulmonary or pleural abnormality. No pneumothorax. ADDITIONAL FINDINGS: No significant additional findings. IMPRESSION: 1. No acute findings. Signer Name: Javi Eastman MD Signed: 12/20/2020 5:06 PM Workstation Name: [id number]
[2020-12-20 18:10] VITALS: BP 132/78
== END 2020-12-20 18:00 | disposition home or self-care (01) ==
LOC: ED 15:31
DX: R05 Cough (principal); R53.83 Other fatigue; R09.89 Other specified symptoms and signs involving the circulatory and respiratory systems; R52 Pain, unspecified; F17.200 Nicotine dependence, unspecified, uncomplicated; Z20.822 Contact with and (suspected) exposure to COVID-19; Z79.899 Other long term (current) drug therapy; Z21 Asymptomatic human immunodeficiency virus [HIV] infection status; Z90.49 Acquired absence of other specified parts of digestive tract
CPT/HCPCS: 71046

== ENCOUNTER 2021-01-24 03:35 | Emergency (ER) | payer SELFPAY ==
[2021-01-24 04:54] VITALS: BP 115/83
[2021-01-24] MEDS ORDERED: ACETAMINOPHEN 500 MG TAB PO ONE (05:22)
[2021-01-24] MEDS ORDERED: IBUPROFEN 800 MG TAB PO ONE (05:22)
[2021-01-24] MEDS ORDERED: LIDOCAINE (2%) 20 MG/1 ML VIAL 20 ML MDV INFILTRATI STA (05:28)
[2021-01-24] MEDS ORDERED: oxyCODONE /ACETAMINOPHEN 5-325MG TAB PO ONE (06:15)
--- NOTE | 2021-01-24 06:33 | Emergency Department Report ---
- General Chief complaint: Skin/Abscess/Foreign Body Stated complaint: UNDER ARM ABCESS Time Seen by Provider: 01/24/21 05:24 Source: patient Mode of arrival: Ambulatory Limitations: No Limitations - History of Present Illness Initial comments: 30-year-old Bulgarian male is emergency department with a recurrent right axillary abscess which is reemerge over the past couple days and has been aggressively worsening since the onset having dull throbbing pain which radiates across axilla towards the chest. No fever, chills, sweats no wound discharge presents emergency department requesting incision and drainage. MD complaint: abscess/boil -: Gradual Severity: moderate, severe Quality: aching, dull Consistency: constant Worsens with: palpation, movement Context: none Associated symptoms: chills - Related Data Previous Rx's Medication Instructions Recorded Last Taken Type Ketorolac [Toradol] 10 mg PO Q6H PRN #15 tablet 04/12/19 Unknown Rx Benzonatate [Tessalon Perles] 100 mg PO Q8HR #30 capsule 05/07/19 Unknown Rx HYDROcodone/APAP 5-325 [[place] 1 - 2 each PO Q6HR PRN #14 tablet 05/07/19 Unknown Rx 5/325] Acetaminophen/Codeine [Tylenol 1 tab PO Q6H PRN #12 tab 05/27/19 Unknown Rx /Codeine # 3 tab] Albuterol Mdi (or & Nicu Only) 2 puff IH QID PRN #8.5 gram 07/29/19 Unknown Rx [ProAir HFA Inhaler] Benzonatate [Tessalon Perles] 100 mg PO Q8HR PRN #30 capsule 07/29/19 Unknown Rx Amoxicillin/Potassium Clav 1 each PO BID #16 tablet 04/19/20 Unknown Rx [Augmentin 875-125 Tablet] Famotidine [Pepcid] 40 mg PO QHS #30 tablet 04/26/20 Unknown Rx methOCARBAMOL [Robaxin TAB] 750 mg PO Q8H PRN #21 tablet 04/26/20 Unknown Rx traMADoL [Ultram 50 MG tab] 50 mg PO Q6HR PRN #12 tablet 04/26/20 Unknown Rx Benzonatate [Tessalon Perles] 100 mg PO Q8HR PRN #12 capsule 12/20/20 Unknown Rx Acetaminophen/Codeine [Tylenol #3] 1 tab PO Q6H PRN #15 tab 01/24/21 Unknown Rx Chlorhexidine Gluconate [Hibiclens] 10 ml TP BID #240 liquid 01/24/21 Unknown Rx Ketorolac [Toradol] 10 mg PO Q6H PRN #15 tablet 01/24/21 Unknown Rx Sulfamethoxazole/Trimethoprim 1 each PO BID #30 tablet 01/24/21 Unknown Rx [Bactrim Ds] Allergies Allergy/AdvReac Type Severity Reaction Status Date / Time No Known Allergies Allergy Verified 01/24/21 04:54 Abscess Boil HPI - HPI Chief Complaint: Skin/Abscess/Foreign Body Stated Complaint: UNDER ARM ABCESS Time Seen by Provider: 01/24/21 05:24 Home Medications: Previous Rx's Medication Instructions Recorded Last Taken Type Ketorolac [Toradol] 10 mg PO Q6H PRN #15 tablet 04/12/19 Unknown Rx Benzonatate [Tessalon Perles] 100 mg PO Q8HR #30 capsule 05/07/19 Unknown Rx HYDROcodone/APAP 5-325 [Morgan 1 - 2 each PO Q6HR PRN #14 tablet 05/07/19 Unknown Rx 5/325] Acetaminophen/Codeine [Tylenol 1 tab PO Q6H PRN #12 tab 05/27/19 Unknown Rx /Codeine # 3 tab] Albuterol Mdi (or & Nicu Only) 2 puff IH QID PRN #8.5 gram 07/29/19 Unknown Rx [ProAir HFA Inhaler] Benzonatate [Tessalon Perles] 100 mg PO Q8HR PRN #30 capsule 07/29/19 Unknown Rx Amoxicillin/Potassium Clav 1 each PO BID #16 tablet 04/19/20 Unknown Rx [Augmentin 875-125 Tablet] Famotidine [Pepcid] 40 mg PO QHS #30 tablet 04/26/20 Unknown Rx methOCARBAMOL [Robaxin TAB] 750 mg PO Q8H PRN #21 tablet 04/26/20 Unknown Rx traMADoL [Ultram 50 MG tab] 50 mg PO Q6HR PRN #12 tablet 04/26/20 Unknown Rx Benzonatate [Tessalon Perles] 100 mg PO Q8HR PRN #12 capsule 12/20/20 Unknown Rx Acetaminophen/Codeine [Tylenol #3] 1 tab PO Q6H PRN #15 tab 01/24/21 Unknown Rx Chlorhexidine Gluconate [Hibiclens] 10 ml TP BID #240 liquid 01/24/21 Unknown Rx Ketorolac [Toradol] 10 mg PO Q6H PRN #15 tablet 01/24/21 Unknown Rx Sulfamethoxazole/Trimethoprim 1 each PO BID #30 tablet 01/24/21 Unknown Rx [Bactrim Ds] Allergies/Adverse Reactions: Allergies Allergy/AdvReac Type Severity Reaction Status Date / Time No Known Allergies Allergy Verified 01/24/21 04:54 ED Review of Systems ROS: Stated complaint: UNDER ARM ABCESS Other details as noted in HPI Comment: All other systems reviewed and negative ED Past Medical Hx - Past Medical History Previous Medical History?: Yes Hx Hypertension: No Hx Congestive Heart Failure: No Hx Diabetes: No Hx Liver Disease: No Hx Renal Disease: No Hx Asthma: No Hx COPD: No Hx Tuberculosis: No Hx HIV: Yes Additional medical history: Infectious disease process (CD4 WNL Winter 2018) - Surgical History Past Surgical History?: Yes Hx Cholecystectomy: Yes - Social History Smoking Status: Never Smoker Substance Use Type: None - Medications Home Medications: Home Medications Medication Instructions Recorded Confirmed Last Taken Type Ketorolac [Toradol] 10 mg PO Q6H PRN #15 tablet 04/12/19 Unknown Rx Benzonatate [Tessalon Perles] 100 mg PO Q8HR #30 capsule 05/07/19 Unknown Rx HYDROcodone/APAP 5-325 [Morgan 1 - 2 each PO Q6HR PRN #14 tablet 05/07/19 Unknown Rx 5/325] Acetaminophen/Codeine [Tylenol 1 tab PO Q6H PRN #12 tab 05/27/19 Unknown Rx /Codeine # 3 tab] Albuterol Mdi (or & Nicu Only) 2 puff IH QID PRN #8.5 gram 07/29/19 Unknown Rx [ProAir HFA Inhaler] Benzonatate [Tessalon Perles] 100 mg PO Q8HR PRN #30 capsule 07/29/19 Unknown Rx Amoxicillin/Potassium Clav 1 each PO BID #16 tablet 04/19/20 Unknown Rx [Augmentin 875-125 Tablet] Famotidine [Pepcid] 40 mg PO QHS #30 tablet 04/26/20 Unknown Rx methOCARBAMOL [Robaxin TAB] 750 mg PO Q8H PRN #21 tablet 04/26/20 Unknown Rx traMADoL [Ultram 50 MG tab] 50 mg PO Q6HR PRN #12 tablet 04/26/20 Unknown Rx Benzonatate [Tessalon Perles] 100 mg PO Q8HR PRN #12 capsule 12/20/20 Unknown Rx Acetaminophen/Codeine [Tylenol #3] 1 tab PO Q6H PRN #15 tab 01/24/21 Unknown Rx Chlorhexidine Gluconate [Hibiclens] 10 ml TP BID #240 liquid 01/24/21 Unknown Rx Ketorolac [Toradol] 10 mg PO Q6H PRN #15 tablet 01/24/21 Unknown Rx Sulfamethoxazole/Trimethoprim 1 each PO BID #30 tablet 01/24/21 Unknown Rx [Bactrim Ds] ED Physical Exam - General Limitations: No Limitations General appearance: alert, in no apparent distress - Head Head exam: Present: atraumatic, normocephalic - Eye Eye exam: Present: normal appearance - ENT ENT exam: Present: mucous membranes moist - Neck Neck exam: Present: normal inspection - Respiratory Respiratory exam: Present: normal lung sounds bilaterally. Absent: respiratory distress - Cardiovascular Cardiovascular Exam: Present: regular rate, normal rhythm. Absent: systolic murmur, diastolic murmur, rubs, gallop - GI/Abdominal GI/Abdominal exam: Present: soft, normal bowel sounds - Rectal Rectal exam: Present: deferred - Extremities Exam Extremities exam: Present: normal inspection, tenderness, normal capillary refill, other (Tenderness induration to the right axillary region with palpation. No cellulitis noted. Hidradenitis abscess is present there minimal fluctuance) - Back Exam Back exam: Present: normal inspection - Neurological Exam Neurological exam: Present: alert, oriented X3, CN II-XII intact - Psychiatric Psychiatric exam: Present: normal affect, normal mood - Skin Skin exam: Present: warm, dry, intact, normal color. Absent: rash ED Course Vital Signs 01/24/21 04:50 Temperature 98.9 F Pulse Rate 86 Respiratory 18 Rate Blood Pressure 115/83 [Left] O2 Sat by Pulse 94 Oximetry - Procedure Description Procedures done: PRE-OP DIAGNOSIS: *Abscess. POST-OP DIAGNOSIS: Same. PROCEDURE: incision and drainage of abscess. Performing Physician/advanced practice provider: Jaswinder Torres_. . PROCEDURE: A timeout protocol was performed prior to initiating the procedure. The area was prepared and draped in the usual, sterile manner. The site was anesthetized with 2% lidocaine without epinephrine. A linear incision was along the local skin lines was made and the purulent material expressed. The abcess was explored thoroughly and sequestered pockets were opened. Wound was irrigated with normal saline and bleeding was minimal. Packing: With quarter inch iodoform. . Followup: The patient tolerated the procedure well without complications. Standard post- procedure care is explained and return precautions are given. Critical care attestation.: If time is entered above; I have spent that time in minutes in the direct care of this critically ill patient, excluding procedure time. ED Disposition Clinical Impression: Abscess of axilla, right Disposition: HOME / SELF CARE / HOMELESS Is pt being admited?: No Does the pt Need Aspirin: No Condition: Stable Instructions: Skin Abscess, Incision and Drainage, Care After, Skin Abscess, [id number] Prescriptions: Sulfamethoxazole/Trimethoprim [Bactrim Ds] 1 each PO BID #30 tablet Chlorhexidine Gluconate [Hibiclens] 10 ml TP BID #240 liquid Ketorolac [Toradol] 10 mg PO Q6H PRN #15 tablet PRN Reason: Pain Acetaminophen/Codeine [Tylenol #3] 1 tab PO Q6H PRN #15 tab PRN Reason: Pain Referrals: PRIMARY CARE, [Primary Care Provider] - 3-5 Days TANA WEST DO [Staff Physician] - 3-5 Days
== END 2021-01-24 07:07 | disposition home or self-care (01) ==
LOC: ED 03:35
DX: L02.411 Cutaneous abscess of right axilla (principal); Z90.49 Acquired absence of other specified parts of digestive tract; Z79.899 Other long term (current) drug therapy
CPT/HCPCS: 99282

== ENCOUNTER 2021-06-01 11:41 | Emergency (ER) | payer SELFPAY | END 2021-06-02 01:47 | disposition home or self-care (01) | LOC: ED 11:41 | DX: R05.9 Cough, unspecified (principal); Z53.21 Procedure and treatment not carried out due to patient leaving prior to being seen by health care provider ==

== ENCOUNTER 2021-06-03 19:30 | Emergency (ER) | payer OTHER ==
[2021-06-03 21:33] VITALS: BP 122/82
[2021-06-04] MEDS ORDERED: ALBUTEROL 2.5 MG/3 ML NEBU IH ONE (01:48)
[2021-06-04] MEDS ORDERED: methylPREDNISolone Sod Succinate 125 MG/2 ML INJ IM ONE (01:48)
[2021-06-04] MEDS ORDERED: IPRATROPIUM 0.02% NEBU 2.5 ML IH ONE (01:48)
[2021-06-04] MEDS ORDERED: KETOROLAC 60 MG/2 ML INJ IM ONE (01:49)
--- NOTE | 2021-06-04 02:22 | XRay Report ---
CHEST 2 VIEWS INDICATION / CLINICAL INFORMATION: cough, dyspnea. COMPARISON: 12/20/2020 FINDINGS: SUPPORT DEVICES: None. HEART / MEDIASTINUM: No significant abnormality. LUNGS / PLEURA: There is chronic peribronchial cuffing bilaterally unchanged from prior chest radiogr aph. There is very mild interstitial prominence, also chronic. Findings may indicate long-standing re active airways disease. No acute pulmonary or pleural disease noted. No pneumothorax. ADDITIONAL FINDINGS: No significant additional findings. IMPRESSION: 1. No acute pulmonary or pleural disease. 2. 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 Signer Name: Ellen Galindo MD Signed: 06/04/2021 2:17 AM Workstation Name: [id number]
--- NOTE | 2021-06-04 03:00 | Emergency Department Report ---
- General Chief Complaint: Upper Respiratory Infection Stated Complaint: covid symtoms Source: patient Mode of arrival: Ambulatory Limitations: No Limitations - History of Present Illness Initial Comments: Patient is a 30-year-old -[place] male with a history of asthma, heavy tobacco abuse and HIV who presents to the ED with complaint of acute onset persistent nasal and sinus congestion, persistent frontal sinus pressure and headache, persistent dry cough with wheezing and shortness of breath, diffuse body aches and pains, pleuritic chest pain for the last 5 days. Patient states that his partner also had similar symptoms but improved. Patient states that the symptoms have worsened especially in the last 24 hours. Patient denies fever, chills, dizziness, syncope, nausea and vomiting or diarrhea, abdominal pain, back pain, neck pain, dysuria, urinary frequency and urgency or change in vision. MD Complaint: cough, rhinorrhea, nasal congestion, sinus pain, other (Shortness of breath, wheezing) -: Sudden, days(s) (5) Severity: severe Severity scale (0 -10): 7 Quality: sharp, aching Consistency: constant Improves With: nothing Worsens With: nothing Context: sick contacts Associated Symptoms: denies other symptoms, myalgias, headache, rhinorrhea, nasal congestion, cough, shortness of breath. denies: fever, chills, diaphoresis, sore throat, stiff neck, chest pain, abdominal pain, nausea, vomiting, diarrhea, dysuria, rash, confusion, right sweats, weight loss, epistaxis, hoarseness, ear pain Treatments Prior to Arrival: "cold medicine" - Related Data Previous Rx's Medication Instructions Recorded Last Taken Type Ketorolac [Toradol] 10 mg PO Q6H PRN #15 tablet 04/12/19 Unknown Rx Benzonatate [Tessalon Perles] 100 mg PO Q8HR #30 capsule 05/07/19 Unknown Rx HYDROcodone/APAP 5-325 [[place] 1 - 2 each PO Q6HR PRN #14 tablet 05/07/19 Unknown Rx 5/325] Acetaminophen/Codeine [Tylenol 1 tab PO Q6H PRN #12 tab 05/27/19 Unknown Rx /Codeine # 3 tab] Benzonatate [Tessalon Perles] 100 mg PO Q8HR PRN #30 capsule 07/29/19 Unknown Rx Amoxicillin/Potassium Clav 1 each PO BID #16 tablet 04/19/20 Unknown Rx [Augmentin 875-125 Tablet] Famotidine [Pepcid] 40 mg PO QHS #30 tablet 04/26/20 Unknown Rx methOCARBAMOL [Robaxin TAB] 750 mg PO Q8H PRN #21 tablet 04/26/20 Unknown Rx traMADoL [Ultram 50 MG tab] 50 mg PO Q6HR PRN #12 tablet 04/26/20 Unknown Rx Benzonatate [Tessalon Perles] 100 mg PO Q8HR PRN #12 capsule 12/20/20 Unknown Rx Acetaminophen/Codeine [Tylenol #3] 1 tab PO Q6H PRN #15 tab 01/24/21 Unknown Rx Chlorhexidine Gluconate [Hibiclens] 10 ml TP BID #240 liquid 01/24/21 Unknown Rx Ketorolac [Toradol] 10 mg PO Q6H PRN #15 tablet 01/24/21 Unknown Rx Albuterol Mdi (or & Nicu Only) 2 puff IH QID PRN #8.5 gram 06/04/21 Unknown Rx [ProAir HFA Inhaler] Cetirizine HCl [Zyrtec 10mg tab] 10 mg PO DAILY #30 tablet 06/04/21 Unknown Rx Ibuprofen [Motrin] 800 mg PO Q8HR PRN #30 tablet 06/04/21 Unknown Rx Montelukast [Singulair] 10 mg PO QPM #30 tablet 06/04/21 Unknown Rx Promethazine/Phenylephrine(Nf) 5 ml PO Q6H PRN #120 ml 06/04/21 Unknown Rx [Promethazine VC 6.25-5 mg/5 ml] Sulfamethoxazole/Trimethoprim 1 each PO Q12H #30 tablet 06/04/21 Unknown Rx [Bactrim DS TAB] methylPREDNISolone [Medrol 4MG 4 mg PO DAILY #21 tab.ds.pk 06/04/21 Unknown Rx DOSEPAK (21 tabs)] Allergies Allergy/AdvReac Type Severity Reaction Status Date / Time No Known Allergies Allergy Verified 01/24/21 04:54 ED Review of Systems ROS: Stated complaint: covid symtoms Other details as noted in HPI Constitutional: denies: chills, fever Eyes: denies: eye pain, eye discharge, vision change ENT: congestion, other (Nasal and sinus congestion with pressure). denies: ear pain, throat pain Respiratory: cough, shortness of breath, wheezing Cardiovascular: chest pain (Pleuritic chest wall pain with cough). denies: palpitations Endocrine: no symptoms reported Gastrointestinal: denies: abdominal pain, nausea, vomiting, diarrhea Genitourinary: denies: urgency, dysuria Musculoskeletal: arthralgia, myalgia. denies: back pain, joint swelling Skin: denies: rash, lesions Neurological: headache. denies: weakness, paresthesias Psychiatric: denies: anxiety, depression Hematological/Lymphatic: denies: easy bleeding, easy bruising ED Past Medical Hx - Past Medical History Hx Hypertension: No Hx Congestive Heart Failure: No Hx Diabetes: No Hx Liver Disease: No Hx Renal Disease: No Hx Asthma: Yes Hx COPD: No Hx Tuberculosis: No Hx HIV: Yes Additional medical history: Infectious disease process (CD4 WNL Winter 2018) - Surgical History Hx Cholecystectomy: Yes - Social History Smoking Status: Never Smoker Substance Use Type: None - Medications Home Medications: Home Medications Medication Instructions Recorded Confirmed Last Taken Type Ketorolac [Toradol] 10 mg PO Q6H PRN #15 tablet 04/12/19 Unknown Rx Benzonatate [Tessalon Perles] 100 mg PO Q8HR #30 capsule 05/07/19 Unknown Rx HYDROcodone/APAP 5-325 [[place] 1 - 2 each PO Q6HR PRN #14 tablet 05/07/19 Unknown Rx 5/325] Acetaminophen/Codeine [Tylenol 1 tab PO Q6H PRN #12 tab 05/27/19 Unknown Rx /Codeine # 3 tab] Benzonatate [Tessalon Perles] 100 mg PO Q8HR PRN #30 capsule 07/29/19 Unknown Rx Amoxicillin/Potassium Clav 1 each PO BID #16 tablet 04/19/20 Unknown Rx [Augmentin 875-125 Tablet] Famotidine [Pepcid] 40 mg PO QHS #30 tablet 04/26/20 Unknown Rx methOCARBAMOL [Robaxin TAB] 750 mg PO Q8H PRN #21 tablet 04/26/20 Unknown Rx traMADoL [Ultram 50 MG tab] 50 mg PO Q6HR PRN #12 tablet 04/26/20 Unknown Rx Benzonatate [Tessalon Perles] 100 mg PO Q8HR PRN #12 capsule 12/20/20 Unknown Rx Acetaminophen/Codeine [Tylenol #3] 1 tab PO Q6H PRN #15 tab 01/24/21 Unknown Rx Chlorhexidine Gluconate [Hibiclens] 10 ml TP BID #240 liquid 01/24/21 Unknown Rx Ketorolac [Toradol] 10 mg PO Q6H PRN #15 tablet 01/24/21 Unknown Rx Albuterol Mdi (or & Nicu Only) 2 puff IH QID PRN #8.5 gram 06/04/21 Unknown Rx [ProAir HFA Inhaler] Cetirizine HCl [Zyrtec 10mg tab] 10 mg PO DAILY #30 tablet 06/04/21 Unknown Rx Ibuprofen [Motrin] 800 mg PO Q8HR PRN #30 tablet 06/04/21 Unknown Rx Montelukast [Singulair] 10 mg PO QPM #30 tablet 06/04/21 Unknown Rx Promethazine/Phenylephrine(Nf) 5 ml PO Q6H PRN #120 ml 06/04/21 Unknown Rx [Promethazine VC 6.25-5 mg/5 ml] Sulfamethoxazole/Trimethoprim 1 each PO Q12H #30 tablet 06/04/21 Unknown Rx [Bactrim DS TAB] methylPREDNISolone [Medrol 4MG 4 mg PO DAILY #21 tab.ds.pk 06/04/21 Unknown Rx DOSEPAK (21 tabs)] ED Physical Exam - General Limitations: No Limitations General appearance: alert, in no apparent distress - Head Head exam: Present: atraumatic, normocephalic, normal inspection - Eye Eye exam: Present: normal appearance, PERRL, EOMI Pupils: Present: normal accommodation - ENT ENT exam: Present: normal orophraynx, mucous membranes moist, TM's normal bilaterally, normal external ear exam, other (Grossly congested nasal passages; palpable frontal sinus tenderness) - Neck Neck exam: Present: normal inspection, full ROM - Respiratory Respiratory exam: Present: wheezes (Diffuse coarse wheezes throughout). Absent: normal lung sounds bilaterally, respiratory distress, rales, rhonchi, chest wall tenderness, accessory muscle use, decreased breath sounds, prolonged expiratory - Cardiovascular Cardiovascular Exam: Present: regular rate, normal rhythm, normal heart sounds. Absent: systolic murmur, diastolic murmur, rubs, gallop - GI/Abdominal GI/Abdominal exam: Present: soft, normal bowel sounds. Absent: tenderness, guarding, rebound, hyperactive bowel sounds, mass - Extremities Exam Extremities exam: Present: normal inspection, full ROM, normal capillary refill - Back Exam Back exam: Present: normal inspection, full ROM. Absent: tenderness, CVA tenderness (R), CVA tenderness (L), muscle spasm, paraspinal tenderness, vertebral tenderness - Neurological Exam Neurological exam: Present: alert, oriented X3, CN II-XII intact, normal gait, reflexes normal - Psychiatric Psychiatric exam: Present: normal affect, normal mood - Skin Skin exam: Present: warm, dry, intact, normal color. Absent: rash ED Course Vital Signs 06/03/21 21:32 Temperature 98.8 F Pulse Rate 83 Respiratory 17 Rate Blood Pressure 122/82 O2 Sat by Pulse 96 Oximetry ED Medical Decision Making - Radiology Data Radiology results: report reviewed, image reviewed [facility] [address] [place] [address] XRay Report Signed Patient: LETICIA DILLARD MR#: [id number] : 1990 Acct:[id number] Age/Sex: 30 / M ADM Date: 06/03/21 Loc: ED Attending Dr: Ordering Physician: HIRAM KENT Date of Service: 06/04/21 Procedure(s): XR chest routine 2V Accession Number(s): [id number] cc: HIRAM KENT Fluoro Time In Minutes: CHEST 2 VIEWS INDICATION / CLINICAL INFORMATION: cough, dyspnea. COMPARISON: 12/20/2020 FINDINGS: SUPPORT DEVICES: None. HEART / MEDIASTINUM: No significant abnormality. LUNGS / PLEURA: There is chronic peribronchial cuffing bilaterally unchanged from prior chest radiograph. There is very mild interstitial prominence, also chronic. Findings may indicate long-s tanding reactive airways disease. No acute pulmonary or pleural disease noted. No pneumothorax. ADDITIONAL FINDINGS: No significant additional findings. IMPRESSION: 1. No acute pulmonary or pleural disease. 2. 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 Signer Name: Ellen Galindo MD Signed: 06/04/2021 2:17 AM Workstation Name: [id number] Transcribed By: JR Dictated By: Ellen Galindo MD Electronically Authenticated By: Ellen Galindo MD Signed Date/Time: 06/04/21216 DD/ 5 TD/TT: Print Cancel - Medical Decision Making This is a 30-year-old -[place] male with a history of asthma, heavy tobacco abuse and HIV who presents to the ED with complaint of acute onset persistent nasal and sinus congestion, persistent frontal sinus pressure and headache, persistent dry cough with wheezing and shortness of breath, diffuse body aches and pains, pleuritic chest pain for the last 5 days. Patient states that his partner also had similar symptoms but improved. Patient states that the symptoms have worsened especially in the last 24 hours. In the ED, patient is alert and oriented x3 and is not in any distress. Patient is hemodynamically stable, with oxygen saturation of 96% in room air. Patient was treated in the ED with DuoNeb, and also received steroid. Chest x-ray showed no acute cardiopulmonary abnormalities or pneumonitis. On reevaluation, patient felt better, wheezing resolved and patient will discharge home on medications. Patient is advised to follow-up with his primary care physician in 5 to 7 days for reevaluation or return to the ED immediately if symptoms get worse. - Differential Diagnosis Asthma; bronchitis; pneumonia; URI; sinusitis; COVID-19 Critical care attestation.: If time is entered above; I have spent that time in minutes in the direct care of this critically ill patient, excluding procedure time. ED Disposition Clinical Impression: Acute upper respiratory infection, Acute frontal sinusitis, Acute bronchitis with asthma with acute exacerbation Disposition: 01 HOME / SELF CARE / HOMELESS Is pt being admited?: No Does the pt Need Aspirin: No Condition: Stable Instructions: Sinusitis, Adult, [id number], Upper Respiratory Infection, Adult, [id number], Cough, Adult, [id number]-[id number], Acute Bronchitis, Adult, Focv-[id number], Asthma, Adult, [id number] Additional Instructions: Chest x-ray showed no acute cardiopulmonary abnormalities or pneumonitis. Therefore take medication with food, drink plenty of fluids and follow-up with your primary care physician in 5 to 7 days for reevaluation. Return to the ED immediately if symptoms get worse. Prescriptions: Sulfamethoxazole/Trimethoprim [Bactrim DS TAB] 1 each PO Q12H #30 tablet methylPREDNISolone [Medrol 4MG DOSEPAK (21 tabs)] 4 mg PO DAILY #21 tab.ds.pk Ibuprofen [Motrin] 800 mg PO Q8HR PRN #30 tablet PRN Reason: Pain , Severe (7-10) Albuterol Mdi (or & Nicu Only) [ProAir HFA Inhaler] 2 puff IH QID PRN #8.5 gram PRN Reason: Shortness Of Breath Promethazine/Phenylephrine(Nf) [Promethazine VC 6.25-5 mg/5 ml] 5 ml PO Q6H PRN #120 ml PRN Reason: Cough Montelukast [Singulair] 10 mg PO QPM #30 tablet Cetirizine HCl [Zyrtec 10mg tab] 10 mg PO DAILY #30 tablet Referrals: [facility] [Provider Group] - 3-5 Days Forms: Work/School Release Form(ED) Time of Disposition: 03:02 Print Language: SLOVENIAN
== END 2021-06-04 03:20 | disposition home or self-care (01) ==
LOC: ED 19:30
DX: J06.9 Acute upper respiratory infection, unspecified (principal); J01.10 Acute frontal sinusitis, unspecified; J45.901 Unspecified asthma with (acute) exacerbation; Z90.49 Acquired absence of other specified parts of digestive tract
CPT/HCPCS: 71046; 94640; 96372; 99283; J1885; J2930

== ENCOUNTER 2021-06-06 13:48 | Emergency (ER) | payer OTHER ==
--- NOTE | 2021-06-06 13:51 | Emergency Department Report ---
Stated Complaint: COUGH Time Seen by Provider: 06/06/21 13:49 - HPI History of Present Illness: seen here earlier in week by Dr Lobato She told pt get a covid test and return to work if neg He got the covid test yesterday and is here for a work note no new symptoms ambulatory and in nad - ROS Review of Systems: no new non toxic - Exam Vital Signs: Vital Signs 06/06/21 14:22 Temperature 98.6 F Pulse Rate 61 Respiratory 22 Rate Blood Pressure 117/60 [Right] O2 Sat by Pulse 97 Oximetry Physical Exam: alert oriented lungs cta s1s2 abd snt MSE screening note: Focused history and physical exam performed. Due to findings the following was ordered: no life threat here for work note Patient discussed with doctor:: MAGO NOLASCO ED Disposition for MSE Clinical Impression: Acute upper respiratory infection Disposition: HOME / SELF CARE / HOMELESS Is pt being admited?: No Does the pt Need Aspirin: No Condition: Stable Additional Instructions: see pcp for additional work notes referral below Referrals: MING GREENFIELD MD [Staff Physician] - 3-5 Days Forms: Work/School Release Form(ED) Time of Disposition: 13:50
[2021-06-06 14:25] VITALS: BP 117/60
== END 2021-06-06 14:38 | disposition home or self-care (01) ==
LOC: ED 13:48
DX: J06.9 Acute upper respiratory infection, unspecified (principal)
CPT/HCPCS: 99282